=== PATIENT | female | born 1940 | race Caucasian/White ===

== ENCOUNTER 2016-11-16 11:17 | Day surgery (SDC) | payer MEDICARE ==
--- NOTE | 2016-11-16 08:34 | HP ---
PROCEDURE DATE: 11/16/16 HISTORY OF PRESENT ILLNESS: The patient is a 76 y/o with multiple medical problems. She had a percutaneous endoscopic gastrostomy tube placement in the past for esophageal cancer and treatments. Now, she is not using it. She is tolerating PO and tubes in for more than a year and she desires removal at this point and is no longer using. PAST MEDICAL HISTORY: Esophageal cancer, diabetes, hypothyroidism, hypercholesterolemia, and arthritis in the past. CURRENT MEDICATIONS: As listed per the list provided per the patient. ALLERGIES: NKDA. PAST SURGICAL HISTORY: Had a cholecystectomy. She had an upper endoscopy in the past. FAMILY HISTORY: Heart disease and cancer. SOCIAL HISTORY: No smoking or alcohol abuse. REVIEW OF SYSTEMS: 12 systems reviewed per admission assessment. No chest pain or palpitations. Other systems negative and noncontributory other than above and per preadmission questionnaire. She has had G tubes placed and removed in the past. She has had upper endoscopy and dilatation in the past. Had a port placed in the past. PHYSICAL EXAMINATION: GENERAL: No acute distress. HEENT: Sclerae nonicteric. NECK: No JVD. CHEST: Equal excursion. Nonlabored breathing. CVS: Regular rate and rhythm. ABDOMEN: Soft. No peritoneal signs. G tube site is okay. EXTREMITIES: No significant edema. NEURO: Alert, moving extremities grossly symmetrically. No gross motor deficits noted. IMPRESSION: 1. NO LONGER USING A FEEDING TUBE. TOLERATING PO WELL. DESIRES REMOVAL. IT IS OKAY WITH DR. GUAN. FEEL SHE IS A CANDIDATE. She has been discussed the option of removing in the office with local or not vs removal under sedation and local in the OR. She prefers proceeding in the OR. Therefore, will remove in the OR under IV sedation and local anesthetic. Risks and benefits explained in detail, but not limited to, bleeding; infection; risk of aches and pains; risk of persistent gastrocutaneous fistula tract that might require other surgical interventions down the road. She understands and agrees to the planned procedure as well as the remote possibility that the percutaneous endoscopic gastrostomy bumper could break off and might require other procedures. She understands all of the above and agrees to the planned procedure. Will proceed with removal of her gastrostomy tube as an outpatient.
[~2016-11-16 11:17] MED LIST: SUBLIMAZE 100 MCG/2 ML IV ONE; Sodium Chloride 0.9% 1000 ML 1,000 ML IV SCH; Sodium Chloride 0.9% 1000 ML 1,000 ML ONE; VERSED 5 MG/5 ML IV ONE
[2016-11-16] MEDS ORDERED: XYLOCAINE 1% HCL 20 ML MDV ONE (11:19)
[2016-11-16] MEDS ORDERED: BACIGUENT 30 GM ONE (13:21)
[2016-11-16 13:52] VITALS: O2SAT 94
[2016-11-16 14:16] VITALS: BP 119/64; PULSE 69
--- NOTE | 2016-11-17 08:35 | OP ---
SURGERY DATE/TIME: 11/16/2016 1303 PREOPERATIVE DIAGNOSIS: History of esophageal cancer, no longer requiring gastrostomy tube with desire for removal. POSTOPERATIVE DIAGNOSIS: History of esophageal cancer, no longer requiring gastrostomy tube with desire for removal. PROCEDURE: Removal of gastrostomy tube with closure of tract. SURGEON: Dr. James Vargas. ANESTHESIA: IV Fentanyl and Versed, 1% lidocaine local. ESTIMATED BLOOD LOSS: Minimal. INDICATIONS: As noted above. Risks and benefits explained in detail and not limited to, including risk of infection, nonhealing of the tract, consent was obtained. DESCRIPTION OF PROCEDURE AND FINDINGS: The patient is taken the operating room. After official time out and no disagreement with the planned procedure, she was incrementally sedated with IV Versed and Fentanyl initially 25 and 1 to start with. She was more alert and moving about. She was given additional IV Versed. It should be noted that she had some chronic low saturations prior to beginning the procedure but was improved on supplemental oxygen and this remained stable throughout the procedure. The area had been prepped and draped in usual sterile fashion. No disagreement with planned procedure, 1% lidocaine local was infiltrated in field pattern around the area. Once this was accomplished the traction on the G-tube carefully pulling the bumper through the tract intact and passed off. As the family reported she had problems with leaking from the tube in the past on past removals decided to go ahead and put some Prolene suture through it. Prolene sutures placed in interrupted fashion. Sterile dressing applied per the nursing staff. Findings discussed with the family out in the waiting area. She tolerated the procedure well. There were no immediate complications.
== END 2016-11-16 14:39 | disposition home or self-care (01) ==
LOC: SDC 11:17
PROVIDERS: ATTEND Surgery
PROC: 2W53XYZ Removal of Other Device on Abdominal Wall (ICD-10-PCS; principal; 2016-11-16)
DX: Z85.01 Personal history of malignant neoplasm of esophagus (principal); E11.9 Type 2 diabetes mellitus without complications; E03.9 Hypothyroidism, unspecified; E78.00 Pure hypercholesterolemia, unspecified; M19.90 Unspecified osteoarthritis, unspecified site; Z80.9 Family history of malignant neoplasm, unspecified
CPT/HCPCS: J1642; J2250; J3010; A9270-GY

== ENCOUNTER 2016-12-15 13:44 | Emergency (ER) | payer MEDICARE ==
[2016-12-15] MEDS ORDERED: BABY ASPIRIN 81 MG CHEW PO ONE (14:01)
[2016-12-15] MEDS ORDERED: Nitrostat 0.4 MG (ED) SL ONE ×2 (14:01→14:32)
--- NOTE | 2016-12-15 14:13 | ERPHSYRPT ---
- History of Present Illness Time Seen by Provider: 12/15/16 14:00 Historian: patient Exam Limitations: clinical condition Patient Subjective Stated Complaint: PT STATES THAT SHE IS HAVING PAIN BEGINNING IN HER CHEST GOING TO HER BACK ET ALL THE WAY DOWN HER ABD-DENIES DIAPHORSIS-DENIES SOB-DENIES N/V/D Triage Nursing Assessment: PT FLUSHED WARM ET [id number] ALL QUESTIONS CORRECTLY-MOVING ALL EXTREMTIIES WITH EASE-ABD SOFT ET NONTENDER Physician History: PATIENT WITH A HISTORY OF HYPO-THYROIDISM, TYPE 2 DIABETES MELLITUS, HYPERTENSION, AND CORONARY ARTERY DISEASE COMPLAINS OF SUBSTERNAL CHEST PAIN WHICH HAS BEEN CONSTANT SINCE 8AM THIS MORNING. THE PATIENT DESCRIBES HER PAIN SHARP PAIN DISCOMFORT, WITH A PAIN SCALE 5/10. DENIES DIAPHORESIS, PALPITATIONS, OR DYSPNEA Timing/Duration: today, hour(s), worse Quality: sharpness Location: substernal Chest Pain Radiation: back Severity of Pain-Max: moderate Severity of Pain-Current: moderate Associated Symptoms: shortness of breath, back pain Prior Chest Pain/Cardiac Workup: angina Nitro Today/Relief: 0.4 mg x 2, provided by ED Aspirin Treatment Today: 325 mg x 1 Allergies/Adverse Reactions: No Known Drug Allergies Allergy (Verified 12/15/16 14:00) Home Medications: Aspirin 81 mg PO DAILY 12/15/16 [History] Famotidine [Pepcid] 40 mg PO DAILY 12/15/16 [History] Glipizide 10 mg [Glucotrol 10 MG] 10 mg PO BID 12/15/16 [History] Levothyroxine Sodium 50 Mcg [Synthroid 50 Mcg] 50 mcg PO DAILY 12/15/16 [ History] Metformin HCl 500 mg [Glucophage 500 MG] 500 mg PO BID 12/15/16 [History] Metoclopramide HCl 10 mg [Reglan 10 MG] 10 mg PO BID 12/15/16 [History] Nebivolol HCl [Bystolic] 10 mg PO BID 12/15/16 [History] Omeprazole 40 mg PO HS 12/15/16 [History] Sucralfate 1 gm [Carafate 1 GM] 1 gm PO DAILY 12/15/16 [History] Hx Tetanus, Diphtheria Vaccination/Date Given: No Hx Influenza Vaccination/Date Given: Yes Hx Pneumococcal Vaccination/Date Given: (unsure) Immunizations Up to Date: Yes - Review of Systems Constitutional: No Fever, No Chills Eyes: No Symptoms Ears, Nose, & Throat: No Symptoms Respiratory: No Symptoms, No Cough, No Dyspnea Cardiac: Chest Pain, No Edema, No Syncope Abdominal/Gastrointestinal: No Symptoms, No Abdominal Pain, No Nausea, No Vomiting, No Diarrhea Genitourinary Symptoms: No Symptoms, No Dysuria Musculoskeletal: No Symptoms, No Back Pain, No Neck Pain Skin: No Symptoms, No Rash Neurological: No Dizziness, No Focal Weakness, No Sensory Changes Psychological: No Symptoms Endocrine: No Symptoms All Other Systems: Reviewed and Negative - Past Medical History Pertinent Past Medical History: Yes Neurological History: No Pertinent History ENT History: Other Cardiac History: Angina, High Cholesterol, Hypertension, Myocardial Infarction ( [place]) Respiratory History: No Pertinent History Endocrine Medical History: Diabetes Type II, Hypothyroidism Musculoskeletal History: Arthritis, Other GI Medical History: GERD, Other History: No Pertinent History Psycho-Social History: Anxiety Female Reproductive Disorders: No Pertinent History Other Medical History: hx fx L wrist, L ankle, Esophageal cancer, wears glasses to read - Past Surgical History Past Surgical History: Yes Neuro Surgical History: No Pertinent History Cardiac: Cardiac Catheterization Respiratory: No Pertinent History Gastrointestinal: Cholecystectomy Genitourinary: No Pertinent History Musculoskeletal: No Pertinent History Female Surgical History: No Pertinent History Other Surgical History: skin cancer surgical removal L F/A, PEG placed, CVL port placed, endoscopic US - x3 times. radiation and chemotherapy, D/C - Social History Smoking Status: Never smoker Exposure to second hand smoke: No Drug Use: none Patient Lives Alone: No - Nursing Vital Signs Temperature: 98.1 F Temperature Source: Oral Pulse Rate: 81 Respiratory Rate: 20 Pain Intensity: 4 - Physical Exam General Appearance: no apparent distress, alert Eye Exam: PERRL/EOMI, eyes nml inspection Ears, Nose, Throat Exam: normal ENT inspection, moist mucous membranes Neck Exam: normal inspection, non-tender, supple, full range of motion Respiratory Exam: normal breath sounds, lungs clear, No respiratory distress Cardiovascular Exam: regular rate/rhythm, normal heart sounds Gastrointestinal/Abdomen Exam: soft, normal bowel sounds, No tenderness, No mass Back Exam: normal inspection, No CVA tenderness, No vertebral tenderness Extremity Exam: normal inspection, normal range of motion, pedal edema (+1 PITTING EDEMA) Neurologic Exam: alert, oriented x 3, cooperative, normal mood/affect, sensation nml, No motor deficits Skin Exam: normal color, warm, dry SpO2 Interpretation: normal SpO2: 97 Oxygen Delivery: Room Air - Course EKG Interpreted by Me: RATE, Sinus Rhythm, NORMAL AXIS - Radiology Exams Chest X-ray Interpretation: Discussed w/ radiologist, Negative, No Pneumonia, No Pneumothorax Ordered Tests: Active Orders 24 hr Category Date Time Status Senior Finance Manager STAT Care 12/15/16 14:01 Active Cath for Residual-In & Out STAT Care 12/15/16 14:01 Inactive Clean Catch Urine Specimen STAT Care 12/15/16 14:07 Active IV Insertion STAT Care 12/15/16 14:01 Active Oxygen-ED Only NASAL CANNULA 2 lpm Care 12/15/16 14:01 Active CHEST 1 VIEW (PORTABLE) Stat Exams 12/15/16 14:03 Completed CBC W DIFF Stat Lab 12/15/16 14:10 Completed CMP Stat Lab 12/15/16 14:10 Completed D-DIMER QUANTITATION Stat Lab 12/15/16 14:10 Completed MAGNESIUM Stat Lab 12/15/16 14:10 Completed NT PRO BNP Stat Lab 12/15/16 14:10 Completed PROTIME WITH INR Stat Lab 12/15/16 14:10 Completed TROPONIN Q3H Lab 12/15/16 14:10 Completed TROPONIN Q3H Lab 12/15/16 17:15 Ordered TROPONIN Q3H Lab 12/15/16 20:15 Ordered TROPONIN Q3H Lab 12/15/16 23:15 Ordered TROPONIN Q3H Lab 12/16/16 02:15 Ordered UA W/ MICROSCOPIC Stat Lab 12/15/16 14:54 Completed Medication Summary Generic Name Dose Route Start Last Admin Trade Name Freq PRN Reason Stop Dose Admin Sodium Chloride 1,000 mls @ 50 mls/hr 12/15/16 14:15 12/15/16 14:38 Sodium Chloride 0.9% 1000 Ml IV 01/14/17 14:14 50 mls/hr .Q20H KHARI Administration Discontinued Medications Generic Name Dose Route Start Last Admin Trade Name Freq PRN Reason Stop Dose Admin Aspirin 324 mg 12/15/16 14:01 12/15/16 14:38 Baby Aspirin 81 Mg Chew PO 12/15/16 14:02 324 mg STAT ONE Administration Aspirin Confirm 12/15/16 14:32 Baby Aspirin 81 Mg Chew Administered 12/15/16 14:33 Dose 324 mg .ROUTE .STK-MED ONE Enoxaparin Sodium 60 mg 12/15/16 15:43 12/15/16 15:58 Enoxaparin Sodium SQ 12/15/16 15:44 60 mg STAT ONE Administration Enoxaparin Sodium Confirm 12/15/16 15:54 Enoxaparin Sodium Administered 12/15/16 15:55 Dose 80 mg SQ .STK-MED ONE Nitroglycerin 0.4 mg 12/15/16 14:01 12/15/16 14:38 Nitrostat 0.4 Mg (Ed) SL 12/15/16 14:02 0.4 mg STAT ONE Administration Nitroglycerin Confirm 12/15/16 14:32 Nitrostat 0.4 Mg (Ed) Administered 12/15/16 14:33 Dose 0.4 mg SL .STK-MED ONE Nitroglycerin 1 gm 12/15/16 15:09 12/15/16 15:58 Nitro-Bid 2% Ud Packets TOP 12/15/16 15:10 1 gm STAT ONE Administration Nitroglycerin Confirm 12/15/16 15:54 Nitro-Bid 2% Ud Packets Administered 12/15/16 15:55 Dose 1 gm .ROUTE .STK-MED ONE Lab/Rad Data: Laboratory Result Diagrams 12/15/16 14:10 12/15/16 14:10 Laboratory Results 12/15/16 12/15/16 12/15/16 Range/Units 14:54 14:10 14:10 WBC (4.0-10.5) K/mm3 RBC (4.1-5.4) M/mm3 Hgb (12.0-16.0) gm/dl Hct (35-47) % MCV (78-100) fl MCH (26-32) pg MCHC (32-36) g/dl RDW (11.5-14.0) % Plt Count (150-450) K/mm3 MPV (6-9.5) fl Gran % (36.0-66.0) % Lymphocytes % (24.0-44.0) % Monocytes % (0.0-12.0) % Eosinophils % (0.00-5.0) % Basophils % (0.0-0.4) % Basophils # (0-0.4) INR 0.94 (0.8-3.0) D-Dimer 1.713 H* (0.00-0.49) mg/L Sodium (136-145) mEq/L Potassium (3.5-5.1) mEq/L Chloride (98-107) mEq/L Carbon Dioxide (21-32) mEq/L Anion Gap (5-15) MEQ/L BUN (9-20) mg/dL Creatinine (0.55-1.30) mg/dl Estimated GFR ML/MIN Glucose (70-110) MG/DL Calcium (8.5-10.1) mg/dL Magnesium (1.8-2.4) mg/dL Total Bilirubin (0.2-1.0) mg/dL AST (15-37) U/L ALT (12-78) U/L Alkaline Phosphatase (46-116) U/L Troponin I < 0.017 (0.000-0.056) ng/ml NT-Pro-B Natriuret Pep (0-450) pg/ml Serum Total Protein (6.4-8.2) gm/dL Albumin (3.4-5.0) g/dL Ur Collection Type VOID Urine Color YELLOW (YELLOW) Urine Appearance CLEAR (CLEAR) Urine pH 7.0 (5-6) Ur Specific [place] 1.020 (1.005-1.025) Urine Protein NEGATIVE (Negative) Urine Glucose (UA) NEGATIVE (NEGATIVE) mg/dL Urine Ketones NEGATIVE (NEGATIVE) Urine Nitrite NEGATIVE (NEGATIVE) Urine Bilirubin NEGATIVE (NEGATIVE) Urine Urobilinogen 1 (0-1) mg/dL Urine WBC (Auto) MODERATE (NEGATIVE) Urine RBC (Auto) NEGATIVE (0-5) [place]/ul Urine Microscopic WBC 5-10 (0-5) /HPF Ur Epithelial Cells RARE (FEW) /HPF Urine Bacteria FEW (NEGATIVE) /HPF Specimen Received 12/15/16 1510 12/15/16 12/15/16 Range/Units 14:10 14:10 WBC 10.4 (4.0-10.5) K/mm3 RBC 4.19 (4.1-5.4) M/mm3 Hgb 13.0 (12.0-16.0) gm/dl Hct 40.3 (35-47) % MCV 96.2 (78-100) fl MCH 31.0 (26-32) pg MCHC 32.3 (32-36) g/dl RDW 13.0 (11.5-14.0) % Plt Count 181 (150-450) K/mm3 MPV 11.0 H (6-9.5) fl Gran % 76.1 H (36.0-66.0) % Lymphocytes % 12.2 L (24.0-44.0) % Monocytes % 10.9 (0.0-12.0) % Eosinophils % 0.6 (0.00-5.0) % Basophils % 0.2 (0.0-0.4) % Basophils # 0.02 (0-0.4) INR (0.8-3.0) D-Dimer (0.00-0.49) mg/L Sodium 138 (136-145) mEq/L Potassium 4.4 (3.5-5.1) mEq/L Chloride 101 (98-107) mEq/L Carbon Dioxide 28.1 (21-32) mEq/L Anion Gap 13.1 (5-15) MEQ/L BUN 34 H (9-20) mg/dL Creatinine 1.19 (0.55-1.30) mg/dl Estimated GFR 47 ML/MIN Glucose 162 H (70-110) MG/DL Calcium 9.3 (8.5-10.1) mg/dL Magnesium 1.7 L (1.8-2.4) mg/dL Total Bilirubin 0.3 (0.2-1.0) mg/dL AST 12 L (15-37) U/L ALT 15 (12-78) U/L Alkaline Phosphatase 65 (46-116) U/L Troponin I (0.000-0.056) ng/ml NT-Pro-B Natriuret Pep 344 (0-450) pg/ml Serum Total Protein 6.6 (6.4-8.2) gm/dL Albumin 3.5 (3.4-5.0) g/dL Ur Collection Type Urine Color (YELLOW) Urine Appearance (CLEAR) Urine pH (5-6) Ur Specific [place] (1.005-1.025) Urine Protein (Negative) Urine Glucose (UA) (NEGATIVE) mg/dL Urine Ketones (NEGATIVE) Urine Nitrite (NEGATIVE) Urine Bilirubin (NEGATIVE) Urine Urobilinogen (0-1) mg/dL Urine WBC (Auto) (NEGATIVE) Urine RBC (Auto) (0-5) [place]/ul Urine Microscopic WBC (0-5) /HPF Ur Epithelial Cells (FEW) /HPF Urine Bacteria (NEGATIVE) /HPF Specimen Received - Progress Progress: improved Progress Note: 12/15/16 15:11 PATIENT GIVEN IV NORMAL SALINE 50ML/HR, NTG 0.4MG SL, PAIN IMPROVED TO 2/10, NITROPASTE 1" ANTERIOR CHEST WALL APPLIED. DDIMER OF 1.7 Discussed with : Other (DR BURNS AT 1600 ACCEPTS TRANSFER TO [facility]IA [facility]) - Departure Time of Disposition: 16:45 Departure Disposition: Transfer Clinical Impression: ACUTE CHEST PAIN Condition: Stable Critical Care Time: No Referrals: CHANI SPANN [Primary Care Provider] -
[2016-12-15] MEDS ORDERED: Sodium Chloride 0.9% 1000 ML 1,000 ML IV SCH (14:15)
[2016-12-15 14:18] LABS: BASOPHIL % 0.2 % (0.0-0.4); Eosinophil % 0.6 % (0.00-5.0); Granulocytes % 76.1 % (36.0-66.0); Lymphocytes % 12.2 % (24.0-44.0); Mean Cell Volume 96.2 fl (78-100); Monocytes % 10.9 % (0.0-12.0); Platelet Count 181 K/mm3 (150-450); Red Blood Count 4.19 M/mm3 (4.1-5.4); White Blood Count 10.4 K/mm3 (4.0-10.5)
--- NOTE | 2016-12-15 14:25 | XRAY ---
Exam: AP portable chest film from 1413 hrs. on 12/15/2016. Comparison: C-arm image of the upper left chest from 11/18/2015 and AP portable chest film from 03/19/2011. Indication: Chest pain since this morning. Findings: There has been an adequate inspiratory effort. A left-sided portacatheter is seen with the tip extending into the SVC pointing inferiorly. The transverse heart size is normal. There is mild tortuosity of the descending thoracic aorta. The remainder the som and mediastinal structures appears unremarkable. A couple tiny calcified granulomas are seen at the right lung base and overlying the right hilum. No air space infiltrates, vascular congestion, pneumothorax, or pleural fluid is seen. There is also a tiny calcified granuloma within the left lung apex. The visualized bones appear intact. Impression: 1. No acute cardiopulmonary process is seen. This is unchanged from 03/19/2011.
[2016-12-15] MEDS ORDERED: Sodium Chloride 0.9% 1000 ML 1,000 ML ONE (14:32)
[2016-12-15] MEDS ORDERED: BABY ASPIRIN 81 MG CHEW ONE (14:32)
[2016-12-15 14:55] LABS: ALBUMIN 3.5 g/dL (3.4-5.0); ANION GAP 13.1 MEQ/L (5-15); BILIRUBIN,TOTAL 0.3 mg/dL (0.2-1.0); Carbon Dioxide 28.1 mEq/L (21-32); MAGNESIUM 1.7 mg/dL (1.8-2.4); Potassium 4.4 mEq/L (3.5-5.1); Total Protein 6.6 gm/dL (6.4-8.2)
[2016-12-15 14:57] LABS: INR 0.94 (0.8-3.0); PROTIME 10.6 SECONDS (9.95-12.35)
[2016-12-15] MEDS ORDERED: NITRO-BID 2% UD PACKETS TOP ONE (15:09)
[2016-12-15 15:32] LABS: Bacteria FEW /HPF (NEGATIVE); COMPLETE URINE MICROSCOPIC? YES; Collection Type VOID; Epithelial Cells RARE /HPF (FEW)
[2016-12-15] MEDS ORDERED: ENOXAPARIN SODIUM SQ ONE ×2 (15:43→15:54)
[2016-12-15] MEDS ORDERED: NITRO-BID 2% UD PACKETS ONE (15:54)
[2016-12-15 16:50] VITALS: PULSE 81; O2SAT 97
[2016-12-15 16:51] VITALS: BP 129/69
== END 2016-12-15 17:45 | disposition short-term general hospital (02) ==
LOC: ED 13:44
DX: R07.89 Other chest pain (principal); I10 Essential (primary) hypertension; E03.9 Hypothyroidism, unspecified; E11.9 Type 2 diabetes mellitus without complications; I25.10 Atherosclerotic heart disease of native coronary artery without angina pectoris; R06.02 Shortness of breath; Z79.899 Other long term (current) drug therapy; Z79.84 Long term (current) use of oral hypoglycemic drugs
CPT/HCPCS: 36000; 36415; 71010; 80053; 81000; 83735; 83880; 84484; 85025; 85379; 85610; 93041; 96360; 96361; 96372; 99285; J1650; A9270-GY

== ENCOUNTER 2018-06-18 18:43 | Emergency (ER) | payer MEDICARE ==
--- NOTE | 2018-06-18 19:11 | ERPHSYRPT ---
- History of Present Illness Time Seen by Provider: 06/18/18 19:35 Source: patient, family Exam Limitations: no limitations Patient Subjective Stated Complaint: shortenss of breath AND pain in her back FOR ABOUT A DAY IN A HALF CONCERNED DUE TO PATIENTS EXTENSIVE CANCER HISTORY Triage Nursing Assessment: PT IS ALERT AND ORIENTEDX3, AMBUALTES BY SELF, GAIT IS STEADY, SOME WEKANESS, GETS WINDED , LUNG SOUNDS CLEAR DIMINISHED, PULSES EQUAL BIALTERAL RADIUS, EDEMA NOTED IN LOWER EXTREMITIES, PEDAL PULSES PRESENT. SKIN WAMR DRY ANDINTACT, SKIN AREA ON LEFT FOREARM THAT IS BEIGN REMOVED BY DR IN NEXT COUPLE WEEKS. Physician History: pt is 77 year old 2 year survivor in remission from esophageal cancer SP rad and chemo in 2015/2016, but with new back pain - prior T spine MET now also short of breath - no CABG or stents but has had CHF - no chest pain at this time; no abd evie PO OK- prior Gpeg tube now out; no fever , no trauma, no blood thinners; Timing/Duration: day(s) Back Pain Location: T-spine Severity of Pain-Max: moderate Severity of Pain-Current: moderate Modifying Factors: Improves With: movement Associated Symptoms: other (short of breath) Previous symptoms: no prior history Allergies/Adverse Reactions: No Known Drug Allergies Allergy (Verified 12/15/16 14:00) Home Medications: Aspirin 81 mg PO DAILY 12/15/16 [History] Famotidine [Pepcid] 40 mg PO DAILY 12/15/16 [History] Glipizide 10 mg [Glucotrol 10 MG] 10 mg PO BID 12/15/16 [History] Levothyroxine Sodium 50 Mcg [Synthroid 50 Mcg] 50 mcg PO DAILY 12/15/16 [ History] Metformin HCl 500 mg [Glucophage 500 MG] 500 mg PO BID 12/15/16 [History] Metoclopramide HCl 10 mg [Reglan 10 MG] 10 mg PO BID 12/15/16 [History] Nebivolol HCl [Bystolic] 10 mg PO BID 12/15/16 [History] Omeprazole 40 mg PO HS 12/15/16 [History] Sucralfate 1 gm [Carafate 1 GM] 1 gm PO DAILY 12/15/16 [History] Hx Tetanus, Diphtheria Vaccination/Date Given: No Hx Influenza Vaccination/Date Given: Yes Hx Pneumococcal Vaccination/Date Given: (unsure) - Review of Systems Constitutional: No Fever, No Chills Eyes: No Symptoms Ears, Nose, & Throat: No Symptoms Respiratory: Dyspnea, No Cough Cardiac: No Chest Pain, No Edema, No Syncope Abdominal/Gastrointestinal: No Abdominal Pain, No Nausea, No Vomiting, No Diarrhea Genitourinary Symptoms: No Dysuria Musculoskeletal: Back Pain, No Neck Pain Skin: No Rash Neurological: No Dizziness, No Focal Weakness, No Sensory Changes Psychological: No Symptoms Endocrine: No Symptoms All Other Systems: Reviewed and Negative - Past Medical History Pertinent Past Medical History: Yes Neurological History: No Pertinent History ENT History: Other Cardiac History: Angina, High Cholesterol, Hypertension, Myocardial Infarction ( [place]) Respiratory History: No Pertinent History Endocrine Medical History: Diabetes Type II, Hypothyroidism Musculoskeletal History: Arthritis, Other GI Medical History: GERD, Other History: No Pertinent History Psycho-Social History: Anxiety Female Reproductive Disorders: No Pertinent History Other Medical History: hx fx L wrist, L ankle, Esophageal cancer, wears glasses to read - Past Surgical History Past Surgical History: Yes Neuro Surgical History: No Pertinent History Cardiac: Cardiac Catheterization Respiratory: No Pertinent History Gastrointestinal: Cholecystectomy Genitourinary: No Pertinent History Musculoskeletal: No Pertinent History Female Surgical History: No Pertinent History Other Surgical History: skin cancer surgical removal L F/A, PEG placed, CVL port placed, endoscopic US - x3 times. radiation and chemotherapy, D/C - Social History Smoking Status: Never smoker Exposure to second hand smoke: No Drug Use: none Patient Lives Alone: No - Female History Hx Now: No - Nursing Vital Signs Nursing Vital Signs: Initial Vital Signs Temperature 97.8 F 06/18/18 18:44 Pulse Rate 87 06/18/18 18:44 Respiratory Rate 18 06/18/18 18:44 Blood Pressure 206/87 06/18/18 18:44 O2 Sat by Pulse Oximetry 98 06/18/18 18:44 Pain Scale Pain Intensity [Upper Back] 0 Pain Intensity 5 - Physical Exam General Appearance: no apparent distress, alert Eye Exam: PERRL/EOMI, eyes nml inspection Ears, Nose, Throat Exam: normal ENT inspection Neck Exam: normal inspection, non-tender, supple, full range of motion, No meningismus, No midline tenderness Respiratory Exam: normal breath sounds, lungs clear, No respiratory distress Cardiovascular Exam: regular rate/rhythm, normal heart sounds Gastrointestinal Exam: soft, No tenderness, No distention, No mass, No guarding , No pulsatile mass, No rebound Pelvic Exam: deferred Rectal Exam: deferred Back Exam: vertebral tenderness, point tenderness Extremity Exam: normal inspection, normal range of motion, No calf tenderness, No pedal edema Peripheral Pulses: carotid (R): 2+, carotid (L): 2+, femoral (R): 2+, femoral (L ): 2+, dorsalis-pedis (R): 2+, dorsalis-pedis (L): 2+ Neurologic Exam: alert, oriented x 3, cooperative, box annealer II-XII nml as tested, normal mood/affect, nml station & gait, sensation nml, No motor deficits Skin Exam: normal color, warm, dry, No rash SpO2 Interpretation: normal SpO2: 98 Oxygen Delivery: Room Air - Course Nursing assessment & vital signs reviewed: Yes EKG Interpreted by Me: Sinus Rhythm, NORMAL AXIS, NORMAL INTERVALS, Non- specific ST Changes, Other (old TN unchanged from November EKG) - Radiology Exams Chest X-ray Interpretation: Reviewed by me, Other (nodules bilateral some previous- pt to see PCP for w/u) Ordered Tests: Active Orders 24 hr Category Date Time Status Postage Machine Operator STAT Care 06/18/18 19:14 Active Clean Catch Urine Specimen STAT Care 06/18/18 19:12 Active EKG-ER Only STAT Care 06/18/18 19:12 Active IV Insertion STAT Care 06/18/18 19:12 Active IV Insertion STAT Care 06/18/18 19:12 Active Pulse Oximetry (ED) STAT Care 06/18/18 19:12 Active CHEST 2 VIEWS (PA AND LAT) Stat Exams 06/18/18 19:13 Taken AMYLASE Stat Lab 06/18/18 19:51 Completed CBC W DIFF Stat Lab 06/18/18 19:51 Completed CMP Stat Lab 06/18/18 19:51 Completed CULTURE,URINE Stat Lab 06/18/18 19:51 Received D-DIMER QUANTITATION Stat Lab 06/18/18 19:51 Completed LIPASE Stat Lab 06/18/18 19:51 Completed Lactic Acid Stat Lab 06/18/18 19:48 Results NT PRO BNP Stat Lab 06/18/18 19:51 Completed TROPONIN Q3H Lab 06/18/18 19:51 Completed TROPONIN Q3H Lab 06/18/18 22:30 Ordered TROPONIN Q3H Lab 06/19/18 01:30 Ordered TROPONIN Q3H Lab 06/19/18 04:30 Ordered TROPONIN Q3H Lab 06/19/18 07:30 Ordered UA W/RFX UR CULTURE Stat Lab 06/18/18 19:51 Completed Medication Summary Generic Name Dose Route Start Last Admin Trade Name Freq PRN Reason Stop Dose Admin Sodium Chloride 1,000 mls @ 50 mls/hr 06/18/18 19:15 06/18/18 19:25 Sodium Chloride 0.9% 1000 Ml IV 07/18/18 19:14 50 mls/hr .Q20H KHARI Administration Discontinued Medications Generic Name Dose Route Start Last Admin Trade Name Freq PRN Reason Stop Dose Admin Lidocaine/Prilocaine 2.5 gm 06/18/18 19:28 06/18/18 19:59 Emla Cream 5 Gm TP 06/18/18 19:29 Not Given STAT ONE Lab/Rad Data: Laboratory Result Diagrams 06/18/18 19:51 06/18/18 19:51 Laboratory Results 06/18/18 06/18/18 06/18/18 Range/Units 19:51 19:51 19:51 WBC (4.0-10.5) K/mm3 RBC (4.1-5.4) M/mm3 Hgb (12.0-16.0) gm/dl Hct (35-47) % MCV (78-100) fl MCH (26-32) pg MCHC (32-36) g/dl RDW (11.5-14.0) % Plt Count (150-450) K/mm3 MPV (6-9.5) fl Gran % (36.0-66.0) % Eos # (Auto) (0-0.5) Absolute Lymphs (auto) (1.0-4.6) Absolute Monos (auto) (0.0-1.3) Lymphocytes % (24.0-44.0) % Monocytes % (0.0-12.0) % Eosinophils % (0.00-5.0) % Basophils % (0.0-0.4) % Absolute Granulocytes (1.4-6.9) Basophils # (0-0.4) D-Dimer 596 H* (215-500) ng/mL Sodium (137-145) mmol/L Potassium (3.5-5.1) mmol/L Chloride (98-107) mmol/L Carbon Dioxide (22-30) mmol/L Anion Gap (5-15) MEQ/L BUN (7-17) mg/dL Creatinine (0.52-1.04) mg/dL Estimated GFR ML/MIN Glucose (74-106) mg/dL Lactic Acid (0.4-2.0) Calcium (8.4-10.2) mg/dL Total Bilirubin (0.2-1.3) mg/dL AST (14-36) U/L ALT (0-35) U/L Alkaline Phosphatase (38-126) U/L Troponin I < 0.012 (0.000-0.034) ng/mL NT-Pro-B Natriuret Pep (0-1800) pg/mL Serum Total Protein (6.3-8.2) g/dL Albumin (3.5-5.0) g/dL Amylase (30-110) U/L Lipase (23-300) U/L Urine Color YELLOW (YELLOW) Urine Appearance SLIGHTLY CLOUDY (CLEAR) Urine pH 6.0 (5-6) Ur Specific [place] 1.011 (1.005-1.025) Urine Protein NEGATIVE (Negative) Urine Ketones NEGATIVE (NEGATIVE) Urine Blood NEGATIVE (0-5) Ded[place]/ul Urine Nitrite NEGATIVE (NEGATIVE) Urine Bilirubin NEGATIVE (NEGATIVE) Urine Urobilinogen NORMAL (0-1) mg/dL Ur Leukocyte Esterase LARGE (NEGATIVE) Urine WBC (Auto) 6-10 (0-5) /HPF Urine RBC (Auto) 0-2 (0-2) /HPF U Epithel Cells (Auto) RARE (FEW) /HPF Urine Bacteria (Auto) RARE (NEGATIVE) /HPF U Non-Squamous Epi Cells RARE (FEW) /HPF Urine Mucus (Auto) SLIGHT (NEGATIVE) /HPF Urine Culture Reflexed YES (NO) Urine Glucose 50 (NEGATIVE) mg/dL 06/18/18 06/18/18 06/18/18 Range/Units 19:51 19:51 19:48 WBC 8.4 (4.0-10.5) K/mm3 RBC 4.69 (4.1-5.4) M/mm3 Hgb 11.5 L (12.0-16.0) gm/dl Hct 36.3 (35-47) % MCV 77.4 L (78-100) fl MCH 24.5 L (26-32) pg MCHC 31.7 L (32-36) g/dl RDW 14.6 H (11.5-14.0) % Plt Count 226 (150-450) K/mm3 MPV 9.8 H (6-9.5) fl Gran % 63.4 (36.0-66.0) % Eos # (Auto) 0.17 (0-0.5) Absolute Lymphs (auto) 1.94 (1.0-4.6) Absolute Monos (auto) 0.90 (0.0-1.3) Lymphocytes % 23.2 L (24.0-44.0) % Monocytes % 10.8 (0.0-12.0) % Eosinophils % 2.0 (0.00-5.0) % Basophils % 0.6 (0.0-0.4) % Absolute Granulocytes 5.31 (1.4-6.9) Basophils # 0.05 (0-0.4) D-Dimer (215-500) ng/mL Sodium 131 L (137-145) mmol/L Potassium 4.6 (3.5-5.1) mmol/L Chloride 90 L (98-107) mmol/L Carbon Dioxide 29 (22-30) mmol/L Anion Gap 16.7 H (5-15) MEQ/L BUN 16 (7-17) mg/dL Creatinine 1.04 (0.52-1.04) mg/dL Estimated GFR 54.5 ML/MIN Glucose 237 H (74-106) mg/dL Lactic Acid 2.4 H (0.4-2.0) Calcium 9.6 (8.4-10.2) mg/dL Total Bilirubin 0.20 (0.2-1.3) mg/dL AST 16 (14-36) U/L ALT 14 (0-35) U/L Alkaline Phosphatase 56 (38-126) U/L Troponin I (0.000-0.034) ng/mL NT-Pro-B Natriuret Pep 528 (0-1800) pg/mL Serum Total Protein 7.1 (6.3-8.2) g/dL Albumin 4.6 (3.5-5.0) g/dL Amylase 48 (30-110) U/L Lipase 24 (23-300) U/L Urine Color (YELLOW) Urine Appearance (CLEAR) Urine pH (5-6) Ur Specific [place] (1.005-1.025) Urine Protein (Negative) Urine Ketones (NEGATIVE) Urine Blood (0-5) Dedrick/ul Urine Nitrite (NEGATIVE) Urine Bilirubin (NEGATIVE) Urine Urobilinogen (0-1) mg/dL Ur Leukocyte Esterase (NEGATIVE) Urine WBC (Auto) (0-5) /HPF Urine RBC (Auto) (0-2) /HPF U Epithel Cells (Auto) (FEW) /HPF Urine Bacteria (Auto) (NEGATIVE) /HPF U Non-Squamous Epi Cells (FEW) /HPF Urine Mucus (Auto) (NEGATIVE) /HPF Urine Culture Reflexed (NO) Urine Glucose (NEGATIVE) mg/dL - Progress Progress: improved, re-examined Progress Note: 06/18/18 20:37 discussed slight elevated D-Dimer with pt and family and risk for PE and - she is not sobreath now and has had good pulso ox so lower risk of major pe , but explained there could be one undetected or forming DVTs - they wish to decline further w/u such as PE angio or alternatives such as venous US as well after discussion of risk/benefits , and wish to f/u PCP and return if furhter symptoms- I also advised of lung nodules which may be increased , but need comparison to prior lung findings in same area , and also of some mild increased compression of vertebrae since 2017 , but with interventions in some and they will see their DrGe to check for progression and for further recur of cancer; 06/18/18 20:41 06/18/18 20:57 the pt and family also wish to wait further eval with their prior to any anticoag proph , after discussion of risks and benefits. Counseled pt/family regarding: lab results, diagnosis, need for follow-up, rad results - Departure Time of Disposition: 20:42 Departure Disposition: Home Clinical Impression: prog of comp fractures T sp with int rep, Lung nodules Condition: Good Critical Care Time: No Referrals: SPANN,CHANI D [Primary Care Provider] - Instructions: Vertebral Compression Fracture, Multiple Pulmonary Nodules Additional Instructions: you have treated compression fractures which appear stable , but also some additional compression since december 2016, which need to be compared to an interval film when available with your Drs. in order to rule out a progression since your last treatments. You have some lung scars and/or nodules several of which seem to have been present in 2017 and 2015 , but again need to be compared to your more recent films to exclude a process there - by your Drs. You do have a slightly elevated test which sometimes indicates a blood clot , but can be elevated from several other things, so additional workup has been advised to evaluate this. Since you are at a risk for blood clots , and cardiac disease progression, keep this in mind to return if any further breathing or heart symptoms.
[2018-06-18] MEDS ORDERED: Sodium Chloride 0.9% 1000 ML 1,000 ML IV SCH (19:15)
[2018-06-18] MEDS ORDERED: Sodium Chloride 0.9% 1000 ML 1,000 ML ONE (19:23)
[2018-06-18] MEDS ORDERED: EMLA Cream 5 GM TP ONE (19:28)
[2018-06-18 19:55] LABS: BASOPHIL % 0.6 % (0.0-0.4); Basophil (Absolute #) 0.05 (0-0.4); Eosinophil (Absolute #) 0.17 (0-0.5); Granulocyte Absolute (ANC) 5.31 (1.4-6.9); Granulocytes % 63.4 % (36.0-66.0); Hematocrit 36.3 % (35-47); Hemoglobin 11.5 gm/dl (12.0-16.0); Lymphocyte (Absolute #) 1.94 (1.0-4.6); Lymphocytes % 23.2 % (24.0-44.0); Mean Cell Volume 77.4 fl (78-100); Mean Corpuscular Hemoglobin 24.5 pg (26-32); Mean Corpuscular Hgb Concent. 31.7 g/dl (32-36); Mean Platelet Volume 9.8 fl (6-9.5); Monocytes % 10.8 % (0.0-12.0); Platelet Count 226 K/mm3 (150-450); Red Blood Count 4.69 M/mm3 (4.1-5.4); Red Cell Distribution Width 14.6 % (11.5-14.0); White Blood Count 8.4 K/mm3 (4.0-10.5)
[2018-06-18 19:55] LABS: Lactic Acid 2.4 (0.4-2.0)
[2018-06-18 20:01] LABS: Glucose 50 mg/dL (NEGATIVE); Protein,Urine Dip NEGATIVE (Negative)
[2018-06-18 20:04] LABS: Appearance SLIGHTLY CLOUDY (CLEAR); Ketones NEGATIVE (NEGATIVE); Leukocyte Esterase LARGE (NEGATIVE); Nitrite NEGATIVE (NEGATIVE); Specific Gravity 1.011 (1.005-1.025)
[2018-06-18 20:05] LABS: Bilirubin NEGATIVE (NEGATIVE); Blood NEGATIVE Ery/ul (0-5); Urobilinogen NORMAL mg/dL (0-1)
[2018-06-18 20:28] LABS: ALBUMIN 4.6 g/dL (3.5-5.0); ANION GAP 16.7 MEQ/L (5-15); BILIRUBIN,TOTAL 0.2 mg/dL (0.2-1.3); Calcium 9.6 mg/dL (8.4-10.2); Creatinine 1 1.04 mg/dL (0.52-1.04); Potassium 4.6 mmol/L (3.5-5.1); Total Protein 7.1 g/dL (6.3-8.2)
[2018-06-18 20:42] VITALS: O2SAT 98
[2018-06-18 21:18] VITALS: BP 160/92; PULSE 75
--- NOTE | 2018-06-18 22:30 | XRAY ---
Indication: Short of breath and back pain. No known injury. Comparison: December 15, 2016. PA/lateral chest remains hyperinflated and clear again with a few incidental tiny calcified granulomas. Heart is not enlarged with stable left Port-A-Cath. Bony thorax intact again with mild osteopenia and degenerative changes. Interval T7-T10 kyphoplasty. Impression: Nonacute hyperinflated chest with chronic features.
== END 2018-06-18 21:16 | disposition home or self-care (01) ==
LOC: ED 18:43
DX: M48.54XS Collapsed vertebra, not elsewhere classified, thoracic region, sequela of fracture (principal); R91.1 Solitary pulmonary nodule; R79.1 Abnormal coagulation profile; F41.9 Anxiety disorder, unspecified; Z85.828 Personal history of other malignant neoplasm of skin; E78.00 Pure hypercholesterolemia, unspecified; I10 Essential (primary) hypertension; I25.2 Old myocardial infarction; E11.9 Type 2 diabetes mellitus without complications; Z79.4 Long term (current) use of insulin; E03.9 Hypothyroidism, unspecified; M19.90 Unspecified osteoarthritis, unspecified site; K21.9 Gastro-esophageal reflux disease without esophagitis; Z79.899 Other long term (current) drug therapy
CPT/HCPCS: 36000; 36415; 71046; 80053; 81001; 82150; 83605; 83690; 83880; 84484; 85025; 85379; 87086; 93005; 93041; 96360; 96361; 96365; 99284; A9270-GY

== ENCOUNTER 2018-09-08 13:16 | Emergency (ER) | payer MEDICARE ==
--- NOTE | 2018-09-08 13:59 | ERPHSYRPT ---
- History of Present Illness Time Seen by Provider: 09/08/18 13:47 Source: patient Exam Limitations: no limitations Physician History: The patient is a 77-year-old female with a friend complaining that she has a gradual onset of shortness of breath the last 2 weeks. Today when she stood up and walked across the floor to answer the door, she became dizzy and felt like she would pass out. An hour or 2 later when her friend came over, she became lightheaded once again when she stood up and walked a few steps. The patient is concerned because she had a cardiac stent placed about 4 weeks ago. The friend took her to [facility] quickly brought her here to the ER. She denies chest pain. She denies nausea or vomiting. As she is lying in bed , she denies any shortness of breath. She has no local doctor. Her past medical history is significant for cardiac stent placement, CAD, hypertension, GERD, CHF, hypothyroidism, malignant skin cancer. Her rn postpartum is Dr Brad Akers. Timing/Duration: gradual onset, worse Activities at Onset: none Severity of Dyspnea-Max: mild Severity of Dyspnea-Current: mild Possible Cause: no prior episodes Modifying Factors: Improves With: activity, exertion Associated Symptoms: lightheadedness, No cough, No chest pain/discomfort, No edema, No wheezing Allergies/Adverse Reactions: No Known Drug Allergies Allergy (Verified 12/15/16 14:00) Home Medications: Aspirin 81 mg PO DAILY 12/15/16 [History] Levothyroxine Sodium 50 Mcg [Synthroid 50 Mcg] 50 mcg PO DAILY 12/15/16 [ History] Metformin HCl 500 mg [Glucophage 500 MG] 500 mg PO BID 12/15/16 [History] Metoclopramide HCl 10 mg [Reglan 10 MG] 5 mg PO BID 12/15/16 [History] Nebivolol HCl [Bystolic] 5 mg PO DAILY 12/15/16 [History] Sucralfate 1 gm [Carafate 1 GM] 1 gm PO DAILY 12/15/16 [History] Calcium Carbonate/Vitamin D3 [Caltrate 600 + D Tablet] 1 each PO BID 09/08/18 [ History] Clopidogrel Bisulfate [Clopidogrel] 75 mg PO DAILY 09/08/18 [History] Cyanocobalamin (Vitamin B-12) [Vitamin B-12] 1,500 mcg PO DAILY 09/08/18 [ History] Furosemide 20 mg [Lasix 20 mg] 20 mg PO DAILY 09/08/18 [History] Hydrocodone/Acetaminophen [Hydrocodone-Acetamin 5-325 mg] 1 tab PO Q4-6HPRN PRN 09/08/18 [History] Iron 27 mg PO DAILY 09/08/18 [History] Magnesium Chloride [Slow-Mag] 143 mg PO DAILY 09/08/18 [History] Multivitamin [Multi-Vitamin Daily] 1 each PO DAILY 09/08/18 [History] PANTOPRAZOLE 40 mg Tablet [Protonix 40MG Tablet] 40 mg PO QAM 09/08/18 [ History] Prochlorperazine Maleate 10 mg [Compazine 10 mg] 10 mg PO UD PRN 09/08/18 [ History] Ranitidine HCl [Zantac] 300 mg PO DAILY 09/08/18 [History] Simvastatin 20 mg PO DAILY 09/08/18 [History] Spironolactone 25 mg PO DAILY 09/08/18 [History] Hx Tetanus, Diphtheria Vaccination/Date Given: No Hx Influenza Vaccination/Date Given: Yes Hx Pneumococcal Vaccination/Date Given: (unsure) - Review of Systems Constitutional: No Fever, No Chills Eyes: No Symptoms Ears, Nose, & Throat: No Symptoms Respiratory: Dyspnea on Exertion (VEGA) Cardiac: No Chest Pain, No Edema, No Syncope Abdominal/Gastrointestinal: No Abdominal Pain, No Nausea, No Vomiting, No Diarrhea Genitourinary Symptoms: No Dysuria Musculoskeletal: No Back Pain, No Neck Pain Skin: No Rash Neurological: No Dizziness, No Focal Weakness, No Sensory Changes Psychological: No Symptoms Endocrine: No Symptoms Hematologic/Lymphatic: No Symptoms Immunological/Allergic: No Symptoms All Other Systems: Reviewed and Negative - Past Medical History Pertinent Past Medical History: Yes Neurological History: No Pertinent History ENT History: Other Cardiac History: Angina, High Cholesterol, Hypertension, Myocardial Infarction ( [place]) Respiratory History: No Pertinent History Endocrine Medical History: Diabetes Type II, Hypothyroidism Musculoskeletal History: Arthritis, Other GI Medical History: GERD, Other History: No Pertinent History Psycho-Social History: Anxiety Female Reproductive Disorders: No Pertinent History Other Medical History: hx fx L wrist, L ankle, Esophageal cancer, wears glasses to read - Past Surgical History Past Surgical History: Yes Neuro Surgical History: No Pertinent History Cardiac: Cardiac Catheterization Respiratory: No Pertinent History Gastrointestinal: Cholecystectomy Genitourinary: No Pertinent History Musculoskeletal: No Pertinent History Female Surgical History: No Pertinent History Other Surgical History: skin cancer surgical removal L F/A, PEG placed, CVL port placed, endoscopic US - x3 times. radiation and chemotherapy, D/C - Social History Smoking Status: Never smoker Exposure to second hand smoke: No Drug Use: none Patient Lives Alone: No - Nursing Vital Signs Nursing Vital Signs: Initial Vital Signs Temperature 98.2 F 09/08/18 13:19 Pulse Rate 98 H 09/08/18 13:19 Respiratory Rate 16 09/08/18 13:19 Blood Pressure 119/66 09/08/18 13:19 O2 Sat by Pulse Oximetry 97 09/08/18 13:19 Pain Scale Pain Intensity 0 - Physical Exam General Appearance: no apparent distress, alert Eye Exam: PERRL/EOMI Neck Exam: normal inspection, supple Respiratory Exam: normal breath sounds, lungs clear, No crackles/rales, No rhonchi, No wheezing Cardiovascular/Chest Exam: normal heart sounds, regular rate/rhythm Abdominal/Gastrointestinal Exam: soft, No tenderness, No distention, No mass Rectal Exam: not done Extremity Exam: non-tender, normal range of motion, normal inspection, no calf tenderness, no pedal edema Neurologic Exam: alert, oriented x 3, cooperative, rf engineer II-XII nml as tested, sensation nml, No motor deficits Skin Exam: normal color, other (left wrist is bandaged from skin excision) Lymphatic Exam: No adenopathy SpO2 Interpretation: normal - Course EKG Interpreted by Me: RATE, Sinus Rhythm, NORMAL AXIS, NORMAL INTERVALS, NORMAL QRS, Q-wave (old inferior SC), Other (no change comp to EKG from .) - Radiology Exams Chest X-ray Interpretation: Reviewed by me, Teleradiologist Report (per Dr Leary), Negative (stable nonacute chest.) Ordered Tests: Active Orders 24 hr Category Date Time Status Parts And Service Manager STAT Care 09/08/18 14:08 Active Clean Catch Urine Specimen STAT Care 09/08/18 14:07 Active EKG-ER Only STAT Care 09/08/18 14:07 Active IV Insertion STAT Care 09/08/18 14:07 Active Orthostatic Vital Signs STAT Care 09/08/18 14:09 Active Pulse Oximetry (ED) STAT Care 09/08/18 14:07 Active CHEST 2 VIEWS (PA AND LAT) Stat Exams 09/08/18 14:08 Completed CBC W DIFF Stat Lab 09/08/18 14:07 Completed CMP Stat Lab 09/08/18 14:15 Completed CULTURE,URINE Stat Lab 09/08/18 14:31 Received D-DIMER QUANTITATION Stat Lab 09/08/18 14:15 Completed NT PRO BNP Stat Lab 09/08/18 14:15 Completed PROTIME WITH INR Stat Lab 09/08/18 14:15 Completed TROPONIN Q3H Lab 09/08/18 14:15 Completed TROPONIN Q3H Lab 09/08/18 17:15 Ordered TROPONIN Q3H Lab 09/08/18 20:15 Ordered TROPONIN Q3H Lab 09/08/18 23:15 Ordered TROPONIN Q3H Lab 09/09/18 02:15 Ordered UA W/RFX UR CULTURE Stat Lab 09/08/18 14:31 Completed Medication Summary Generic Name Dose Route Start Last Admin Trade Name Freq PRN Reason Stop Dose Admin Sodium Chloride 1,000 mls @ 100 mls/hr 09/08/18 14:15 09/08/18 15:07 Sodium Chloride 0.9% 1000 Ml IV 10/08/18 14:14 100 mls/hr .Q10H KHARI Administration Lab/Rad Data: Laboratory Result Diagrams 09/08/18 14:07 09/08/18 14:15 Laboratory Results 09/08/18 09/08/18 09/08/18 Range/Units 14:31 14:16 14:15 WBC (4.0-10.5) K/mm3 RBC (4.1-5.4) M/mm3 Hgb (12.0-16.0) gm/dl Hct (35-47) % MCV (78-100) fl MCH (26-32) pg MCHC (32-36) g/dl RDW (11.5-14.0) % Plt Count (150-450) K/mm3 MPV (6-9.5) fl Gran % (36.0-66.0) % Eos # (Auto) (0-0.5) Absolute Lymphs (auto) (1.0-4.6) Absolute Monos (auto) (0.0-1.3) Lymphocytes % (24.0-44.0) % Monocytes % (0.0-12.0) % Eosinophils % (0.00-5.0) % Basophils % (0.0-0.4) % Absolute Granulocytes (1.4-6.9) Basophils # (0-0.4) PT (9.95-12.35) SECONDS INR (0.8-3.0) D-Dimer (215-500) ng/mL Sodium (137-145) mmol/L Potassium (3.5-5.1) mmol/L Chloride (98-107) mmol/L Carbon Dioxide (22-30) mmol/L Anion Gap (5-15) MEQ/L BUN (7-17) mg/dL Creatinine (0.52-1.04) mg/dL Estimated GFR ML/MIN Glucose (74-106) mg/dL Calcium (8.4-10.2) mg/dL Total Bilirubin (0.2-1.3) mg/dL AST (14-36) U/L ALT (0-35) U/L Alkaline Phosphatase (38-126) U/L Troponin I < 0.012 (0.000-0.034) ng/mL NT-Pro-B Natriuret Pep (0-1800) pg/mL Serum Total Protein (6.3-8.2) g/dL Albumin (3.5-5.0) g/dL Urine Color YELLOW (YELLOW) Urine Appearance SLIGHTLY CLOUDY (CLEAR) Urine pH 6.0 (5-6) Ur Specific [place] 1.012 (1.005-1.025) Urine Protein NEGATIVE (Negative) Urine Ketones NEGATIVE (NEGATIVE) Urine Blood NEGATIVE (0-5) [place]/ul Urine Nitrite NEGATIVE (NEGATIVE) Urine Bilirubin NEGATIVE (NEGATIVE) Urine Urobilinogen NEGATIVE (0-1) mg/dL Ur Leukocyte Esterase LARGE (NEGATIVE) Urine WBC (Auto) 11-15 (0-5) /HPF Urine RBC (Auto) 3-5 (0-2) /HPF U Epithel Cells (Auto) RARE (FEW) /HPF Urine Bacteria (Auto) RARE (NEGATIVE) /HPF Urine Mucus (Auto) SLIGHT (NEGATIVE) /HPF Urine Culture Reflexed YES (NO) Urine Glucose NEGATIVE (NEGATIVE) mg/dL Influenza Type A Ag NEGATIVE (NEGATIVE) Influenza Type B Ag NEGATIVE (NEGATIVE) RSV (PCR) NEGATIVE (Negative) 09/08/18 09/08/18 09/08/18 Range/Units 14:15 14:15 14:07 WBC 13.5 H (4.0-10.5) K/mm3 RBC 5.43 H (4.1-5.4) M/mm3 Hgb 12.9 (12.0-16.0) gm/dl Hct 40.6 (35-47) % MCV 74.8 L (78-100) fl MCH 23.7 L (26-32) pg MCHC 31.8 L (32-36) g/dl RDW 15.9 H (11.5-14.0) % Plt Count 297 (150-450) K/mm3 MPV 10.2 H (6-9.5) fl Gran % 74.6 H (36.0-66.0) % Eos # (Auto) 0.26 (0-0.5) Absolute Lymphs (auto) 1.99 (1.0-4.6) Absolute Monos (auto) 1.13 (0.0-1.3) Lymphocytes % 14.8 L (24.0-44.0) % Monocytes % 8.4 (0.0-12.0) % Eosinophils % 1.9 (0.00-5.0) % Basophils % 0.3 (0.0-0.4) % Absolute Granulocytes 10.03 H (1.4-6.9) Basophils # 0.04 (0-0.4) PT 11.3 (9.95-12.35) SECONDS INR 0.97 (0.8-3.0) D-Dimer 465 (215-500) ng/mL Sodium 129 L (137-145) mmol/L Potassium 5.0 (3.5-5.1) mmol/L Chloride 88 L (98-107) mmol/L Carbon Dioxide 26 (22-30) mmol/L Anion Gap 20.5 H (5-15) MEQ/L BUN 29 H (7-17) mg/dL Creatinine 1.36 H (0.52-1.04) mg/dL Estimated GFR 40.0 ML/MIN Glucose 221 H (74-106) mg/dL Calcium 10.2 (8.4-10.2) mg/dL Total Bilirubin 0.50 (0.2-1.3) mg/dL AST 27 (14-36) U/L ALT 18 (0-35) U/L Alkaline Phosphatase 74 (38-126) U/L Troponin I (0.000-0.034) ng/mL NT-Pro-B Natriuret Pep 254 (0-1800) pg/mL Serum Total Protein 8.1 (6.3-8.2) g/dL Albumin 5.1 H (3.5-5.0) g/dL Urine Color (YELLOW) Urine Appearance (CLEAR) Urine pH (5-6) Ur Specific [place] (1.005-1.025) Urine Protein (Negative) Urine Ketones (NEGATIVE) Urine Blood (0-5) [place]/ul Urine Nitrite (NEGATIVE) Urine Bilirubin (NEGATIVE) Urine Urobilinogen (0-1) mg/dL Ur Leukocyte Esterase (NEGATIVE) Urine WBC (Auto) (0-5) /HPF Urine RBC (Auto) (0-2) /HPF U Epithel Cells (Auto) (FEW) /HPF Urine Bacteria (Auto) (NEGATIVE) /HPF Urine Mucus (Auto) (NEGATIVE) /HPF Urine Culture Reflexed (NO) Urine Glucose (NEGATIVE) mg/dL Influenza Type A Ag (NEGATIVE) Influenza Type B Ag (NEGATIVE) RSV (PCR) (Negative) - Progress Progress: improved Air Movement: good Progress Note: 09/08/18 16:12 Respiratory therapy walked the patient in the hallway with a portable O2 saturation monitor. The patient never once complaining of feeling short of breath or feeling like she would pass out. Her O2 saturation did drop down to 90%. The patient wants to go home. Blood Culture(s) Obtained: No Antibiotics given: No Counseled pt/family regarding: lab results, need for follow-up, rad results - Departure Time of Disposition: 16:13 Departure Disposition: Home Clinical Impression: Near syncope, UTI (urinary tract infection) Condition: Stable Critical Care Time: No Referrals: CHANI AKERS [Primary Care Provider] - Additional Instructions: You had a couple of years fainting spells at home today. Your heart checked out just fine in the ER including the laboratory results and the EKG. You felt fine when you were walk up and down the [place] with a oxygen saturation probe on your finger. You have a mild UTI. Take Macrobid 100 mg 2 times a day for 7 days. Follow-up with your primary medical doctor on Wednesday. Prescriptions: Nitrofurantoin Macro 100 mg [Macrobid 100MG Capsule] 100 mg PO BID #14 capsule
[2018-09-08 14:15] LABS: BASOPHIL % 0.3 % (0.0-0.4); Basophil (Absolute #) 0.04 (0-0.4); Eosinophil % 1.9 % (0.00-5.0); Eosinophil (Absolute #) 0.26 (0-0.5); Granulocytes % 74.6 % (36.0-66.0); Hematocrit 40.6 % (35-47); Hemoglobin 12.9 gm/dl (12.0-16.0); Lymphocyte (Absolute #) 1.99 (1.0-4.6); Lymphocytes % 14.8 % (24.0-44.0); Mean Cell Volume 74.8 fl (78-100); Mean Corpuscular Hemoglobin 23.7 pg (26-32); Mean Corpuscular Hgb Concent. 31.8 g/dl (32-36); Mean Platelet Volume 10.2 fl (6-9.5); Monocyte (Absolute #) 1.13 (0.0-1.3); Monocytes % 8.4 % (0.0-12.0); Platelet Count 297 K/mm3 (150-450); Red Blood Count 5.43 M/mm3 (4.1-5.4); Red Cell Distribution Width 15.9 % (11.5-14.0); White Blood Count 13.5 K/mm3 (4.0-10.5)
[2018-09-08] MEDS ORDERED: Sodium Chloride 0.9% 1000 ML 1,000 ML IV SCH (14:15)
[2018-09-08 14:16] LABS: INR 0.97 (0.8-3.0); PROTIME 11.3 SECONDS (9.95-12.35)
[2018-09-08 14:29] LABS: ALBUMIN 5.1 g/dL (3.5-5.0); ANION GAP 20.5 MEQ/L (5-15); BILIRUBIN,TOTAL 0.5 mg/dL (0.2-1.3); Calcium 10.2 mg/dL (8.4-10.2); Creatinine 1 1.36 mg/dL (0.52-1.04); Total Protein 8.1 g/dL (6.3-8.2)
[2018-09-08 14:42] VITALS: O2SAT 98
--- NOTE | 2018-09-08 14:42 | XRAY ---
Indication: Short of breath. Comparison: June 18, 2018. PA/lateral chest remains hyperinflated and clear again with incidental tiny calcified granulomas. Heart and mediastinal structures within normal limits again with left Port-A-Cath. Bony thorax intact again with mild osteopenia, degenerative changes, and T7-T10 kyphoplasty. Impression: Stable nonacute hyperinflated chest with chronic features.
[2018-09-08 15:02] LABS: INFLUENZA A NEGATIVE (NEGATIVE); INFLUENZA B NEGATIVE (NEGATIVE); RESPIRATORY SYNCTIAL VIRUS NEGATIVE (Negative)
[2018-09-08] MEDS ORDERED: Sodium Chloride 0.9% 1000 ML 1,000 ML ONE (15:04)
[2018-09-08 15:15] VITALS: BP 121/72
[2018-09-08 15:15] LABS: Appearance SLIGHTLY CLOUDY (CLEAR); Bacteria RARE /HPF (NEGATIVE); Bilirubin NEGATIVE (NEGATIVE); Blood NEGATIVE Ery/ul (0-5); Epithelial Cells RARE /HPF (FEW); Glucose NEGATIVE (NEGATIVE); Ketones NEGATIVE (NEGATIVE); Leukocyte Esterase LARGE (NEGATIVE); Mucus SLIGHT /HPF (NEGATIVE); Nitrite NEGATIVE (NEGATIVE); Protein,Urine Dip NEGATIVE (Negative); Specific Gravity 1.012 (1.005-1.025); Urobilinogen NEGATIVE mg/dL (0-1)
[2018-09-08 16:15] VITALS: PULSE 91
== END 2018-09-08 16:28 | disposition home or self-care (01) ==
LOC: ED 13:16
DX: R55 Syncope and collapse (principal); N39.0 Urinary tract infection, site not specified; R42 Dizziness and giddiness; R06.02 Shortness of breath; I10 Essential (primary) hypertension; E11.9 Type 2 diabetes mellitus without complications; Z98.890 Other specified postprocedural states; Z79.899 Other long term (current) drug therapy; Z79.84 Long term (current) use of oral hypoglycemic drugs
CPT/HCPCS: 36000; 36415; 71046; 80053; 81001; 83880; 84484; 85025; 85379; 85610; 87077; 87086; 87186; 87631; 93005; 93041; 96360; 99284

== ENCOUNTER 2018-09-15 13:16 | Emergency (ER) | payer MEDICARE ==
--- NOTE | 2018-09-15 13:45 | ERPHSYRPT ---
- History of Present Illness Time Seen by Provider: 09/15/18 13:40 Patient Subjective Stated Complaint: pt here for possible infection to left arm after having cancer removed. Triage Nursing Assessment: pt alert, walked in, resp easy, skin w/dp. pt has fist size open area to lower left arm with has redness and swelling around site . was seen yesterday and placedc on antibotic Physician History: 77 y/o white female presents with superficial redness and tenderness of left arm. present and worsening over 2 months post excision of melanoma at this site. per pt and her friend. pt is a poor historian. pt had been using effudex for 4 weeks then told stop. since that time pt has been using aquaphor topically. pt was seen at urgent care yeserday and given an rx for augmentin. pts supervisor industrial garment sent pt to ED for evaluation/tx Timing/Duration: week(s) (over 8 weeks) Quality: burning Severity: moderate Location: extremities (left forearm) Possible Causes: no cause identified Associated Symptoms: change in skin texture, No difficulty breathing Allergies/Adverse Reactions: No Known Drug Allergies Allergy (Verified 09/15/18 13:42) Home Medications: Aspirin 81 mg PO DAILY 12/15/16 [History] Levothyroxine Sodium 50 Mcg [Synthroid 50 Mcg] 50 mcg PO DAILY 12/15/16 [ History] Metformin HCl 500 mg [Glucophage 500 MG] 500 mg PO BID 12/15/16 [History] Metoclopramide HCl 10 mg [Reglan 10 MG] 5 mg PO BID 12/15/16 [History] Nebivolol HCl [Bystolic] 5 mg PO DAILY 12/15/16 [History] Sucralfate 1 gm [Carafate 1 GM] 1 gm PO DAILY 12/15/16 [History] Calcium Carbonate/Vitamin D3 [Caltrate 600 + D Tablet] 1 each PO BID 09/08/18 [ History] Clopidogrel Bisulfate [Clopidogrel] 75 mg PO DAILY 09/08/18 [History] Cyanocobalamin (Vitamin B-12) [Vitamin B-12] 1,500 mcg PO DAILY 09/08/18 [ History] Furosemide 20 mg [Lasix 20 mg] 20 mg PO DAILY 09/08/18 [History] Hydrocodone/Acetaminophen [Hydrocodone-Acetamin 5-325 mg] 1 tab PO Q4-6HPRN PRN 09/08/18 [History] Iron 27 mg PO DAILY 09/08/18 [History] Magnesium Chloride [Slow-Mag] 143 mg PO DAILY 09/08/18 [History] Multivitamin [Multi-Vitamin Daily] 1 each PO DAILY 09/08/18 [History] PANTOPRAZOLE 40 mg Tablet [Protonix 40MG Tablet] 40 mg PO QAM 09/08/18 [ History] Prochlorperazine Maleate 10 mg [Compazine 10 mg] 10 mg PO UD PRN 09/08/18 [ History] Ranitidine HCl [Zantac] 300 mg PO DAILY 09/08/18 [History] Simvastatin 20 mg PO DAILY 09/08/18 [History] Spironolactone 25 mg PO DAILY 09/08/18 [History] Hx Tetanus, Diphtheria Vaccination/Date Given: Yes Hx Influenza Vaccination/Date Given: No Hx Pneumococcal Vaccination/Date Given: No Immunizations Up to Date: Yes - Review of Systems Constitutional: No Symptoms Eyes: No Symptoms Ears, Nose, & Throat: No Symptoms Respiratory: No Symptoms Cardiac: No Symptoms Abdominal/Gastrointestinal: No Symptoms Genitourinary Symptoms: No Symptoms Musculoskeletal: No Symptoms Skin: Other (left forearm with oval shaped localized redness.) - Past Medical History Pertinent Past Medical History: Yes Neurological History: No Pertinent History ENT History: Other Cardiac History: Angina, High Cholesterol, Hypertension, Myocardial Infarction ( [place]) Respiratory History: No Pertinent History Endocrine Medical History: Diabetes Type II, Hypothyroidism Musculoskeletal History: Arthritis, Other GI Medical History: GERD, Other History: No Pertinent History Psycho-Social History: Anxiety Female Reproductive Disorders: No Pertinent History Other Medical History: hx fx L wrist, L ankle, Esophageal cancer, wears glasses to read, melanoma of left arm - Past Surgical History Past Surgical History: Yes Neuro Surgical History: No Pertinent History Cardiac: Cardiac Catheterization, Cardiac Stent Respiratory: No Pertinent History Gastrointestinal: Cholecystectomy Genitourinary: No Pertinent History Musculoskeletal: No Pertinent History Female Surgical History: No Pertinent History Other Surgical History: skin cancer surgical removal L F/A, PEG placed, CVL port placed, endoscopic US - x3 times. radiation and chemotherapy, D/C - Social History Smoking Status: Never smoker Exposure to second hand smoke: No Drug Use: none Patient Lives Alone: Yes - Female History Hx Last Menstrual Period: post Hx Now: No - Nursing Vital Signs Nursing Vital Signs: Initial Vital Signs Temperature 97.7 F 09/15/18 13:24 Pulse Rate 110 H 09/15/18 13:24 Respiratory Rate 20 09/15/18 13:24 Blood Pressure 155/89 09/15/18 13:24 O2 Sat by Pulse Oximetry 94 L 09/15/18 13:24 Pain Scale Pain Intensity 0 - Physical Exam General Appearance: no apparent distress, alert, anxiety Eye Exam: PERRL/EOMI Ears, Nose, Throat Exam: normal ENT inspection, moist mucous membranes Neck Exam: normal inspection, non-tender, supple, full range of motion Respiratory Exam: normal breath sounds, lungs clear, airway intact, No chest tenderness, No respiratory distress Cardiovascular Exam: regular rate/rhythm, normal heart sounds, normal peripheral pulses Gastrointestinal/Abdomen Exam: soft, normal bowel sounds, No tenderness, No guarding, No rebound Pelvic Exam: not done Rectal Exam: not done Back Exam: normal inspection, normal range of motion, No CVA tenderness, No vertebral tenderness Extremity Exam: normal inspection, normal range of motion, pelvis stable Neurologic Exam: alert, oriented x 3, cooperative, mill tender second operator II-XII nml as tested Skin Exam: other ([id number] superficial,localized,vertical oriented area of scalding,green layer, no odor) Lymphatic Exam: No adenopathy SpO2 Interpretation: borderline oxygenation SpO2: 94 Oxygen Delivery: Room Air - Course Nursing assessment & vital signs reviewed: Yes Ordered Tests: Active Orders 24 hr Category Date Time Status CULTURE,WOUND Stat Lab 09/15/18 14:02 Ordered Medication Summary Discontinued Medications Generic Name Dose Route Start Last Admin Trade Name Freq PRN Reason Stop Dose Admin Ceftazidime 1 g 09/15/18 14:03 Fortaz/Tazicef 1 Gm IM 09/15/18 14:04 STAT ONE - Progress Progress: unchanged Counseled pt/family regarding: diagnosis, need for follow-up - Departure Time of Disposition: 14:24 Departure Disposition: Home Clinical Impression: Localized bacterial infection of skin Condition: Stable Critical Care Time: No Referrals: DOCTOR,NO FAMILY [Primary Care Provider] - Additional Instructions: stop your augmentin. stop all topical agents. scrub area 2 times daily with soap and water. then cover with nonstick gauze and wrap with kerlex. Keep your appointment with your oncologist scheduled on WednesdaySep 19. Prescriptions: Ciprofloxacin [Cipro 500 MG] 500 mg PO BID #14 tablet
[2018-09-15] MEDS ORDERED: CEFTAZIDIME 1 GM IM ONE (14:03)
[2018-09-15 15:01] VITALS: BP 104/68; PULSE 78; O2SAT 97
== END 2018-09-15 15:01 | disposition home or self-care (01) ==
LOC: ED 13:16
DX: A49.9 Bacterial infection, unspecified (principal); L08.9 Local infection of the skin and subcutaneous tissue, unspecified; F41.9 Anxiety disorder, unspecified; E78.00 Pure hypercholesterolemia, unspecified; I10 Essential (primary) hypertension; E11.9 Type 2 diabetes mellitus without complications; Z79.4 Long term (current) use of insulin; E03.9 Hypothyroidism, unspecified; M19.90 Unspecified osteoarthritis, unspecified site; K21.9 Gastro-esophageal reflux disease without esophagitis; Z85.01 Personal history of malignant neoplasm of esophagus; Z79.899 Other long term (current) drug therapy; I25.2 Old myocardial infarction
CPT/HCPCS: 87070; 96372; 99284; J0713

== ENCOUNTER 2018-09-26 11:27 | Emergency (ER) | payer MEDICARE ==
[2018-09-26 12:13] VITALS: O2SAT 98
[2018-09-26] MEDS ORDERED: solu-MEDROL 125 MG IV ONE (12:37)
[2018-09-26] MEDS ORDERED: BENADRYL 50 MG/ML IV ONE (12:37)
--- NOTE | 2018-09-26 12:42 | ERPHSYRPT ---
- History of Present Illness Time Seen by Provider: 09/26/18 12:31 Source: patient Exam Limitations: no limitations Patient Subjective Stated Complaint: Pt states "I have skin cancer and I started this new topical medication on wednesday. I started to have hives that night and they are just getting worse. I called my Dr. Rosa, oncologist , and they said there is nothing in there to cause the hives." Triage Nursing Assessment: pt alert and oriented X 3, skin pwd. pt ambulates with an upright steady gait, able to speak in clear full sentences Pt lung soudns are clear equal bilat, hives noted to upper chest, back, abdomen, arms. Physician History: 77-year-old white female with history of melanoma her left forearm was receiving steroid cream to her left forearm arrives with complaint of hives on her back upper chest and arms and abdomen symptoms for several days worse over the past 12 hours she denies any shortness of breath no nausea no vomiting. Past medical history includes diabetes, hypothyroidism, angina, hyperlipidemia, high blood pressure, myocardial infarction, GERD, arthritis, anxiety, fracture left wrist ankle, melanoma left arm, Past surgical history includes skin cancer removed left forearm, PEG tube placed central venous port placed endoscopic surgery 2 Timing/Duration: day(s) (symptoms for several days) Severity: moderate Modifying Factors: Improves With: other (patient with triamcinolone cream on left forearm recently) Associated Symptoms: rash (hives on back upper chest abdomen forearms), No nausea, No vomiting, No abdominal pain, No shortness of breath, No heartburn, No diaphoresis, No cough, No chills, No chest pain, No fever, No headaches, No loss of appetite, No malaise, No syncope, No seizure, No weakness Allergies/Adverse Reactions: No Known Drug Allergies Allergy (Verified 09/15/18 13:42) Home Medications: Aspirin 81 mg PO DAILY 12/15/16 [History] Levothyroxine Sodium 50 Mcg [Synthroid 50 Mcg] 50 mcg PO DAILY 12/15/16 [ History] Metformin HCl 500 mg [Glucophage 500 MG] 500 mg PO BID 12/15/16 [History] Metoclopramide HCl 10 mg [Reglan 10 MG] 5 mg PO BID 12/15/16 [History] Nebivolol HCl [Bystolic] 5 mg PO DAILY 12/15/16 [History] Sucralfate 1 gm [Carafate 1 GM] 1 gm PO DAILY 12/15/16 [History] Calcium Carbonate/Vitamin D3 [Caltrate 600 + D Tablet] 1 each PO BID 09/08/18 [ History] Clopidogrel Bisulfate [Clopidogrel] 75 mg PO DAILY 09/08/18 [History] Cyanocobalamin (Vitamin B-12) [Vitamin B-12] 1,500 mcg PO DAILY 09/08/18 [ History] Furosemide 20 mg [Lasix 20 mg] 20 mg PO DAILY 09/08/18 [History] Hydrocodone/Acetaminophen [Hydrocodone-Acetamin 5-325 mg] 1 tab PO Q4-6HPRN PRN 09/08/18 [History] Iron 27 mg PO DAILY 09/08/18 [History] Magnesium Chloride [Slow-Mag] 143 mg PO DAILY 09/08/18 [History] Multivitamin [Multi-Vitamin Daily] 1 each PO DAILY 09/08/18 [History] PANTOPRAZOLE 40 mg Tablet [Protonix 40MG Tablet] 40 mg PO QAM 09/08/18 [ History] Prochlorperazine Maleate 10 mg [Compazine 10 mg] 10 mg PO UD PRN 09/08/18 [ History] Ranitidine HCl [Zantac] 300 mg PO DAILY 09/08/18 [History] Simvastatin 20 mg PO DAILY 09/08/18 [History] Spironolactone 25 mg PO DAILY 09/08/18 [History] Hx Tetanus, Diphtheria Vaccination/Date Given: No Hx Influenza Vaccination/Date Given: No Hx Pneumococcal Vaccination/Date Given: No Immunizations Up to Date: Yes - Review of Systems Constitutional: No Fever, No Chills Eyes: No Symptoms Respiratory: No Cough, No Dyspnea Cardiac: No Chest Pain, No Edema, No Syncope Abdominal/Gastrointestinal: No Abdominal Pain, No Nausea, No Vomiting, No Diarrhea Genitourinary Symptoms: No Dysuria Musculoskeletal: No Back Pain, No Neck Pain Skin: Rash (hives on back upper chest forearm abdomen) Neurological: No Dizziness, No Focal Weakness, No Sensory Changes Psychological: No Symptoms Endocrine: No Symptoms All Other Systems: Reviewed and Negative - Past Medical History Pertinent Past Medical History: Yes Neurological History: No Pertinent History ENT History: Other Cardiac History: Angina, High Cholesterol, Hypertension, Myocardial Infarction ( [place]) Respiratory History: No Pertinent History Endocrine Medical History: Diabetes Type II, Hypothyroidism Musculoskeletal History: Arthritis, Other GI Medical History: GERD, Other History: No Pertinent History Psycho-Social History: Anxiety Female Reproductive Disorders: No Pertinent History Other Medical History: hx fx L wrist, L ankle, Esophageal cancer, wears glasses to read, melanoma of left arm - Past Surgical History Past Surgical History: Yes Neuro Surgical History: No Pertinent History Cardiac: Cardiac Catheterization, Cardiac Stent Respiratory: No Pertinent History Gastrointestinal: Cholecystectomy Genitourinary: No Pertinent History Musculoskeletal: No Pertinent History Female Surgical History: No Pertinent History Other Surgical History: skin cancer surgical removal L F/A, PEG placed, CVL port placed, endoscopic US - x3 times. radiation and chemotherapy, D/C - Social History Smoking Status: Never smoker Exposure to second hand smoke: Yes Drug Use: none Patient Lives Alone: Yes - Female History Hx Now: No - Nursing Vital Signs Nursing Vital Signs: Initial Vital Signs Temperature 98.7 F 09/26/18 12:05 Pulse Rate 88 09/26/18 12:05 Respiratory Rate 18 09/26/18 12:05 Blood Pressure 168/86 09/26/18 12:05 O2 Sat by Pulse Oximetry 98 09/26/18 12:05 Pain Scale Pain Intensity 0 - Physical Exam General Appearance: no apparent distress, alert Eye Exam: PERRL/EOMI, eyes nml inspection Ears, Nose, Throat Exam: normal ENT inspection, TMs normal, pharynx normal, moist mucous membranes Neck Exam: normal inspection, non-tender, supple, full range of motion Respiratory Exam: normal breath sounds, lungs clear, No respiratory distress Cardiovascular Exam: regular rate/rhythm, normal heart sounds, normal peripheral pulses, capillary refill <2 sec Gastrointestinal/Abdomen Exam: soft, normal bowel sounds, No tenderness, No mass Back Exam: normal inspection, normal range of motion, No CVA tenderness, No vertebral tenderness Extremity Exam: normal inspection, normal range of motion, pelvis stable Neurologic Exam: alert, oriented x 3, cooperative, hand cutter II-XII nml as tested, normal mood/affect, nml cerebellar function, nml station & gait, sensation nml, No motor deficits Skin Exam: other (Erythematous raised areas some approximately 2 cm in diameter on pat several small less than 1 cm areas less than 1 cm areas on patient's arms and abdomen) Lymphatic Exam: No adenopathy SpO2 Interpretation: normal (98%) SpO2: 98 - Course Nursing assessment & vital signs reviewed: Yes Ordered Tests: Active Orders 24 hr Category Date Time Status IV Insertion STAT Care 09/26/18 12:37 Active CBC W DIFF Stat Lab 09/26/18 12:45 Completed CMP Stat Lab 09/26/18 12:45 Completed Medication Summary Generic Name Dose Route Start Last Admin Trade Name Freq PRN Reason Stop Dose Admin Sodium Chloride 1,000 mls @ 100 mls/hr 09/26/18 12:45 09/26/18 13:09 Sodium Chloride 0.9% 1000 Ml IV 10/26/18 12:44 100 mls/hr .Q10H KHARI Administration Discontinued Medications Generic Name Dose Route Start Last Admin Trade Name Freq PRN Reason Stop Dose Admin Diphenhydramine HCl 25 mg 09/26/18 12:37 09/26/18 13:08 Benadryl 50 Mg/Ml IV 09/26/18 12:38 25 mg STAT ONE Administration Diphenhydramine HCl Confirm 09/26/18 13:01 Benadryl 50 Mg/Ml Administered 09/26/18 13:02 Dose 50 mg .ROUTE .STK-MED ONE Methylprednisolone Sodium Succinate 125 mg 09/26/18 12:37 09/26/18 13:08 Solu-Medrol 125 Mg IV 09/26/18 12:38 125 mg STAT ONE Administration Methylprednisolone Sodium Succinate Confirm 09/26/18 13:01 Solu-Medrol 125 Mg Administered 09/26/18 13:02 Dose 125 mg .ROUTE .STK-MED ONE Lab/Rad Data: Laboratory Result Diagrams 09/26/18 12:45 09/26/18 12:45 Laboratory Results 09/26/18 09/26/18 Range/Units 12:45 12:45 WBC 9.1 (4.0-10.5) K/mm3 RBC 5.00 (4.1-5.4) M/mm3 Hgb 11.9 L (12.0-16.0) gm/dl Hct 37.6 (35-47) % MCV 75.2 L (78-100) fl MCH 23.8 L (26-32) pg MCHC 31.6 L (32-36) g/dl RDW 16.6 H (11.5-14.0) % Plt Count 265 (150-450) K/mm3 MPV 9.3 (6-9.5) fl Gran % 73.3 H (36.0-66.0) % Eos # (Auto) 0.57 H (0-0.5) Absolute Lymphs (auto) 1.09 (1.0-4.6) Absolute Monos (auto) 0.75 (0.0-1.3) Lymphocytes % 11.9 L (24.0-44.0) % Monocytes % 8.2 (0.0-12.0) % Eosinophils % 6.2 H (0.00-5.0) % Basophils % 0.4 (0.0-0.4) % Absolute Granulocytes 6.69 (1.4-6.9) Basophils # 0.04 (0-0.4) Sodium 128 L (137-145) mmol/L Potassium 4.8 (3.5-5.1) mmol/L Chloride 86 L (98-107) mmol/L Carbon Dioxide 30 (22-30) mmol/L Anion Gap 16.5 H (5-15) MEQ/L BUN 26 H (7-17) mg/dL Creatinine 1.33 H (0.52-1.04) mg/dL Estimated GFR 41.0 ML/MIN Glucose 291 H (74-106) mg/dL Calcium 10.1 (8.4-10.2) mg/dL Total Bilirubin 0.40 (0.2-1.3) mg/dL AST 19 (14-36) U/L ALT 15 (0-35) U/L Alkaline Phosphatase 58 (38-126) U/L Serum Total Protein 6.7 (6.3-8.2) g/dL Albumin 4.2 (3.5-5.0) g/dL - Progress Progress: improved Progress Note: 09/26/18 13:38 77-year-old white female arrives with complaint of a raised erythematous rash for 3 days. Patient is given Solu-Medrol 125 mg and Benadryl 25 mg IV also given normal saline at 100 mL per hour. Patient is feeling better is noted that blood patient's glucose is 291. Will defer all home dose parenteral corticosteroids but Will go ahead and have patient take Benadryl 25-50 mg orally every 6 hours. Patient's family will watch patient's blood sugars. She is to follow-up with her family doctor. - Departure Time of Disposition: 13:39 Departure Disposition: Home Clinical Impression: Rash Allergic reaction Qualifiers: Encounter type: sequela Qualified Code(s): T78.40XS - Allergy, unspecified, sequela Condition: Fair Critical Care Time: No Referrals: DOCTOR,NO FAMILY [Primary Care Provider] - Additional Instructions: Return home. Plenty of fluids. Benadryl 25-50 mg orally every 6 hours for 2-3 days hold for somnolence. Follow-up with your family doctor. Return for acute distress or for severe symptoms. Monitor your blood sugars they will go up with the Solu-Medrol injection but should come down please follow up with your family doctor or return if problems.
[2018-09-26] MEDS ORDERED: Sodium Chloride 0.9% 1000 ML 1,000 ML IV SCH (12:45)
[2018-09-26 12:56] LABS: BASOPHIL % 0.4 % (0.0-0.4); Basophil (Absolute #) 0.04 (0-0.4); Eosinophil % 6.2 % (0.00-5.0); Eosinophil (Absolute #) 0.57 (0-0.5); Granulocyte Absolute (ANC) 6.69 (1.4-6.9); Granulocytes % 73.3 % (36.0-66.0); Hematocrit 37.6 % (35-47); Hemoglobin 11.9 gm/dl (12.0-16.0); Lymphocyte (Absolute #) 1.09 (1.0-4.6); Lymphocytes % 11.9 % (24.0-44.0); Mean Cell Volume 75.2 fl (78-100); Mean Corpuscular Hemoglobin 23.8 pg (26-32); Mean Corpuscular Hgb Concent. 31.6 g/dl (32-36); Mean Platelet Volume 9.3 fl (6-9.5); Monocyte (Absolute #) 0.75 (0.0-1.3); Monocytes % 8.2 % (0.0-12.0); Platelet Count 265 K/mm3 (150-450); Red Cell Distribution Width 16.6 % (11.5-14.0); White Blood Count 9.1 K/mm3 (4.0-10.5)
[2018-09-26] MEDS ORDERED: BENADRYL 50 MG/ML ONE (13:01)
[2018-09-26] MEDS ORDERED: solu-MEDROL 125 MG ONE (13:01)
[2018-09-26] MEDS ORDERED: Sodium Chloride 0.9% 1000 ML 1,000 ML ONE (13:01)
[2018-09-26 13:32] LABS: ALBUMIN 4.2 g/dL (3.5-5.0); ANION GAP 16.5 MEQ/L (5-15); BILIRUBIN,TOTAL 0.4 mg/dL (0.2-1.3); Calcium 10.1 mg/dL (8.4-10.2); Creatinine 1 1.33 mg/dL (0.52-1.04); Potassium 4.8 mmol/L (3.5-5.1); Total Protein 6.7 g/dL (6.3-8.2)
[2018-09-26 14:19] VITALS: BP 156/84; PULSE 84
== END 2018-09-26 14:29 | disposition home or self-care (01) ==
LOC: ED 11:27
DX: R21 Rash and other nonspecific skin eruption (principal); I10 Essential (primary) hypertension; E78.00 Pure hypercholesterolemia, unspecified; I25.2 Old myocardial infarction; E11.9 Type 2 diabetes mellitus without complications; E03.9 Hypothyroidism, unspecified; M19.90 Unspecified osteoarthritis, unspecified site; K21.9 Gastro-esophageal reflux disease without esophagitis; F43.9 Reaction to severe stress, unspecified; Z85.01 Personal history of malignant neoplasm of esophagus; Z85.820 Personal history of malignant melanoma of skin; Z79.4 Long term (current) use of insulin; E78.5 Hyperlipidemia, unspecified
CPT/HCPCS: 36000; 36415; 80053; 85025; 96360; 96374; 96375; 99284; J1200; J2930

== ENCOUNTER 2019-06-16 15:17 | Emergency (ER) | payer MEDICARE | END 2019-06-16 15:52 | disposition home or self-care (01) | LOC: ED 15:17 | DX: Z45.2 Encounter for adjustment and management of vascular access device (principal) | CPT/HCPCS: 99281; J1642 ==

== ENCOUNTER 2020-04-03 11:14 | Observation (INO) | payer MEDICARE ==
[2020-04-03] MEDS ORDERED: Zofran 4 MG/2 ML VIAL IV ONE (11:50)
[2020-04-03] MEDS ORDERED: BABY ASPIRIN 81 MG CHEW PO ONE (11:50)
[2020-04-03] MEDS ORDERED: GI COCKTAIL 45 ML (Maalox/Lidocaine) PO ONE (11:51)
[2020-04-03] MEDS ORDERED: NITRO-BID 2% UD PACKETS TOP ONE (11:52)
[2020-04-03] MEDS ORDERED: NITRO-BID 2% UD PACKETS ONE (12:02)
[2020-04-03] MEDS ORDERED: Zofran 4 MG/2 ML VIAL ONE (12:02)
[2020-04-03] MEDS ORDERED: BABY ASPIRIN 81 MG CHEW ONE (12:02)
[2020-04-03] MEDS ORDERED: XYLOCAINE HCl Viscous ONE (12:03)
[2020-04-03] MEDS ORDERED: MAALOX ES 30 ML UNIT DOSE ONE (12:03)
--- NOTE | 2020-04-03 12:25 | ERPHSYRPT ---
- History of Present Illness Time Seen by Provider: 04/03/20 11:30 Historian: patient Exam Limitations: no limitations Patient Subjective Stated Complaint: Chest pain Triage Nursing Assessment: Patient brought back to ED via w/c and transferred to bed with assist of 1. Patient A+O X3. Patient's skin pink, warm and dry. Patient complains of increased chest pain and SOB for the past two weeks. Patient currently has sharp intermittent pain in chest 5/10. Lungs clear a/p blane. Heart tones audible. No edema noted. Patient states she is becoming more sob when walking the past two weeks. Physician History: 79 years old female with history of coronary artery disease status post stenting, esophageal carcinoma status post resection with resultant stricture with stent placement 6 weeks ago presented in the ER with chief complaint of substernal chest pain off and on for the last 2 weeks, dull to sharp burning in nature without any significant aggravating or relieving factors, moderate intensity, nonradiating and not associated with any nausea or vomiting. Patient has taken nitro at home with partial relief. Does have cough and shortness of breath which is chronically they are and at baseline. Denies any palpitations. No fever or chills reported. Timing/Duration: week(s) (2), intermittent, worse Activities at Onset: rest Quality: burning, sharpness Location: substernal Chest Pain Radiation: no radiation Severity of Pain-Max: severe Severity of Pain-Current: moderate Modifying Factors: Improves With: nothing Associated Symptoms: heartburn, shortness of breath, cough, No vomiting, No palpitations, No abdominal pain, No hurts to breathe Prior Chest Pain/Cardiac Workup: cardiac cath, heart attack Nitro Today/Relief: 0.4 mg x 1 Aspirin Treatment Today: no aspirin today Allergies/Adverse Reactions: No Known Drug Allergies Allergy (Verified 04/03/20 11:17) Home Medications: Aspirin 81 mg PO 1700 12/15/16 [History] Levothyroxine Sodium 50 Mcg [Synthroid 50 Mcg] 50 mcg PO DAILY 12/15/16 [History] Nebivolol HCl [Bystolic] 5 mg PO BID 12/15/16 [History] Sucralfate 1 gm [Carafate 1 GM] 1 gm PO BID 12/15/16 [History] Calcium Carbonate/Vitamin D3 [Caltrate 600 + D Tablet] 1 each PO BID 09/08/18 [History] Clopidogrel Bisulfate [Clopidogrel] 75 mg PO LUNCH 09/08/18 [History] Cyanocobalamin (Vitamin B-12) [Vitamin B-12] 500 mcg PO LUNCH 09/08/18 [History] Hydrocodone/Acetaminophen [Hydrocodone-Acetamin 5-325 mg] 1 tab PO Q4-6HPRN PRN 09/08/18 [History] Magnesium Chloride [Slow-Mag] 143 mg PO HS 09/08/18 [History] PANTOPRAZOLE 40 mg Tablet [Protonix 40MG Tablet] 40 mg PO QAM 09/08/18 [History] Prochlorperazine Maleate 10 mg [Compazine 10 mg] 10 mg PO UD PRN 09/08/18 [History] Simvastatin 20 mg PO HS 09/08/18 [History] Diphenoxylate HCl/Atropine [Lomotil] 1 tab PO DAILY 04/03/20 [History] Empagliflozin [Jardiance] 10 mg PO DAILY 04/03/20 [History] Glipizide [Glucotrol] 10 mg PO BID 04/03/20 [History] Ranolazine 500 MG [Ranexa 500 MG] 1 tab PO BID 04/03/20 [History] Hx Tetanus, Diphtheria Vaccination/Date Given: No Hx Influenza Vaccination/Date Given: No Hx Pneumococcal Vaccination/Date Given: No Immunizations Up to Date: Yes Travel Risk - International Travel Have you traveled outside of the country in past 3 weeks: No - Coronavirus Screening Are you exhibiting any of the following symptoms?: No Close contact with a COVID-19 positive Pt in past 14-21 Days: No - Review of Systems Constitutional: No Symptoms Eyes: No Symptoms Ears, Nose, & Throat: No Symptoms Respiratory: Cough, Dyspnea Cardiac: Chest Pain Abdominal/Gastrointestinal: No Symptoms Genitourinary Symptoms: No Symptoms Musculoskeletal: No Symptoms Skin: No Symptoms Neurological: No Symptoms Psychological: No Symptoms Endocrine: No Symptoms Hematologic/Lymphatic: No Symptoms Immunological/Allergic: No Symptoms - Past Medical History Pertinent Past Medical History: Yes Neurological History: No Pertinent History ENT History: Other Cardiac History: Angina, High Cholesterol, Hypertension, Myocardial Infarction ([place]) Respiratory History: No Pertinent History Endocrine Medical History: Diabetes Type II, Hypothyroidism Musculoskeletal History: Arthritis, Other GI Medical History: GERD, Other History: No Pertinent History Psycho-Social History: Anxiety Female Reproductive Disorders: No Pertinent History Other Medical History: hx fx L wrist, L ankle, Esophageal cancer, wears glasses to read, melanoma of left arm - Past Surgical History Past Surgical History: Yes Neuro Surgical History: No Pertinent History Cardiac: Cardiac Catheterization, Cardiac Stent Respiratory: No Pertinent History Gastrointestinal: Cholecystectomy Genitourinary: No Pertinent History Musculoskeletal: No Pertinent History Female Surgical History: No Pertinent History Other Surgical History: skin cancer surgical removal L F/A, CVL port placed, endoscopic US - x3 times. radiation and chemotherapy, D/C, Throat stents 6 weeks for scarring due to esophageal cancer - Social History Smoking Status: Never smoker Exposure to second hand smoke: No Drug Use: none Patient Lives Alone: Yes - Female History Hx Now: No - Nursing Vital Signs Nursing Vital Signs: Initial Vital Signs Pulse Rate 84 04/03/20 11:17 Respiratory Rate 23 04/03/20 11:17 Blood Pressure 187/93 04/03/20 11:17 O2 Sat by Pulse Oximetry 96 04/03/20 11:17 Pain Scale Pain Intensity 2 - Physical Exam General Appearance: no apparent distress Eye Exam: PERRL/EOMI, eyes nml inspection Ears, Nose, Throat Exam: normal ENT inspection, pharynx normal Neck Exam: normal inspection, supple, full range of motion Respiratory Exam: normal breath sounds, lungs clear, No chest tenderness Cardiovascular Exam: regular rate/rhythm, normal heart sounds Gastrointestinal/Abdomen Exam: soft, normal bowel sounds Back Exam: normal inspection Extremity Exam: normal inspection, normal range of motion Neurologic Exam: alert, oriented x 3, cooperative Skin Exam: normal color SpO2 Interpretation: normal SpO2: 96 O2 Delivery: Room Air - Course EKG Interpreted by Me: RATE, Sinus Rhythm, NORMAL AXIS, NORMAL INTERVALS, Q-wave Ordered Tests: Active Orders 24 hr Category Date Time Status Slack Line Yarder STAT Care 04/03/20 11:51 Completed Code Status Order ROUTINE Care 04/03/20 15:55 Active EKG-ER Only STAT Care 04/03/20 11:50 Completed IV Care Q6H Care 04/03/20 15:55 Active IV Insertion STAT Care 04/03/20 11:[address] in Observation ROUTINE Care 04/03/20 15:55 Active Enrico Hose, Apply ROUTINE Care 04/03/20 15:55 Active Weight,Daily 0600 Care 04/03/20 15:55 Active Consistent Carbohydrate Diet 1800 Calorie Diet 04/03/20 Dinner Active CHEST 1 VIEW (PORTABLE) Stat Exams 04/03/20 11:51 Completed CBC W DIFF AM.LAB Lab 04/04/20 04:00 Ordered CBC W DIFF Stat Lab 04/03/20 12:21 Completed CMP AM.LAB Lab 04/04/20 04:00 Ordered CMP Stat Lab 04/03/20 12:21 Completed NT PRO BNP Stat Lab 04/03/20 12:21 Completed TROPONIN Q3H Lab 04/03/20 12:21 Completed TROPONIN Q3H Lab 04/03/20 15:45 Completed TROPONIN Q3H Lab 04/03/20 18:00 Ordered TROPONIN Q3H Lab 04/03/20 21:00 Ordered TROPONIN Q3H Lab 04/04/20 00:00 Ordered Transfer Order Routine Transfer 04/03/20 Completed Medication Summary Generic Name Dose Route Start Last Admin Trade Name Freq PRN Reason Stop Dose Admin Acetaminophen 650 mg 04/03/20 15:55 Tylenol 325 Mg PO 05/03/20 15:54 Q4H PRN PRN PAIN AND/OR FEVER Hydrocodone Bitart/Acetaminophen 1 tab 04/03/20 17:02 [place] 5/325 Mg PO 04/08/20 17:01 Q4H PRN PRN PAIN Aspirin 81 mg 04/04/20 17:00 Ecotrin 81 Mg PO 05/04/20 16:59 1700 KHARI Calcium Carbonate 1 tab 04/03/20 22:00 Calcium 500mg W/Vit D Tablet PO 05/03/20 21:59 BID [facility] Clopidogrel Bisulfate 75 mg 04/04/20 12:00 Plavix 75 Mg Tablet PO 05/04/20 11:59 LUNCH [facility] Cyanocobalamin 500 mcg 04/04/20 12:00 Vitamin B-12 500 Mcg PO 05/04/20 11:59 LUNCH [facility] Diphenoxylate HCl/Atropine 1 tablet 04/04/20 10:00 Lomotil PO 05/04/20 09:59 DAILY [facility] Famotidine 20 mg 04/03/20 22:00 Pepcid 20 Mg Vial IV 05/03/20 21:59 Q12HT KHARI Glipizide 10 mg 04/03/20 17:30 Glucotrol 5 Mg PO 05/03/20 17:29 BIDWM [facility] Insulin Human Lispro 0 unit 04/03/20 15:55 Humalog SQ 05/03/20 15:54 UD PRN HYPERGLYCEMIA Levothyroxine Sodium 50 mcg 04/04/20 10:00 Synthroid 50 Mcg PO 05/04/20 09:59 DAILY [facility] Magnesium Oxide 200 mg 04/03/20 22:00 Mag-Ox 400 PO 05/03/20 21:59 HS [facility] Miscellaneous Information 1 each 04/03/20 17:15 Medication Intervention PO 05/03/20 17:14 .RN TO CHECK ON [facility] Nebivolol 5 mg 04/03/20 22:00 Bystolic 5 Mg PO 05/03/20 21:59 BID [facility] Pantoprazole Sodium 40 mg 04/04/20 10:00 Protonix 40mg Tablet PO 05/04/20 09:59 QAM [facility] Prochlorperazine 10 mg 04/03/20 17:13 Compazine 5 Mg PO 05/03/20 17:12 UD PRN NAUSEA Ranolazine 500 mg 04/03/20 22:00 Ranexa 500 Mg PO 05/03/20 21:59 BID [facility] Simvastatin 20 mg 04/03/20 22:00 Zocor 20mg PO 05/03/20 21:59 HS [facility] Sucralfate 1 g 04/03/20 17:30 Carafate 1 Gm PO 05/03/20 17:29 BIDAC [facility] Discontinued Medications Generic Name Dose Route Start Last Admin Trade Name Freq PRN Reason Stop Dose Admin Al Hydrox/Mg Hydrox/Simethicone Confirm 04/03/20 12:03 Maalox Es 30 Ml Unit Dose Administered 04/03/20 12:04 Dose 30 ml .ROUTE .STK-MED ONE Albuterol/Ipratropium 3 ml 04/03/20 15:55 Duoneb 0.5-3 Mg/3 Ml Neb IH 05/03/20 15:54 Q4HPRN PRN SHORTNESS OF BREATH/WHEEZING Aspirin 324 mg 04/03/20 11:50 04/03/20 12:05 Baby Aspirin 81 Mg Chew PO 04/03/20 11:51 324 mg STAT ONE Administration Aspirin Confirm 04/03/20 12:02 Baby Aspirin 81 Mg Chew Administered 04/03/20 12:03 Dose 324 mg .ROUTE .STK-MED ONE Lidocaine HCl Confirm 04/03/20 12:03 Xylocaine Hcl Viscous * Administered 04/03/20 12:04 Dose 15 ml .ROUTE .STK-MED ONE Magnesium Hydroxide 45 ml 04/03/20 11:51 04/03/20 12:05 Gi Cocktail 45 Ml (Maalox/Lidocaine) PO 04/03/20 11:52 45 ml STAT ONE Administration Nitroglycerin 1 gm 04/03/20 11:52 04/03/20 12:05 Nitro-Bid 2% Ud Packets TOP 04/03/20 11:53 1 gm STAT ONE Administration Nitroglycerin Confirm 04/03/20 12:02 Nitro-Bid 2% Ud Packets Administered 04/03/20 12:03 Dose 1 gm .ROUTE .STK-MED ONE Ondansetron HCl 4 mg 04/03/20 11:50 04/03/20 12:05 Zofran 4 Mg/2 Ml Vial IV 04/03/20 11:51 4 mg STAT ONE Administration Ondansetron HCl Confirm 04/03/20 12:02 Zofran 4 Mg/2 Ml Vial Administered 04/03/20 12:03 Dose 4 mg .ROUTE .STK-MED ONE Lab/Rad Data: Laboratory Result Diagrams 04/03/20 12:21 04/03/20 12:21 Laboratory Results 04/03/20 04/03/20 04/03/20 Range/Units 15:45 12:21 12:21 WBC (4.0-10.5) K/mm3 RBC (4.1-5.4) M/mm3 Hgb (12.0-16.0) gm/dl Hct (35-47) % MCV (78-100) fl MCH (26-32) pg MCHC (32-36) g/dl RDW (11.5-14.0) % Plt Count (150-450) K/mm3 MPV (7.5-11.0) fl Gran % (36.0-66.0) % Eos # (Auto) (0-0.5) Absolute Lymphs (auto) (1.0-4.6) Absolute Monos (auto) (0.0-1.3) Lymphocytes % (24.0-44.0) % Monocytes % (0.0-12.0) % Eosinophils % (0.00-5.0) % Basophils % (0.0-0.4) % Absolute Granulocytes (1.4-6.9) Basophils # (0-0.4) Sodium 135 L (137-145) mmol/L Potassium 4.0 (3.5-5.1) mmol/L Chloride 99 (98-107) mmol/L Carbon Dioxide 26 (22-30) mmol/L Anion Gap 14.3 (5-15) MEQ/L BUN 19 H (7-17) mg/dL Creatinine 0.77 (0.52-1.04) mg/dL Estimated GFR > 60.0 ML/MIN Glucose 121 H (74-106) mg/dL Calcium 9.5 (8.4-10.2) mg/dL Total Bilirubin 0.50 (0.2-1.3) mg/dL AST 19 (14-36) U/L ALT 10 (0-35) U/L Alkaline Phosphatase 56 (38-126) U/L Troponin I < 0.012 < 0.012 (0.000-0.034) ng/mL NT-Pro-B Natriuret Pep 379 (0-1800) pg/mL Serum Total Protein 6.2 L (6.3-8.2) g/dL Albumin 3.6 (3.5-5.0) g/dL 04/03/20 Range/Units 12:21 WBC 8.6 (4.0-10.5) K/mm3 RBC 5.18 (4.1-5.4) M/mm3 Hgb 14.1 (12.0-16.0) gm/dl Hct 43.7 (35-47) % MCV 84.4 (78-100) fl MCH 27.2 (26-32) pg MCHC 32.3 (32-36) g/dl RDW 17.7 H (11.5-14.0) % Plt Count 214 (150-450) K/mm3 MPV 10.7 (7.5-11.0) fl Gran % 70.1 H (36.0-66.0) % Eos # (Auto) 0.27 (0-0.5) Absolute Lymphs (auto) 1.49 (1.0-4.6) Absolute Monos (auto) 0.80 (0.0-1.3) Lymphocytes % 17.3 L (24.0-44.0) % Monocytes % 9.3 (0.0-12.0) % Eosinophils % 3.1 (0.00-5.0) % Basophils % 0.2 (0.0-0.4) % Absolute Granulocytes 6.04 (1.4-6.9) Basophils # 0.02 (0-0.4) Sodium (137-145) mmol/L Potassium (3.5-5.1) mmol/L Chloride (98-107) mmol/L Carbon Dioxide (22-30) mmol/L Anion Gap (5-15) MEQ/L BUN (7-17) mg/dL Creatinine (0.52-1.04) mg/dL Estimated GFR ML/MIN Glucose (74-106) mg/dL Calcium (8.4-10.2) mg/dL Total Bilirubin (0.2-1.3) mg/dL AST (14-36) U/L ALT (0-35) U/L Alkaline Phosphatase (38-126) U/L Troponin I (0.000-0.034) ng/mL NT-Pro-B Natriuret Pep (0-1800) pg/mL Serum Total Protein (6.3-8.2) g/dL Albumin (3.5-5.0) g/dL - Progress Progress: improved, re-examined Air Movement: good Progress Note: 04/03/20 is given aspirin and Nitropaste, on reevaluation her pain is better. EKG did not show any acute ischemic changes. Negative initial troponin. Chest x-ray no acute findings. Grossly unremarkable work-up otherwise. Patient does have multiple risk factor and needs to be ruled out AR. I have discussed with Dr. Lima, recommended discussion with primary arc trimmer Dr. Loi Akers. I have discussed with Dr. Akers, didieray with keeping patient in here and he can be called if there is any question. Patient is admitted for acute AR rule out. Blood Culture(s) Obtained: No Antibiotics given: No Discussed with Dr.: Pina Counseled pt/family regarding: lab results, diagnosis, rad results - Departure Departure Disposition: Observation Clinical Impression: Chest pain, rule out acute myocardial infarction Condition: Stable Critical Care Time: No
--- NOTE | 2020-04-03 12:37 | XRAY ---
Indication: Chest pain. Comparison: September 08, 2018. Portable chest demonstrates new mediastinal stent graft presumed esophageal. Lungs remain hyperinflated and clear with tiny calcified granulomas. Heart is not enlarged with stable left Port-A-Cath. Bony thorax intact again with osteopenia, degenerative changes, and T7-T10 kyphoplasty. Impression: Nonacute chest with chronic features.
[2020-04-03 12:44] LABS: ALBUMIN 3.6 g/dL (3.5-5.0); ALKALINE PHOSPHATASE 56 U/L (38-126); ANION GAP 14.3 MEQ/L (5-15); BLOOD UREA NITROGEN 19 mg/dL (7-17); CHLORIDE 99 mmol/L (98-107); Calcium 9.5 mg/dL (8.4-10.2); Carbon Dioxide 26 mmol/L (22-30); Creatinine 1 0.77 mg/dL (0.52-1.04); Glucose 121 mg/dL (74-106); NT PRO BNP 379 pg/mL (0-1800); SGOT/AST 19 U/L (14-36); SGPT/ALT 10 U/L (0-35); SODIUM 135 mmol/L (137-145); Total Protein 6.2 g/dL (6.3-8.2)
[2020-04-03 12:53] LABS: Absolute Neutrophil Ct (ANC) 6.04 (1.4-6.9); BASOPHIL % 0.2 % (0.0-0.4); Basophil (Absolute #) 0.02 (0-0.4); Eosinophil % 3.1 % (0.00-5.0); Eosinophil (Absolute #) 0.27 (0-0.5); Hematocrit 43.7 % (35-47); Hemoglobin 14.1 gm/dl (12.0-16.0); Lymphocyte (Absolute #) 1.49 (1.0-4.6); Lymphocytes % 17.3 % (24.0-44.0); Mean Cell Volume 84.4 fl (78-100); Mean Corpuscular Hemoglobin 27.2 pg (26-32); Mean Corpuscular Hgb Concent. 32.3 g/dl (32-36); Mean Platelet Volume 10.7 fl (7.5-11.0); Monocytes % 9.3 % (0.0-12.0); Neutrophil % 70.1 % (36.0-66.0); Platelet Count 214 K/mm3 (150-450); Red Blood Count 5.18 M/mm3 (4.1-5.4); Red Cell Distribution Width 17.7 % (11.5-14.0); White Blood Count 8.6 K/mm3 (4.0-10.5)
[2020-04-03] MEDS ORDERED: HUMALOG SQ PRN (15:55)
[2020-04-03] MEDS ORDERED: TYLENOL 325 MG PO PRN (15:55)
[2020-04-03] MEDS ORDERED: DUONEB 0.5-3 MG/3 ml Neb IH PRN (15:55)
[2020-04-03] MEDS ORDERED: NON-FORMULARY ITEM (Prochlorperazine Maleate 10 Mg [Compazine 10 Mg] 10 MG) PO PRN (17:02)
[2020-04-03] MEDS ORDERED: NORCO 5/325 MG PO PRN (17:02)
[2020-04-03] MEDS ORDERED: Compazine 5 MG PO PRN (17:13)
[2020-04-03] MEDS ORDERED: MEDICATION INTERVENTION PO SCH (17:15)
[2020-04-03] MEDS: Carafate 1 GM PO SCH (18:29)
[2020-04-03] MEDS: Glucotrol 5 MG PO SCH (18:29)
[2020-04-03] MEDS: Bystolic 5 MG PO SCH (21:30)
[2020-04-03] MEDS: Calcium 500MG W/Vit D Tablet PO SCH (21:31)
[2020-04-03] MEDS: Pepcid 20 MG VIAL IV SCH (21:32)
[2020-04-03] MEDS: Ranexa 500 MG PO SCH (21:32)
[2020-04-03] MEDS ORDERED: NON-FORMULARY ITEM (Nebivolol Hcl [Bystolic] 5 MG) PO SCH (22:00)
[2020-04-03] MEDS ORDERED: CALCIUM CARBONATE PO SCH (22:00)
[2020-04-03] MEDS ORDERED: VITAMIN D3 PO SCH (22:00)
[2020-04-03] MEDS ORDERED: MAG-OX 400 PO SCH (22:00)
[2020-04-03] MEDS ORDERED: GLIPIZIDE 10 MG PO SCH (22:00)
[2020-04-03] MEDS ORDERED: MAGNESIUM CHLORIDE 143 MG PO SCH (22:00)
[2020-04-03] MEDS ORDERED: ZOCOR 20MG PO SCH (22:00)
[2020-04-04 04:59] LABS: Absolute Neutrophil Ct (ANC) 4.81 (1.4-6.9); BASOPHIL % 0.3 % (0.0-0.4); Basophil (Absolute #) 0.02 (0-0.4); Hematocrit 43.6 % (35-47); Hemoglobin 13.8 gm/dl (12.0-16.0); Lymphocyte (Absolute #) 1.49 (1.0-4.6); Lymphocytes % 20.1 % (24.0-44.0); Mean Cell Volume 83.8 fl (78-100); Mean Corpuscular Hemoglobin 26.5 pg (26-32); Mean Corpuscular Hgb Concent. 31.7 g/dl (32-36); Mean Platelet Volume 10.9 fl (7.5-11.0); Monocyte (Absolute #) 0.81 (0.0-1.3); Monocytes % 10.9 % (0.0-12.0); Neutrophil % 64.7 % (36.0-66.0); Platelet Count 214 K/mm3 (150-450); Red Cell Distribution Width 17.8 % (11.5-14.0); White Blood Count 7.4 K/mm3 (4.0-10.5)
[2020-04-04 05:26] LABS: ALBUMIN 3.5 g/dL (3.5-5.0); ALKALINE PHOSPHATASE 57 U/L (38-126); ANION GAP 10.9 MEQ/L (5-15); BLOOD UREA NITROGEN 13 mg/dL (7-17); CHLORIDE 96 mmol/L (98-107); Calcium 9.1 mg/dL (8.4-10.2); Carbon Dioxide 31 mmol/L (22-30); Creatinine 1 0.78 mg/dL (0.52-1.04); Glucose 139 mg/dL (74-106); Potassium 4.1 mmol/L (3.5-5.1); SGOT/AST 22 U/L (14-36); SGPT/ALT 10 U/L (0-35); SODIUM 134 mmol/L (137-145); Total Protein 6.3 g/dL (6.3-8.2)
[2020-04-04] MEDS: Carafate 1 GM PO SCH (08:13)
[2020-04-04] MEDS: Glucotrol 5 MG PO SCH (08:13)
[2020-04-04 08:19] VITALS: BP 142/67; PULSE 88; O2SAT 90
--- NOTE | 2020-04-04 08:47 | PCM.SSS ---
History of Present Illness - Chief Complaint Chief Complaint: chest pain r/o SD History of Present Illness: is a 79 year old female patient of Dr Solis who came to the ER yesterday mid-day complaining of sharp substernal chest pain, she reports she has had chest pain off and on for years. She is very poor at describing her symptoms but pain is sharp and substernal, "sometimes" she has some shortness of breath and nausea, she sees Dr Kath Spann for cardiology and has a history of CAD and stenting. She states she had a friend over yesterday when she had pain that implored her to come get checked out. She has nitro at home but didn't taken any, she is not certain why she doesn't take it but states she has some at home. She has a history of esophageal stenting for stricture following surgical removal of esophageal cancer. She is swallowing ok but has trouble eating becau se she does not wear her dentures because they don't fit right. - Review of Systems Constitutional: No Fever, No Chills Respiratory: No Cough, No Short Of Breath Cardiac: Chest Pain (none currently) Abdominal/Gastrointestinal: No Abdominal Pain, No Nausea, No Vomiting, No Diarrhea Genitourinary Symptoms: No Dysuria Skin: No Rash All Other Systems: Reviewed and Negative Medications & Allergies Home Medications: Home Medication List Aspirin 81 mg PO 1700 12/15/16 [History Confirmed 04/03/20] Levothyroxine Sodium 50 Mcg [Synthroid 50 Mcg] 50 mcg PO DAILY 12/15/16 [History Confirmed 04/03/20] Nebivolol HCl [Bystolic] 5 mg PO BID 12/15/16 [History Confirmed 04/03/20] Sucralfate 1 gm [Carafate 1 GM] 1 gm PO BID 12/15/16 [History Confirmed 04/03/20] Calcium Carbonate/Vitamin D3 [Caltrate 600 Plus D3 Tablet] 1 each PO BID 09/08/18 [History Confirmed 04/03/20] Clopidogrel Bisulfate [Clopidogrel] 75 mg PO LUNCH 09/08/18 [History Confirmed 04/03/20] Cyanocobalamin (Vitamin B-12) [Vitamin B-12] 500 mcg PO LUNCH 09/08/18 [History Confirmed 04/03/20] Hydrocodone/Acetaminophen [Hydrocodone-Acetamin 5-325 mg] 1 tab PO Q4-6HPRN PRN 09/08/18 [History Confirmed 04/03/20] Magnesium Chloride [Slow-Mag] 143 mg PO HS 09/08/18 [History Confirmed 04/03/20] PANTOPRAZOLE 40 mg Tablet [Protonix 40MG Tablet] 40 mg PO QAM 09/08/18 [History Confirmed 04/03/20] Prochlorperazine Maleate 10 mg [Compazine 10 mg] 10 mg PO UD PRN 09/08/18 [History Confirmed 04/03/20] Simvastatin 20 mg PO HS 09/08/18 [History Confirmed 04/03/20] Diphenoxylate HCl/Atropine [Lomotil] 1 tab PO DAILY 04/03/20 [History Confirmed 04/03/20] Empagliflozin [Jardiance] 10 mg PO DAILY 04/03/20 [History Confirmed 04/03/20] Glipizide [Glucotrol] 10 mg PO BID 04/03/20 [History Confirmed 04/03/20] Ranolazine 500 MG [Ranexa 500 MG] 1 tab PO BID 04/03/20 [History Confirmed 04/03/20] Allergies/Adverse Reactions: Allergies Allergy/AdvReac Type Severity Reaction Status Date / Time No Known Drug Allergies Allergy Verified 04/03/20 11:17 - Past Medical History Past Medical History: Yes Neurological History: No Pertinent History ENT History: Other Cardiac History: Angina, High Cholesterol, Hypertension, Myocardial Infarction (SD) Respiratory History: No Pertinent History Endocrine Medical History: Diabetes Type II, Hypothyroidism Musculoskelatal History: Arthritis, Other GI Medical History: GERD, Other History: No Pertinent History Pyscho-Social History: Anxiety Reproductive Disorders: No Pertinent History Comment: hx fx L wrist, L ankle, Esophageal cancer, wears glasses to read, melanoma of left arm - Female History Are you now?: No - Past Surgical History Past Surgical History: Yes Neuro Surgical History: No Pertinent History Cardiac History: Cardiac Catheterization, Cardiac Stent Respiratory Surgery: No Pertinent History GI Surgical History: Cholecystectomy Genitourinary Surgical Hx: No Pertinent History Musculskeletal Surgical Hx: No Pertinent History Female Surgical History: No Pertinent History Other Surgical History: skin cancer surgical removal L F/A, CVL port placed, endoscopic US - x3 times. radiation and chemotherapy, D/C, Throat stents 6 weeks for scarring due to esophageal cancer - Social History Smoking Status: Never smoker Exposure to second hand smoke: No Alcohol: None Drug Use: none - Physical Exam Vital Signs: Vital Signs - 24 hr Temp Pulse Resp BP Pulse Ox 04/04/20 08:00 98.0 F 88 17 142/67 90 L 04/04/20 06:36 93 L 04/04/20 04:00 98.0 F 77 18 142/87 93 L 04/03/20 23:41 98.8 F 78 16 135/68 95 04/03/20 21:50 94 L 04/03/20 20:00 98.1 F 84 16 139/68 94 L 04/03/20 17:24 96 04/03/20 16:15 94 L 04/03/20 16:13 98.5 F 82 18 133/63 94 L 04/03/20 16:12 98.5 F 82 16 133/63 94 L 04/03/20 15:30 98.0 F 81 20 144/70 98 04/03/20 14:36 98.0 F 85 20 179/96 98 04/03/20 13:11 98.0 F 75 20 162/79 98 04/03/20 12:21 98.5 F 87 20 150/83 98 04/03/20 11:17 84 23 187/93 96 General Appearance: no apparent distress Neurologic Exam: alert, oriented x 3 Ears, Nose, Throat Exam: other (edentulous) Neck Exam: normal inspection, non-tender, supple, full range of motion Respiratory Exam: normal breath sounds, lungs clear, No respiratory distress Cardiovascular Exam: regular rate/rhythm, normal heart sounds, normal peripheral pulses Gastrointestinal/Abdomen Exam: soft, normal bowel sounds, No tenderness, No mass Skin Exam: normal color, warm, dry, No rash Results - Labs Lab/Micro Results: Accuchecks Date 04/03/20 Time 21:30 Accucheck Value: 161 Lab Results-Last 24 Hours 04/03/20 04/03/20 04/03/20 Range/Units 12:21 12:21 12:21 WBC 8.6 (4.0-10.5) K/mm3 RBC 5.18 (4.1-5.4) M/mm3 Hgb 14.1 (12.0-16.0) gm/dl Hct 43.7 (35-47) % MCV 84.4 (78-100) fl MCH 27.2 (26-32) pg MCHC 32.3 (32-36) g/dl RDW 17.7 H (11.5-14.0) % Plt Count 214 (150-450) K/mm3 MPV 10.7 (7.5-11.0) fl Gran % 70.1 H (36.0-66.0) % Eos # (Auto) 0.27 (0-0.5) Absolute Lymphs (auto) 1.49 (1.0-4.6) Absolute Monos (auto) 0.80 (0.0-1.3) Lymphocytes % 17.3 L (24.0-44.0) % Monocytes % 9.3 (0.0-12.0) % Eosinophils % 3.1 (0.00-5.0) % Basophils % 0.2 (0.0-0.4) % Absolute Granulocytes 6.04 (1.4-6.9) Basophils # 0.02 (0-0.4) Sodium 135 L (137-145) mmol/L Potassium 4.0 (3.5-5.1) mmol/L Chloride 99 (98-107) mmol/L Carbon Dioxide 26 (22-30) mmol/L Anion Gap 14.3 (5-15) MEQ/L BUN 19 H (7-17) mg/dL Creatinine 0.77 (0.52-1.04) mg/dL Estimated GFR > 60.0 ML/MIN Glucose 121 H (74-106) mg/dL Hemoglobin A1c (4.5-6.0) % Calcium 9.5 (8.4-10.2) mg/dL Total Bilirubin 0.50 (0.2-1.3) mg/dL AST 19 (14-36) U/L ALT 10 (0-35) U/L Alkaline Phosphatase 56 (38-126) U/L Troponin I < 0.012 (0.000-0.034) ng/mL NT-Pro-B Natriuret Pep 379 (0-1800) pg/mL Serum Total Protein 6.2 L (6.3-8.2) g/dL Albumin 3.6 (3.5-5.0) g/dL 04/03/20 04/03/20 04/03/20 Range/Units 15:45 16:00 18:20 WBC (4.0-10.5) K/mm3 RBC (4.1-5.4) M/mm3 Hgb (12.0-16.0) gm/dl Hct (35-47) % MCV (78-100) fl MCH (26-32) pg MCHC (32-36) g/dl RDW (11.5-14.0) % Plt Count (150-450) K/mm3 MPV (7.5-11.0) fl Gran % (36.0-66.0) % Eos # (Auto) (0-0.5) Absolute Lymphs (auto) (1.0-4.6) Absolute Monos (auto) (0.0-1.3) Lymphocytes % (24.0-44.0) % Monocytes % (0.0-12.0) % Eosinophils % (0.00-5.0) % Basophils % (0.0-0.4) % Absolute Granulocytes (1.4-6.9) Basophils # (0-0.4) Sodium (137-145) mmol/L Potassium (3.5-5.1) mmol/L Chloride (98-107) mmol/L Carbon Dioxide (22-30) mmol/L Anion Gap (5-15) MEQ/L BUN (7-17) mg/dL Creatinine (0.52-1.04) mg/dL Estimated GFR ML/MIN Glucose (74-106) mg/dL Hemoglobin A1c 7.28 H (4.5-6.0) % Calcium (8.4-10.2) mg/dL Total Bilirubin (0.2-1.3) mg/dL AST (14-36) U/L ALT (0-35) U/L Alkaline Phosphatase (38-126) U/L Troponin I < 0.012 < 0.012 (0.000-0.034) ng/mL NT-Pro-B Natriuret Pep (0-1800) pg/mL Serum Total Protein (6.3-8.2) g/dL Albumin (3.5-5.0) g/dL 08/01/1604/04/20 04/04/20 Range/Units 21:45 00:23 04:33 WBC 7.4 (4.0-10.5) K/mm3 RBC 5.20 (4.1-5.4) M/mm3 Hgb 13.8 (12.0-16.0) gm/dl Hct 43.6 (35-47) % MCV 83.8 (78-100) fl MCH 26.5 (26-32) pg MCHC 31.7 L (32-36) g/dl RDW 17.8 H (11.5-14.0) % Plt Count 214 (150-450) K/mm3 MPV 10.9 (7.5-11.0) fl Gran % 64.7 (36.0-66.0) % Eos # (Auto) 0.30 (0-0.5) Absolute Lymphs (auto) 1.49 (1.0-4.6) Absolute Monos (auto) 0.81 (0.0-1.3) Lymphocytes % 20.1 L (24.0-44.0) % Monocytes % 10.9 (0.0-12.0) % Eosinophils % 4.0 (0.00-5.0) % Basophils % 0.3 (0.0-0.4) % Absolute Granulocytes 4.81 (1.4-6.9) Basophils # 0.02 (0-0.4) Sodium (137-145) mmol/L Potassium (3.5-5.1) mmol/L Chloride (98-107) mmol/L Carbon Dioxide (22-30) mmol/L Anion Gap (5-15) MEQ/L BUN (7-17) mg/dL Creatinine (0.52-1.04) mg/dL Estimated GFR ML/MIN Glucose (74-106) mg/dL Hemoglobin A1c (4.5-6.0) % Calcium (8.4-10.2) mg/dL Total Bilirubin (0.2-1.3) mg/dL AST (14-36) U/L ALT (0-35) U/L Alkaline Phosphatase (38-126) U/L Troponin I < 0.012 < 0.012 (0.000-0.034) ng/mL NT-Pro-B Natriuret Pep (0-1800) pg/mL Serum Total Protein (6.3-8.2) g/dL Albumin (3.5-5.0) g/dL 04/04/20 Range/Units 04:33 WBC (4.0-10.5) K/mm3 RBC (4.1-5.4) M/mm3 Hgb (12.0-16.0) gm/dl Hct (35-47) % MCV (78-100) fl MCH (26-32) pg MCHC (32-36) g/dl RDW (11.5-14.0) % Plt Count (150-450) K/mm3 MPV (7.5-11.0) fl Gran % (36.0-66.0) % Eos # (Auto) (0-0.5) Absolute Lymphs (auto) (1.0-4.6) Absolute Monos (auto) (0.0-1.3) Lymphocytes % (24.0-44.0) % Monocytes % (0.0-12.0) % Eosinophils % (0.00-5.0) % Basophils % (0.0-0.4) % Absolute Granulocytes (1.4-6.9) Basophils # (0-0.4) Sodium 134 L (137-145) mmol/L Potassium 4.1 (3.5-5.1) mmol/L Chloride 96 L (98-107) mmol/L Carbon Dioxide 31 H (22-30) mmol/L Anion Gap 10.9 (5-15) MEQ/L BUN 13 (7-17) mg/dL Creatinine 0.78 (0.52-1.04) mg/dL Estimated GFR > 60.0 ML/MIN Glucose 139 H (74-106) mg/dL Hemoglobin A1c (4.5-6.0) % Calcium 9.1 (8.4-10.2) mg/dL Total Bilirubin 0.70 (0.2-1.3) mg/dL AST 22 (14-36) U/L ALT 10 (0-35) U/L Alkaline Phosphatase 57 (38-126) U/L Troponin I (0.000-0.034) ng/mL NT-Pro-B Natriuret Pep (0-1800) pg/mL Serum Total Protein 6.3 (6.3-8.2) g/dL Albumin 3.5 (3.5-5.0) g/dL Accuchecks Date 04/03/20 Time 21:30 Accucheck Value: 161 - Radiology Impressions Radiology Exams & Impressions: Radiology Procedures Category Date Time Status CHEST 1 VIEW (PORTABLE) Stat Exams 04/03/20 11:51 Completed Assessment/Plan (1) Chest pain Current Visit: Yes Status: Acute Assessment & Plan: SD ruled out, continue bystolic, simvastatin, aspirin, plavix and ranexa per home regimen and she is on jardiance. appears to be maximally medically managed currently. encouraged to use nitro when having pain at home and to f/u with Dr Spann in the next week Code(s): R07.9 - CHEST PAIN, UNSPECIFIED Hospital Summary - Vitals & Intake/Output Vital Signs: Vital Signs Temperature 98.0 F 04/04/20 08:00 Pulse Rate 88 04/04/20 08:00 Respiratory Rate 17 04/04/20 08:00 Blood Pressure 142/67 04/04/20 08:00 O2 Sat by Pulse Oximetry 90 L 04/04/20 08:00 Intake & Output: Intake & Output 04/01/20 04/02/20 04/03/20 04/04/20 11:59 11:59 11:59 11:59 Intake Total 640 Output Total 1000 Balance -360 Weight 63.684 kg 60.6 kg - Lab Result Diagrams: 04/04/20 04:33 04/04/20 04:33 Lab Results-Last 24 Hrs: Accuchecks Date 04/03/20 Time 21:30 Accucheck Value: 161 Lab Results-Last 24 Hours 04/03/20 04/03/20 04/03/20 Range/Units 12:21 12:21 12:21 WBC 8.6 (4.0-10.5) K/mm3 RBC 5.18 (4.1-5.4) M/mm3 Hgb 14.1 (12.0-16.0) gm/dl Hct 43.7 (35-47) % MCV 84.4 (78-100) fl MCH 27.2 (26-32) pg MCHC 32.3 (32-36) g/dl RDW 17.7 H (11.5-14.0) % Plt Count 214 (150-450) K/mm3 MPV 10.7 (7.5-11.0) fl Gran % 70.1 H (36.0-66.0) % Eos # (Auto) 0.27 (0-0.5) Absolute Lymphs (auto) 1.49 (1.0-4.6) Absolute Monos (auto) 0.80 (0.0-1.3) Lymphocytes % 17.3 L (24.0-44.0) % Monocytes % 9.3 (0.0-12.0) % Eosinophils % 3.1 (0.00-5.0) % Basophils % 0.2 (0.0-0.4) % Absolute Granulocytes 6.04 (1.4-6.9) Basophils # 0.02 (0-0.4) Sodium 135 L (137-145) mmol/L Potassium 4.0 (3.5-5.1) mmol/L Chloride 99 (98-107) mmol/L Carbon Dioxide 26 (22-30) mmol/L Anion Gap 14.3 (5-15) MEQ/L BUN 19 H (7-17) mg/dL Creatinine 0.77 (0.52-1.04) mg/dL Estimated GFR > 60.0 ML/MIN Glucose 121 H (74-106) mg/dL Hemoglobin A1c (4.5-6.0) % Calcium 9.5 (8.4-10.2) mg/dL Total Bilirubin 0.50 (0.2-1.3) mg/dL AST 19 (14-36) U/L ALT 10 (0-35) U/L Alkaline Phosphatase 56 (38-126) U/L Troponin I < 0.012 (0.000-0.034) ng/mL NT-Pro-B Natriuret Pep 379 (0-1800) pg/mL Serum Total Protein 6.2 L (6.3-8.2) g/dL Albumin 3.6 (3.5-5.0) g/dL 04/03/20 04/03/20 04/03/20 Range/Units 15:45 16:00 18:20 WBC (4.0-10.5) K/mm3 RBC (4.1-5.4) M/mm3 Hgb (12.0-16.0) gm/dl Hct (35-47) % MCV (78-100) fl MCH (26-32) pg MCHC (32-36) g/dl RDW (11.5-14.0) % Plt Count (150-450) K/mm3 MPV (7.5-11.0) fl Gran % (36.0-66.0) % Eos # (Auto) (0-0.5) Absolute Lymphs (auto) (1.0-4.6) Absolute Monos (auto) (0.0-1.3) Lymphocytes % (24.0-44.0) % Monocytes % (0.0-12.0) % Eosinophils % (0.00-5.0) % Basophils % (0.0-0.4) % Absolute Granulocytes (1.4-6.9) Basophils # (0-0.4) Sodium (137-145) mmol/L Potassium (3.5-5.1) mmol/L Chloride (98-107) mmol/L Carbon Dioxide (22-30) mmol/L Anion Gap (5-15) MEQ/L BUN (7-17) mg/dL Creatinine (0.52-1.04) mg/dL Estimated GFR ML/MIN Glucose (74-106) mg/dL Hemoglobin A1c 7.28 H (4.5-6.0) % Calcium (8.4-10.2) mg/dL Total Bilirubin (0.2-1.3) mg/dL AST (14-36) U/L ALT (0-35) U/L Alkaline Phosphatase (38-126) U/L Troponin I < 0.012 < 0.012 (0.000-0.034) ng/mL NT-Pro-B Natriuret Pep (0-1800) pg/mL Serum Total Protein (6.3-8.2) g/dL Albumin (3.5-5.0) g/dL 04/03/20 04/04/20 04/04/20 Range/Units 21:45 00:23 04:33 WBC 7.4 (4.0-10.5) K/mm3 RBC 5.20 (4.1-5.4) M/mm3 Hgb 13.8 (12.0-16.0) gm/dl Hct 43.6 (35-47) % MCV 83.8 (78-100) fl MCH 26.5 (26-32) pg MCHC 31.7 L (32-36) g/dl RDW 17.8 H (11.5-14.0) % Plt Count 214 (150-450) K/mm3 MPV 10.9 (7.5-11.0) fl Gran % 64.7 (36.0-66.0) % Eos # (Auto) 0.30 (0-0.5) Absolute Lymphs (auto) 1.49 (1.0-4.6) Absolute Monos (auto) 0.81 (0.0-1.3) Lymphocytes % 20.1 L (24.0-44.0) % Monocytes % 10.9 (0.0-12.0) % Eosinophils % 4.0 (0.00-5.0) % Basophils % 0.3 (0.0-0.4) % Absolute Granulocytes 4.81 (1.4-6.9) Basophils # 0.02 (0-0.4) Sodium (137-145) mmol/L Potassium (3.5-5.1) mmol/L Chloride (98-107) mmol/L Carbon Dioxide (22-30) mmol/L Anion Gap (5-15) MEQ/L BUN (7-17) mg/dL Creatinine (0.52-1.04) mg/dL Estimated GFR ML/MIN Glucose (74-106) mg/dL Hemoglobin A1c (4.5-6.0) % Calcium (8.4-10.2) mg/dL Total Bilirubin (0.2-1.3) mg/dL AST (14-36) U/L ALT (0-35) U/L Alkaline Phosphatase (38-126) U/L Troponin I < 0.012 < 0.012 (0.000-0.034) ng/mL NT-Pro-B Natriuret Pep (0-1800) pg/mL Serum Total Protein (6.3-8.2) g/dL Albumin (3.5-5.0) g/dL 04/04/20 Range/Units 04:33 WBC (4.0-10.5) K/mm3 RBC (4.1-5.4) M/mm3 Hgb (12.0-16.0) gm/dl Hct (35-47) % MCV (78-100) fl MCH (26-32) pg MCHC (32-36) g/dl RDW (11.5-14.0) % Plt Count (150-450) K/mm3 MPV (7.5-11.0) fl Gran % (36.0-66.0) % Eos # (Auto) (0-0.5) Absolute Lymphs (auto) (1.0-4.6) Absolute Monos (auto) (0.0-1.3) Lymphocytes % (24.0-44.0) % Monocytes % (0.0-12.0) % Eosinophils % (0.00-5.0) % Basophils % (0.0-0.4) % Absolute Granulocytes (1.4-6.9) Basophils # (0-0.4) Sodium 134 L (137-145) mmol/L Potassium 4.1 (3.5-5.1) mmol/L Chloride 96 L (98-107) mmol/L Carbon Dioxide 31 H (22-30) mmol/L Anion Gap 10.9 (5-15) MEQ/L BUN 13 (7-17) mg/dL Creatinine 0.78 (0.52-1.04) mg/dL Estimated GFR > 60.0 ML/MIN Glucose 139 H (74-106) mg/dL Hemoglobin A1c (4.5-6.0) % Calcium 9.1 (8.4-10.2) mg/dL Total Bilirubin 0.70 (0.2-1.3) mg/dL AST 22 (14-36) U/L ALT 10 (0-35) U/L Alkaline Phosphatase 57 (38-126) U/L Troponin I (0.000-0.034) ng/mL NT-Pro-B Natriuret Pep (0-1800) pg/mL Serum Total Protein 6.3 (6.3-8.2) g/dL Albumin 3.5 (3.5-5.0) g/dL Micro Results-Entire Visit: Accuchecks Date 04/03/20 Time 21:30 Accucheck Value: 161 - Radiology Exams Ordered Rad Exams-Entire Visit: Radiology Procedures Category Date Time Status CHEST 1 VIEW (PORTABLE) Stat Exams 04/03/20 11:51 Completed - Discharge Disposition: Home, Self-Care Condition: Stable Prescriptions: Continue Sucralfate 1 gm [Carafate 1 GM] 1 gm PO BID Nebivolol HCl [Bystolic] 5 mg PO BID Aspirin 81 mg PO 1700 Levothyroxine Sodium 50 Mcg [Synthroid 50 Mcg] 50 mcg PO DAILY Prochlorperazine Maleate 10 mg [Compazine 10 mg] 10 mg PO UD PRN PRN Reason: Nausea Hydrocodone/Acetaminophen [Hydrocodone-Acetamin 5-325 mg] 1 tab PO Q4-6HPRN PRN PRN Reason: Pain Cyanocobalamin (Vitamin B-12) [Vitamin B-12] 500 mcg PO LUNCH Magnesium Chloride [Slow-Mag] 143 mg PO HS Simvastatin 20 mg PO HS Clopidogrel Bisulfate [Clopidogrel] 75 mg PO LUNCH Calcium Carbonate/Vitamin D3 [Caltrate 600 Plus D3 Tablet] 1 each PO BID PANTOPRAZOLE 40 mg Tablet [Protonix 40MG Tablet] 40 mg PO QAM Ranolazine 500 MG [Ranexa 500 MG] 1 tab PO BID Glipizide [Glucotrol] 10 mg PO BID Diphenoxylate HCl/Atropine [Lomotil] 1 tab PO DAILY Empagliflozin [Jardiance] 10 mg PO DAILY Follow up with: CHANI SPANN [Primary Care Provider] - 1 Week
[2020-04-04] MEDS: Bystolic 5 MG PO SCH (09:45)
[2020-04-04] MEDS: Pepcid 20 MG VIAL IV SCH (09:45)
[2020-04-04] MEDS: Ranexa 500 MG PO SCH (09:45)
[2020-04-04] MEDS: Calcium 500MG W/Vit D Tablet PO SCH (09:45)
[2020-04-04] MEDS ORDERED: Lomotil PO SCH (10:00)
[2020-04-04] MEDS ORDERED: NON-FORMULARY ITEM (Empagliflozin [Jardiance] 10 MG) PO SCH (10:00)
[2020-04-04] MEDS ORDERED: SYNTHROID 50 MCG PO SCH (10:00)
[2020-04-04] MEDS ORDERED: Protonix 40MG Tablet PO SCH (10:00)
[2020-04-04] MEDS ORDERED: PLAVIX 75 MG Tablet PO SCH (12:00)
[2020-04-04] MEDS ORDERED: Vitamin B-12 500 MCG PO SCH (12:00)
[2020-04-04] MEDS ORDERED: CYANOCOBALAMIN 500 MCG PO SCH (12:00)
[2020-04-04] MEDS ORDERED: ECOTRIN 81 MG PO SCH (17:00)
== END 2020-04-04 12:03 | disposition home or self-care (01) ==
LOC: ED 11:14 → MED SURG 15:53
PROVIDERS: ADMIT Family Medicine; ATTEND Family Medicine
DX: R07.9 Chest pain, unspecified (principal); E11.9 Type 2 diabetes mellitus without complications; I10 Essential (primary) hypertension; E03.9 Hypothyroidism, unspecified; Z86.79 Personal history of other diseases of the circulatory system; Z79.899 Other long term (current) drug therapy; I25.2 Old myocardial infarction; Z79.01 Long term (current) use of anticoagulants
CPT/HCPCS: 36000; 36415; 71045; 80053; 82962; 83036; 83880; 84484; 85025; 93005; 93041; 93268; 94762; 96374; 99285; G0378; J1642; J2405; A9270-GY

== ENCOUNTER 2020-11-06 18:14 | Emergency (ER) | payer MEDICARE ==
[2020-11-06] MEDS ORDERED: BABY ASPIRIN 81 MG CHEW PO ONE (18:22)
[2020-11-06] MEDS ORDERED: Nitrostat 0.4 MG (ED) SL ONE (18:22)
[2020-11-06] MEDS ORDERED: Zofran 4 MG/2 ML VIAL IV ONE (18:22)
[2020-11-06] MEDS ORDERED: MORPHINE SULFATE 2 MG INJ IV ONE (18:32)
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
[2020-11-06] MEDS ORDERED: Zofran 4 MG/2 ML VIAL ONE (18:40)
[2020-11-06] MEDS ORDERED: MORPHINE SULFATE 2 MG INJ ONE (18:40)
[2020-11-06 18:42] LABS: Absolute Neutrophil Ct (ANC) 5.29 (1.4-6.9); BASOPHIL % 0.5 % (0.0-0.4); Basophil (Absolute #) 0.04 (0-0.4); Eosinophil % 2.3 % (0.00-5.0); Eosinophil (Absolute #) 0.19 (0-0.5); Hematocrit 45.6 % (35-47); Hemoglobin 14.6 gm/dl (12.0-16.0); Lymphocyte (Absolute #) 1.84 (1.0-4.6); Lymphocytes % 22.5 % (24.0-44.0); Mean Cell Volume 89.2 fl (78-100); Mean Corpuscular Hemoglobin 28.6 pg (26-32); Mean Platelet Volume 10.4 fl (7.5-11.0); Monocyte (Absolute #) 0.81 (0.0-1.3); Monocytes % 9.9 % (0.0-12.0); Neutrophil % 64.8 % (36.0-66.0); Platelet Count 190 K/mm3 (150-450); Red Blood Count 5.11 M/mm3 (4.1-5.4); White Blood Count 8.2 K/mm3 (4.0-10.5)
[2020-11-06 18:49] LABS: INR 1.03 (0.8-3.0); PROTIME 11.6 SECONDS (9.95-12.35)
[2020-11-06 19:05] LABS: ALBUMIN 4.3 g/dL (3.5-5.0); ANION GAP 11.7 MEQ/L (5-15); BILIRUBIN,TOTAL 0.5 mg/dL (0.2-1.3); Calcium 9.6 mg/dL (8.4-10.2); Creatinine 1 1.21 mg/dL (0.52-1.04); EST GLOMERULAR FILTRATION RATE 45.4 ML/MIN; Potassium 4.6 mmol/L (3.5-5.1); Total Protein 7.1 g/dL (6.3-8.2)
[2020-11-06] MEDS ORDERED: Sodium Chloride 0.9% 500 ML 500 ML IV ONE ×2 (19:12→19:14)
[2020-11-06 22:55] VITALS: BP 152/75; PULSE 74; O2SAT 95
[2020-11-06] MEDS ORDERED: TYLENOL EXTRA STRENGTH 500 MG PO STA (22:59)
[2020-11-06] MEDS ORDERED: TYLENOL EXTRA STRENGTH 500 MG ONE (23:00)
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
== END 2020-11-06 23:05 | disposition home or self-care (01) ==
LOC: ED 18:14
DX: S22.20XA Unspecified fracture of sternum, initial encounter for closed fracture (principal); I25.10 Atherosclerotic heart disease of native coronary artery without angina pectoris; I10 Essential (primary) hypertension; E11.9 Type 2 diabetes mellitus without complications; E03.9 Hypothyroidism, unspecified; Z79.899 Other long term (current) drug therapy; Z79.891 Long term (current) use of opiate analgesic; I25.2 Old myocardial infarction
CPT/HCPCS: 36000; 36415; 71260; 80053; 83880; 84484; 85025; 85379; 85610; 93005; 93041; 94760; 96360; 96374; 96375; 99285; J2270; J2405; A9270-GY

== ENCOUNTER → 2020-11-06 | Emergency (ER) | payer MEDICARE ==
[~2020-11-06] MED LIST changes: +NARCAN 2 MG/2 ML ONE; -SUBLIMAZE 100 MCG/2 ML IV ONE; -Sodium Chloride 0.9% 1000 ML 1,000 ML IV SCH; -Sodium Chloride 0.9% 1000 ML 1,000 ML ONE; -VERSED 5 MG/5 ML IV ONE
== END ==
LOC: ED 18:11
DX: Z53.9 Procedure and treatment not carried out, unspecified reason (principal)

== ENCOUNTER 2022-11-13 12:10 | Emergency (ER) | payer MEDICARE ==
--- NOTE | 2022-11-13 12:52 | ERPHSYRPT ---
- History of Present Illness Source: patient Exam Limitations: no limitations Method of Injury: fall Occurred: just prior to arrival, this morning Where Injury Occurred: street Loss of Consciousness: no loss of consciousness Pain Location: left, hand, knee Severity of Pain-Max: mild Severity of Pain-Current: mild Modifying Factors: Improves With: nothing Associated Symptoms: No abdominal pain, No back pain, No confusion, No chest pain, No dizziness, No extremity injury, No nausea, No ringing in ears, No slurred speech Hx Tetanus, Diphtheria Vaccination/Date Given: No Hx Influenza Vaccination/Date Given: No Hx Pneumococcal Vaccination/Date Given: No <DAVID STRAUSS - Last Filed: 11/13/22 13:29> <JASON PLUMMER - Last Filed: 11/13/22 14:52> - History of Present Illness Physician History: This is an 82-year-old patient s/p fall.Presenting to the ED for evaluation s/p fall.. Patient reports that she is on aspirin and Plavix. -States that she was getting out of her car today when she tripped and fell on the sidewalk. -Denies loss of conscious. -Denies head injury or neck pain -Dates that she did hurt her knees and her left wrist the pain at a 2/10. -She was able to walk after the injury. -Denies history of recurrent falls. (DAVID STRAUSS) Allergies/Adverse Reactions: No Known Drug Allergies Allergy (Verified 11/13/22 13:01) Home Medications: Aspirin 81 mg PO 1700 12/15/16 [History] Levothyroxine Sodium 50 Mcg [Synthroid 50 Mcg] 75 mcg PO DAILY 12/15/16 [H istory] Nebivolol HCl [Bystolic] 5 mg PO BID 12/15/16 [History] Sucralfate 1 gm [Carafate 1 GM] 1 gm PO BID 12/15/16 [History] Calcium Carbonate/Vitamin D3 [Caltrate 600 Plus D3 Tablet] 1 each PO BID 09/08/18 [History] Clopidogrel Bisulfate [Clopidogrel] 75 mg PO LUNCH 09/08/18 [History] Cyanocobalamin (Vitamin B-12) [Vitamin B-12] 500 mcg PO LUNCH 09/08/18 [History] Hydrocodone/Acetaminophen [Hydrocodone-Acetamin 5-325 mg ###] 1 tab PO Q4-6HPRN PRN 09/08/18 [History] Magnesium Chloride [Slow-Mag] 143 mg PO HS 09/08/18 [History] PANTOPRAZOLE 40 mg Tablet [Protonix 40MG Tablet] 40 mg PO QAM 09/08/18 [History] Prochlorperazine Maleate 10 mg [Compazine 10 mg] 10 mg PO UD PRN 09/08/18 [History] Simvastatin 20 mg PO HS 09/08/18 [History] Diphenoxylate HCl/Atropine [Lomotil] 1 tab PO DAILY 04/03/20 [History] Empagliflozin [Jardiance] 25 mg PO DAILY 04/03/20 [History] Ranolazine 500 MG [Ranexa 500 MG] 1 tab PO DAILY 04/03/20 [History] glipiZIDE [Glucotrol] 10 mg PO BID 04/03/20 [History] Sitagliptin Phosphate 50 MG [Januvia 50 MG] 50 mg PO BID 11/13/22 [History ] - Review of Systems Constitutional: No Fever, No Chills, No Fatigue Eyes: No Discharge, No Eye Pain, No Eye Redness Ears, Nose, & Throat: No Ear Pain, No Ear Discharge, No Hearing Changes, No Tinnitus, No Sinus Drainage, No Mouth Pain Respiratory: No Cough, No Dyspnea, No Dyspnea on Exertion (VEGA) Cardiac: No Chest Pain, No Palpitations, No Syncope Abdominal/Gastrointestinal: No Abdominal Pain, No Nausea, No Vomiting, No Diarrhea Genitourinary Symptoms: No Dysuria, No Frequency, No Hematuria, No Urinary Retention Musculoskeletal: No Symptoms, Joint Pain Skin: Other (skin tear) Neurological: No Symptoms Psychological: No Symptoms All Other Systems: Reviewed and Negative <DAVID STRAUSS - Last Filed: 11/13/22 13:29> - Past Medical History Pertinent Past Medical History: Yes Neurological History: No Pertinent History ENT History: Other Cardiac History: Angina, High Cholesterol, Hypertension, Myocardial Infarction ([place]) Respiratory History: No Pertinent History Endocrine Medical History: Diabetes Type II, Hypothyroidism Musculoskeletal History: Arthritis, Other GI Medical History: GERD, Other History: No Pertinent History Psycho-Social History: Anxiety Female Reproductive Disorders: No Pertinent History Other Medical History: hx fx L wrist, L ankle, Esophageal cancer, wears glasses to read, melanoma of left arm - Past Surgical History Past Surgical History: Yes Neuro Surgical History: No Pertinent History Cardiac: Cardiac Catheterization, Cardiac Stent Respiratory: No Pertinent History Gastrointestinal: Cholecystectomy Genitourinary: No Pertinent History Musculoskeletal: No Pertinent History Female Surgical History: No Pertinent History Other Surgical History: skin cancer surgical removal L F/A, CVL port placed, endoscopic US - x3 times. radiation and chemotherapy, D/C, Throat stents 6 weeks for scarring due to esophageal cancer - Social History Smoking Status: Never smoker Exposure to second hand smoke: No Drug Use: none Patient Lives Alone: Yes <DAVID STRAUSS - Last Filed: 11/13/22 13:29> Physical Exam - [place] Coma Score Best Eye Response ([place]): (4) open spontaneously Best Verbal Response ([place]): (5) oriented Best Motor Response ([place]): (6) obeys commands [place] Total: 15 - Physical Exam General Appearance: no apparent distress, thin, No obese Head Injury: no evidence of injury, No Garcia's Sign, No contusions, No ecchymosis Eye Exam: bilateral eye: normal inspection, PERRL, EOMI ENT Exam: airway nml, No evidence of ENT injury, No dental injury, No midface instability, No hemotympanum Neck Exam: supple, trachea midline, full range of motion, normal inspection, No tenderness Respiratory/Chest Exam: chest tenderness, normal breath sounds, No respiratory distress, No rib tenderness Cardiovascular Exam: normal heart sounds, regular rate/rhythm, normal peripheral pulses, No murmur Gastrointestinal Exam: soft, normal bowel sounds, No tenderness, No distention Back Exam: normal inspection, normal range of motion, No CVA tenderness Extremity Exam: normal inspection (there is bruising of b/l knees, left hand has a skin tear with bruising of MCP 5th digit) Neurologic Exam: alert, oriented x 3, cooperative, 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, normal mood/affect, sensation nml Skin Exam: normal color, warm SpO2 Interpretation: normal O2 Delivery: Room Air <DAVID STRAUSS - Last Filed: 11/13/22 13:29> - Nursing Vital Signs Nursing Vital Signs: Initial Vital Signs Temperature 98.0 F 11/13/22 12:30 Pulse Rate 63 11/13/22 12:30 Blood Pressure 153/71 11/13/22 12:30 O2 Sat by Pulse Oximetry 98 11/13/22 12:30 Pain Scale Pain Intensity 2 Procedures - Laceration/Wound Repair Left Anterior Medial Distal Volar Hand Time of Procedure: 14:45 Wound Location: Left, hand Wound Length (cm): 1.5 Wound's Depth, Shape: superficial, flap Wound Explored: no foreign body noted Irrigated: Yes Hibiclens Prep: Yes Wound Debrided: minimal (skin tear removed w/ iris scissors) <JASON PLUMMER - Last Filed: 11/13/22 14:52> - Laceration/Wound Repair Left Anterior Medial Distal Volar Hand Progress: 11/13/22 14:46 Tolerated procedure well, xeroform placed over wound. (JASON PLUMMER) Ordered Tests: Active Orders 24 hr Category Date Time Status CERVICAL SPINE WO CONTRAST [CT] Stat Exams 11/13/22 12:43 Completed CHEST 1 VIEW (PORTABLE) Stat Exams 11/13/22 12:43 Completed FACIAL BONES WO CONTRAST [CT] Stat Exams 11/13/22 12:52 Completed HAND (2 VIEW) Stat Exams 11/13/22 12:44 Completed HEAD WITHOUT CONTRAST [CT] Stat Exams 11/13/22 12:43 Completed KNEE (3 VIEWS) Stat Exams 11/13/22 12:44 Completed PELVIS (1 OR 2 VIEWS) Stat Exams 11/13/22 12:43 Completed CBC W DIFF Stat Lab 11/13/22 12:42 Completed CMP Stat Lab 11/13/22 12:42 Completed PROTIME WITH INR Stat Lab 11/13/22 12:42 Completed UA W/RFX UR CULTURE Stat Lab 11/13/22 13:45 Completed Lab/Rad Data: Laboratory Result Diagrams 11/13/22 12:42 11/13/22 12:42 Laboratory Results 11/13/22 11/13/22 11/13/22 Range/Units 13:45 12:42 12:42 WBC (4.0-10.5) x10^3/uL RBC (4.1-5.4) x10^6/uL Hgb (12.0-16.0) g/dL Hct (35-47) % MCV (78-100) fL MCH (26-32) pg MCHC (32-36) g/dL RDW (11.5-14.0) % Plt Count (150-450) x10^3/uL MPV (7.5-11.0) fL Gran % (36.0-66.0) % Immature Gran % (Auto) (0.00-0.4) % Nucleat RBC Rel Count (0.00-0.1) % Eos # (Auto) (0-0.5) x10^3/uL Immature Gran # (Auto) (0.00-0.03) x10^3u/L Absolute Lymphs (auto) (1.0-4.6) x10^3/uL Absolute Monos (auto) (0.0-1.3) x10^3/uL Absolute Nucleated RBC (0.00-0.01) x10^3u/L Lymphocytes % (24.0-44.0) % Monocytes % (0.0-12.0) % Eosinophils % (0.00-5.0) % Basophils % (0.0-0.4) % Absolute Granulocytes (1.4-6.9) x10^3/uL Basophils # (0-0.4) x10^3/uL PT 10.6 (9.4-12.5) SECONDS INR 0.97 (0.8-3.0) Sodium 139 (137-145) mmol/L Potassium 4.1 (3.5-5.1) mmol/L Chloride 97 L (98-107) mmol/L Carbon Dioxide 34 H (22-30) mmol/L Anion Gap 12.0 (5-15) MEQ/L BUN 27 H (7-17) mg/dL Creatinine 1.11 H (0.52-1.04) mg/dL Estimated GFR 49.9 ML/MIN Glucose 197 H (74-106) mg/dL Calcium 9.8 (8.4-10.2) mg/dL Total Bilirubin 0.70 (0.2-1.3) mg/dL AST 24 (14-36) U/L ALT 19 (0-35) U/L Alkaline Phosphatase 65 (38-126) U/L Serum Total Protein 7.6 (6.3-8.2) g/dL Albumin 4.5 (3.5-5.0) g/dL Urine Color Yellow (Yellow) Urine Appearance Clear (Clear) Urine pH 7.0 (4.6-8.0) Ur Specific [place] >=1.030 A (1.005-1.030) Urine Protein Negative (Negative) Urine Glucose (UA) >=1000 A (Negative) mg/dL Urine Ketones Negative (Negative) Urine Blood Negative (Negative) Urine Nitrite Negative (Negative) Urine Bilirubin Negative (Negative) Urine Urobilinogen 0.2 (0.2) mg/dL Ur Leukocyte Esterase Small A (Negative) U Hyaline Cast (Auto) NONE SEEN (0-2) /LPF Urine Microscopic RBC 0-2 (0-5) /HPF Urine Microscopic WBC 11-20 A (0-5) /HPF Ur Epithelial Cells Rare (None Seen) /HPF Urine Bacteria None Seen (None Seen) /HPF Urine Culture Reflexed NO (NO) 11/13/22 Range/Units 12:42 WBC 10.6 H (4.0-10.5) x10^3/uL RBC 5.39 (4.1-5.4) x10^6/uL Hgb 16.3 H (12.0-16.0) g/dL Hct 50.1 H (35-47) % MCV 92.9 (78-100) fL MCH 30.2 (26-32) pg MCHC 32.5 (32-36) g/dL RDW 12.7 (11.5-14.0) % Plt Count 158 (150-450) x10^3/uL MPV 10.3 (7.5-11.0) fL Gran % 74.2 H (36.0-66.0) % Immature Gran % (Auto) 0.5 H (0.00-0.4) % Nucleat RBC Rel Count 0.0 (0.00-0.1) % Eos # (Auto) 0.20 (0-0.5) x10^3/uL Immature Gran # (Auto) 0.05 H (0.00-0.03) x10^3u/L Absolute Lymphs (auto) 1.69 (1.0-4.6) x10^3/uL Absolute Monos (auto) 0.74 (0.0-1.3) x10^3/uL Absolute Nucleated RBC 0.00 (0.00-0.01) x10^3u/L Lymphocytes % 15.9 L (24.0-44.0) % Monocytes % 7.0 (0.0-12.0) % Eosinophils % 1.9 (0.00-5.0) % Basophils % 0.5 (0.0-0.4) % Absolute Granulocytes 7.91 H (1.4-6.9) x10^3/uL Basophils # 0.05 (0-0.4) x10^3/uL PT (9.4-12.5) SECONDS INR (0.8-3.0) Sodium (137-145) mmol/L Potassium (3.5-5.1) mmol/L Chloride (98-107) mmol/L Carbon Dioxide (22-30) mmol/L Anion Gap (5-15) MEQ/L BUN (7-17) mg/dL Creatinine (0.52-1.04) mg/dL Estimated GFR ML/MIN Glucose (74-106) mg/dL Calcium (8.4-10.2) mg/dL Total Bilirubin (0.2-1.3) mg/dL AST (14-36) U/L ALT (0-35) U/L Alkaline Phosphatase (38-126) U/L Serum Total Protein (6.3-8.2) g/dL Albumin (3.5-5.0) g/dL Urine Color (Yellow) Urine Appearance (Clear) Urine pH (4.6-8.0) Ur Specific [place] (1.005-1.030) Urine Protein (Negative) Urine Glucose (UA) (Negative) mg/dL Urine Ketones (Negative) Urine Blood (Negative) Urine Nitrite (Negative) Urine Bilirubin (Negative) Urine Urobilinogen (0.2) mg/dL Ur Leukocyte Esterase (Negative) U Hyaline Cast (Auto) (0-2) /LPF Urine Microscopic RBC (0-5) /HPF Urine Microscopic WBC (0-5) /HPF Ur Epithelial Cells (None Seen) /HPF Urine Bacteria (None Seen) /HPF Urine Culture Reflexed (NO) <DAVID STRAUSS - Last Filed: 11/13/22 13:29> - Progress Progress: improved Counseled pt/family regarding: lab results, diagnosis, rad results <JASON PLUMMER - Last Filed: 11/13/22 14:52> - Progress Progress Note: 11/13/22 12:57 care handed over to at shift change (DAVID STRAUSS) Wound debrided and dressing placed. Labs and imaging showed no signs of acute illness or injury. Patient has no neurologic sxs and exam wnl. Discussed return precautions w/ patient such as [place], focal weakness, speech difficulties or dysphagia. Advised patient to ice her forehead and knee 4-5 times QD for 10 min. Tylenol 1000mg BID. Hold ASA, Plavix for 3 days. 11/13/22 14:47 (JASON PLUMMER) Medical Desision Making - Diagnostic Testing Diagnostic test were ordered, analyzed, and reviewed by me: Yes Radiological Interpretation: Reviewed by me - Risk of complications The pt has a mod risk of morbidity or mortality based on: Need for minor surgical intervention in patient with know risk factors <JASON PLUMMER - Last Filed: 11/13/22 14:52> <DAVID STRAUSS - Last Filed: 11/13/22 13:29> - Departure Departure Disposition: Home Critical Care Time: No <JASON PLUMMER - Last Filed: 11/13/22 14:52> - Departure Clinical Impression: Fall, Scalp hematoma, Hand abrasion Condition: Good Referrals: CHANI SPANN [Primary Care Provider] - Follow up/PCP as directed Instructions: Preventing Falls in Older Adults
--- NOTE | 2022-11-13 13:21 | XRAY ---
Indication: Left supraorbital knot following fall. Multiple contiguous axial images obtained through the head without contrast. Comparison: September 17, 2010 Age-appropriate global atrophy and minimal periventricular degenerative micro-ischemia bilaterally. Left basal ganglia demonstrates new 1.1 cm remote infarct. No acute intracranial hemorrhage, abnormal extra-axial fluid collection, or mass effect. Fourth ventricle is midline without hydrocephalus. New small left forehead scalp hematoma. Bony calvarium intact. Visualized paranasal sinuses are clear. Impression: 1. New left forehead scalp hematoma. No underlying fracture or acute intracranial abnormalities. 2. Atrophy and degenerative micro-ischemia within normal limits for patient's age. Small old infarct left basal ganglia.
--- NOTE | 2022-11-13 13:22 | XRAY ---
Indication: Left supraorbital knot following fall. Multiple contiguous axial images obtained through the facial bones. Sagittal and coronal reformatted images obtained. Comparison: None Patient is edentulous. Osseous structures demineralized. Small left forehead scalp hematoma. No acute fracture, suspicious bony lesions, or radiopaque foreign body. Orbits including roof, garcia, and floors intact.. Paranasal sinuses and nasal passages are clear. Remaining visualized noncontrasted soft tissues are unremarkable. CT head and CT cervical spine reported separately. Impression: Osteopenia and left forehead scalp hematoma. Remaining CT facial bones negative.
--- NOTE | 2022-11-13 13:24 | XRAY ---
Indication: Left supraorbital knot following fall. Multiple contiguous axial images obtained through the cervical spine. Sagittal and coronal reformatted images obtained. Comparison: None Osseous structures demineralized. Axial images negative for acute fracture, suspicious bony lesions, or spinal canal stenosis. Moderate C5-C7 degenerative endplate spurring and mild left C3-C6 degenerative facet arthropathy. Sagittal and coronal reformatted images demonstrates normal alignment. C5-C7 disc space loss. No acute compression fracture, subluxation, or jumped facet. Normal appearing craniocervical junction. Visualized noncontrasted soft tissues unremarkable. Lung apices demonstrates minimal peripheral fibrosis/scarring and tiny left apical calcified granuloma. CT head and CT facial bones reported separately. Impression: 1. Osteopenia and multilevel degenerative changes. 2. Remaining CT cervical spine is negative.
--- NOTE | 2022-11-13 13:28 | XRAY ---
Indication: Status post fall. Comparison: April 06, 2020 Portable chest inflated again with a few bilateral calcified granulomas, increased in number. No focal infiltrate, consolidation, or large effusion. Heart not enlarged again with left Port-A-Cath. Esophageal stent graft has been removed. Bony thorax intact again with osteopenia, degenerative changes, and T7-T11 kyphoplasty. Impression: Continued nonacute chest with chronic features.
--- NOTE | 2022-11-13 13:31 | XRAY ---
Indication: Status post fall. Comparison: None AP pelvis demonstrates osteopenia, incompletely visualized lower lumbar degenerative changes, and right inguinal surgical clips. No other bony, articular, or soft tissue abnormalities..
--- NOTE | 2022-11-13 13:31 | XRAY ---
Indication: Status post fall. Comparison: None 2 view left hand demonstrates osteopenia, mild degenerative changes all IP/MCP joints, mild 1st metacarpal multangular degenerative changes, radiocarpal joint space loss, and old nonunited ulnar styloid fracture. No other bony, articular, or soft tissue abnormalities.
--- NOTE | 2022-11-13 13:33 | XRAY ---
Indication: Status post fall. Comparison: None 3 view left knee demonstrates osteopenia, faint lateral joint degenerative chondrocalcinosis, nonspecific tiny effusion, and mild scattered vascular calcifications. No other bony, articular, or soft tissue abnormalities.
[2022-11-13 13:43] LABS: Absolute Neutrophil Ct (ANC) 7.91 x10^3/uL (1.4-6.9); BASOPHIL % 0.5 % (0.0-0.4); Basophil (Absolute #) 0.05 x10^3/uL (0-0.4); Eosinophil % 1.9 % (0.00-5.0); Hematocrit 50.1 % (35-47); Hemoglobin 16.3 g/dL (12.0-16.0); IMMATURE GRAN # 0.05 x10^3u/L (0.00-0.03); IMMATURE GRAN % 0.5 % (0.00-0.4); Lymphocyte (Absolute #) 1.69 x10^3/uL (1.0-4.6); Lymphocytes % 15.9 % (24.0-44.0); Mean Cell Volume 92.9 fL (78-100); Mean Corpuscular Hemoglobin 30.2 pg (26-32); Mean Corpuscular Hgb Concent. 32.5 g/dL (32-36); Mean Platelet Volume 10.3 fL (7.5-11.0); Monocyte (Absolute #) 0.74 x10^3/uL (0.0-1.3); Neutrophil % 74.2 % (36.0-66.0); Platelet Count 158 x10^3/uL (150-450); Red Blood Count 5.39 x10^6/uL (4.1-5.4); Red Cell Distribution Width 12.7 % (11.5-14.0); White Blood Count 10.6 x10^3/uL (4.0-10.5)
[2022-11-13 13:56] LABS: Appearance Clear (Clear); Bacteria None Seen /HPF (None Seen); Bilirubin Negative (Negative); Blood Negative (Negative); Epithelial Cells Rare /HPF (None Seen); Glucose, Urine >=1000 mg/dL (Negative); Hyaline Casts NONE SEEN /LPF (0-2); Ketones Negative (Negative); Leukocyte Esterase Small (Negative); Nitrite Negative (Negative); Protein,Urine Dip Negative (Negative); RBC 0-2 /HPF (0-5); Specific Gravity >=1.030 (1.005-1.030); Urobilinogen 0.2 mg/dL (0.2)
[2022-11-13 13:58] LABS: ADD URINE CULTURE? NO (NO)
[2022-11-13 14:00] LABS: INR 0.97 (0.8-3.0); PROTIME 10.6 SECONDS (9.4-12.5)
[2022-11-13 14:01] LABS: ALBUMIN 4.5 g/dL (3.5-5.0); BILIRUBIN,TOTAL 0.7 mg/dL (0.2-1.3); Calcium 9.8 mg/dL (8.4-10.2); Creatinine 1 1.11 mg/dL (0.52-1.04); EST GLOMERULAR FILTRATION RATE 49.9 ML/MIN; Potassium 4.1 mmol/L (3.5-5.1); Total Protein 7.6 g/dL (6.3-8.2)
[2022-11-13 15:00] VITALS: BP 146/68; PULSE 62; O2SAT 96
== END 2022-11-13 15:07 | disposition home or self-care (01) ==
LOC: ED 12:10
DX: S00.03XA Contusion of scalp, initial encounter (principal); S60.512A Abrasion of left hand, initial encounter; W01.0XXA Fall on same level from slipping, tripping and stumbling without subsequent striking against object, initial encounter; Y92.480 Sidewalk as the place of occurrence of the external cause; R51.9 Headache, unspecified; M25.561 Pain in right knee; M25.562 Pain in left knee; E11.9 Type 2 diabetes mellitus without complications; E78.5 Hyperlipidemia, unspecified; I10 Essential (primary) hypertension; Z79.02 Long term (current) use of antithrombotics/antiplatelets; Z79.84 Long term (current) use of oral hypoglycemic drugs; Z79.899 Other long term (current) drug therapy
CPT/HCPCS: 36415; 70450; 70486; 71045; 72125; 72170; 73120; 73562; 80053; 81001; 85025; 85610; 99284

== ENCOUNTER 2023-12-29 18:53 | Observation (INO) | payer MEDICARE ==
--- NOTE | 2023-12-29 19:32 | ERPHSYRPT ---
- History of Present Illness Time Seen by Provider: 12/29/23 19:28 Exam Limitations: no limitations Patient Subjective Stated Complaint: pt here for cough and fever today, she recently went on a trip and was been coughing since. pt denies any co's at present time Triage Nursing Assessment: pt alert, arrived per wc, resp easy, congested sounding cough, fever, moves all ext well. Physician History: Patient is an 83-year-old female history of diabetes hypercholesterolemia coronary artery disease, [place] cardiac stents presents to our ED for evaluation of shortness of breath cough fever. Upon arrival to our ED patient was hypoxic. Patient's friend is at bedside and reports that patient went on a long road trip from [place] to [facility] and back to [place]. Patient's symptoms developed during her trip. Symptoms have been progressive. Symptoms are worse with exertion. Symptoms improved with rest. Patient denies chest pain. No nausea no vomiting no diaphoresis no rash. No diarrhea. Patient states she otherwise feels well. She voices no other complaints or concerns at this time. Portions of this note were created with voice recognition technology. There may be grammatical, spelling, punctuation or sound alike errors Timing/Duration: today Activities at Onset: activity Severity of Dyspnea-Max: moderate Severity of Dyspnea-Current: moderate Possible Cause: no prior episodes Modifying Factors: Improves With: activity Associated Symptoms: cough, No calf pain Allergies/Adverse Reactions: No Known Drug Allergies Allergy (Verified 11/13/22 13:01) Home Medications: Aspirin 81 mg PO DAILY 12/15/16 [History] Levothyroxine Sodium 50 Mcg [Synthroid 50 Mcg] 75 mcg PO DAILY 12/15/16 [H istory] Nebivolol HCl [Bystolic] 5 mg PO BID 12/15/16 [History] Sucralfate 1 gm [Carafate 1 GM] 1 gm PO BID 12/15/16 [History] Calcium Carbonate/Vitamin D3 [Caltrate 600 Plus D3 Tablet] 1 each PO BID 09/08/18 [History] Clopidogrel Bisulfate [Clopidogrel] 75 mg PO DAILY 09/08/18 [History] Cyanocobalamin (Vitamin B-12) [Vitamin B-12] 500 mcg SL DAILY 09/08/18 [History] Hydrocodone/Acetaminophen [Hydrocodone-Acetamin 5-325 mg ###] 1 tab PO Q4-6HPRN PRN 09/08/18 [History] Magnesium Chloride [Slow-Mag] 143 mg PO HS 09/08/18 [History] PANTOPRAZOLE 40 mg Tablet [Protonix 40MG Tablet] 40 mg PO BID 09/08/18 [History] Prochlorperazine Maleate 10 mg [Compazine 10 mg] 10 mg PO UD PRN 09/08/18 [History] Simvastatin 20 mg PO HS 09/08/18 [History] Diphenoxylate HCl/Atropine [Lomotil] 1 tab PO Q12H PRN PRN 04/03/20 [History] Empagliflozin [Jardiance] 25 mg PO DAILY 04/03/20 [History] Ranolazine 500 MG [Ranexa 500 MG] 1 tab PO DAILY 04/03/20 [History] glipiZIDE [Glucotrol] 10 mg PO BID 04/03/20 [History] Sitagliptin Phosphate 50 MG [Januvia 50 MG] 50 mg PO BID 11/13/22 [ History] Metformin HCl [Metformin HCl ER] 750 mg PO BID 12/29/23 [History] Hx Tetanus, Diphtheria Vaccination/Date Given: No Hx Influenza Vaccination/Date Given: No Hx Pneumococcal Vaccination/Date Given: No Travel Risk - International Travel Have you traveled outside of the country in past 3 weeks: No - Emerging Infectious Disease Are you exhibiting symptoms associated with any current EIDs: Yes Symptoms: Cough: New Onset - Review of Systems Constitutional: No Symptoms, No Fever, No Chills Eyes: No Symptoms Ears, Nose, & Throat: No Symptoms Respiratory: No Symptoms, No Cough, No Dyspnea Cardiac: No Symptoms, No Chest Pain, No Edema, No Syncope Abdominal/Gastrointestinal: No Symptoms, No Abdominal Pain, No Nausea, No Vom iting, No Diarrhea Genitourinary Symptoms: No Symptoms, No Dysuria Musculoskeletal: No Symptoms, No Back Pain, No Neck Pain Skin: No Symptoms, No Rash Neurological: No Symptoms, No Dizziness, No Focal Weakness, No Sensory Changes Psychological: No Symptoms Endocrine: No Symptoms Hematologic/Lymphatic: No Symptoms Immunological/Allergic: No Symptoms All Other Systems: Reviewed and Negative - Past Medical History Pertinent Past Medical History: Yes Neurological History: No Pertinent History ENT History: Other Cardiac History: Angina, High Cholesterol, Hypertension, Myocardial Infarction (RI) Respiratory History: No Pertinent History Endocrine Medical History: Diabetes Type II, Hypothyroidism Musculoskeletal History: Arthritis, Other GI Medical History: GERD, Other History: No Pertinent History Psycho-Social History: Anxiety Female Reproductive Disorders: No Pertinent History Other Medical History: hx fx L wrist, L ankle, Esophageal cancer, wears glasses to read, melanoma of left arm - Past Surgical History Past Surgical History: Yes Neuro Surgical History: No Pertinent History Cardiac: Cardiac Catheterization, Cardiac Stent Respiratory: No Pertinent History Gastrointestinal: Cholecystectomy Genitourinary: No Pertinent History Musculoskeletal: No Pertinent History Female Surgical History: No Pertinent History Other Surgical History: skin cancer surgical removal L F/A, CVL port placed, endoscopic US - x3 times. radiation and chemotherapy, D/C, Throat stents 6 weeks for scarring due to esophageal cancer - Social History Smoking Status: Never smoker Exposure to second hand smoke: No Drug Use: none Patient Lives Alone: Yes - Nursing Vital Signs Nursing Vital Signs: Initial Vital Signs Temperature 97.8 F 12/29/23 19:00 Pulse Rate 88 12/29/23 19:00 Respiratory Rate 18 12/29/23 19:00 Blood Pressure 152/75 12/29/23 19:00 O2 Sat by Pulse Oximetry 87 L 12/29/23 19:00 Pain Scale Pain Intensity 0 - Physical Exam General Appearance: no apparent distress, alert Eye Exam: PERRL/EOMI, eyes nml inspection Ears, Nose, Throat Exam: hearing grossly normal, normal ENT inspection, normal pharynx Neck Exam: normal inspection, supple, full range of motion Respiratory Exam: diminished breath sounds, rhonchi, wheezing Cardiovascular/Chest Exam: normal heart sounds, regular rate/rhythm Abdominal/Gastrointestinal Exam: soft, No tenderness, No distention, No mass Extremity Exam: non-tender, normal range of motion, normal inspection, no calf t enderness, no pedal edema Neurologic Exam: alert, oriented x 3, cooperative, hide puller II-XII nml as tested, sensation nml, No motor deficits Skin Exam: normal color, warm, No dry Lymphatic Exam: No adenopathy SpO2 Interpretation: normal SpO2: 95 O2 Delivery: Room Air - Course Nursing assessment & vital signs reviewed: Yes - CT Exams Chest CT Interpretation: Tele-radiologist Report (Negative PE. New mild patchy right middle lobe airspace disease) Ordered Tests: Active Orders 24 hr Category Date Time Status Auto Suspension And Steering Mechanic STAT Care 12/29/23 19:24 Active EKG-ER Only STAT Care 12/29/23 19:23 Active IV Insertion STAT Care 12/29/23 19:23 Active Oxygen-ED Only Nasal Cannula 2 lpm Care 12/29/23 21:08 Active Pulse Oximetry (ED) STAT Care 12/29/23 19:23 Active CHEST WITH CONTRAST [CT] Stat Exams 12/29/23 20:49 Taken BLOOD CULTURE Stat Lab 12/29/23 19:50 Received CBC W DIFF Stat Lab 12/29/23 19:40 Completed CMP Stat Lab 12/29/23 19:40 Completed CULTURE,URINE Stat Lab 12/29/23 19:45 Received D-DIMER QUANTITATIVE Stat Lab 12/29/23 19:40 Completed Lactic Acid Stat Lab 12/29/23 19:23 Completed NT PRO BNPII Stat Lab 12/29/23 19:40 Completed TROPONIN Q4H Lab 12/29/23 19:40 Completed TROPONIN Q4H Lab 12/29/23 21:42 Completed TROPONIN Q4H Lab 12/30/23 03:30 Ordered UA W/RFX UR CULTURE Stat Lab 12/29/23 19:45 Completed Respiratory Therapy Assessment DAILY RT 12/29/23 20:00 Active Transfer Order Routine Transfer 12/29/23 Ordered Medication Summary Discontinued Medications Generic Name Dose Route Start Last Admin Trade Name Freq PRN Reason Stop Dose Admin Albuterol/Ipratropium 3 ml 12/29/23 19:23 12/29/23 19:56 Ipratropium/Albuterol Sulfate 3 Ml Ampul.Neb IH 12/29/23 19:24 3 ml STAT ONE Administration Albuterol/Ipratropium Confirm 12/29/23 19:48 Ipratropium/Albuterol Sulfate 3 Ml Ampul.Neb Administered 12/29/23 19:49 Dose 3 ml IH .STK-MED ONE Methylprednisolone Sodium 0 mg 12/29/23 19:23 12/29/23 19:53 Succinate 125 mg/ Sterile IV 12/29/23 19:24 125 mg Water 2 ml STAT ONE Administration Ceftriaxone Sodium 2 gm in 100 mls @ 200 mls/hr 12/29/23 19:23 12/29/23 20:24 Rocephin 2 Gm/100 Ml Nacl IV 12/29/23 19:52 Infused STAT ONE Infusion Azithromycin 500 mg in 250 mls @ 250 mls/hr 12/29/23 19:23 12/29/23 21:36 Zithromax 500 Mg/ 250 Ml Nacl Premix IV 12/29/23 20:22 Infused STAT STA Infusion Ceftriaxone Sodium Confirm 12/29/23 19:46 Rocephin 2 Gm/100 Ml Nacl Administered 12/29/23 19:47 Dose 2 gm in 100 mls @ ud IV .STK-MED ONE Azithromycin Confirm 12/29/23 20:34 Zithromax 500 Mg/ 250 Ml Nacl Premix Administered 12/29/23 20:35 Dose 500 mg in 250 mls @ ud IV .STK-MED ONE Methylprednisolone Sodium Succinate Confirm 12/29/23 19:46 Methylprednis Sod Succ 125 Mg/2 Ml Vial Administered 12/29/23 19:47 Dose 125 mg .ROUTE .STK-MED ONE Sterile Water Confirm 12/29/23 19:46 Water For Injection,Sterile 10 Ml Vial Administered 12/29/23 19:47 Dose 10 ml IJ .STK-MED ONE Lab/Rad Data: Laboratory Result Diagrams 12/29/23 19:40 12/29/23 19:40 Laboratory Results 12/29/23 12/29/23 12/29/23 Range/Units 21:42 19:50 19:45 WBC (4.0-10.5) x10^3/uL RBC (4.1-5.4) x10^6/uL Hgb (12.0-16.0) g/dL Hct (35-47) % MCV (78-100) fL MCH (26-32) pg MCHC (32-36) g/dL RDW (11.5-14.0) % Plt Count (150-450) x10^3/uL MPV (7.5-11.0) fL Gran % (36.0-66.0) % Immature Gran % (Auto) (0.00-0.4) % Nucleat RBC Rel Count (0.00-0.1) % Eos # (Auto) (0-0.5) x10^3/uL Immature Gran # (Auto) (0.00-0.03) x10^3u/L Absolute Lymphs (auto) (1.0-4.6) x10^3/uL Absolute Monos (auto) (0.0-1.3) x10^3/uL Absolute Nucleated RBC (0.00-0.01) x10^3u/L Lymphocytes % (24.0-44.0) % Monocytes % (0.0-12.0) % Eosinophils % (0.00-5.0) % Basophils % (0.0-0.4) % Absolute Granulocytes (1.4-6.9) x10^3/uL Basophils # (0-0.4) x10^3/uL D-Dimer (0.0-0.50) mg/L Sodium (135-145) mmol/L Potassium (3.5-5.1) mmol/L Chloride (98-107) mmol/L Carbon Dioxide (22-30) mmol/L Anion Gap (5-15) MEQ/L BUN (7-17) mg/dL Creatinine (0.52-1.04) mg/dL Estimated GFR ML/MIN Glucose (74-106) mg/dL Lactic Acid (0.4-2.0) Calcium (8.4-10.2) mg/dL Total Bilirubin (0.2-1.3) mg/dL AST (14-36) U/L ALT (0-35) U/L Alkaline Phosphatase (38-126) U/L Troponin I 0.032 (0.000-0.033) ng/mL NT-Pro-B Natriuret Pep (<300) pg/mL Serum Total Protein (6.3-8.2) g/dL Albumin (3.5-5.0) g/dL Urine Color Yellow (Yellow) Urine Appearance Clear (Clear) Urine pH 6.0 (4.6-8.0) Ur Specific Bolton 1.025 (1.005-1.030) Urine Protein Trace A (Negative) Urine Glucose (UA) >=1000 A (Negative) mg/dL Urine Ketones 15 A (Negative) Urine Blood Negative (Negative) Urine Nitrite Negative (Negative) Urine Bilirubin Negative (Negative) Urine Urobilinogen 1.0 A (0.2) mg/dL Ur Leukocyte Esterase Small A (Negative) U Hyaline Cast (Auto) NONE SEEN (0-2) /LPF Urine Microscopic RBC 0-2 (0-5) /HPF Urine Microscopic WBC 6-10 A (0-5) /HPF Ur Epithelial Cells Rare (None Seen) /HPF Urine Bacteria None Seen (None Seen) /HPF Urine Culture Reflexed YES (NO) Influenza Type A Ag NEGATIVE (NEGATIVE) Influenza Type B Ag NEGATIVE (NEGATIVE) RSV (PCR) NEGATIVE (NEGATIVE) SARS-CoV-2 (PCR) NEGATIVE (NEGATIVE) 12/29/23 12/29/23 12/29/23 Range/Units 19:40 19:40 19:40 WBC (4.0-10.5) x10^3/uL RBC (4.1-5.4) x10^6/uL Hgb (12.0-16.0) g/dL Hct (35-47) % MCV (78-100) fL MCH (26-32) pg MCHC (32-36) g/dL RDW (11.5-14.0) % Plt Count (150-450) x10^3/uL MPV (7.5-11.0) fL Gran % (36.0-66.0) % Immature Gran % (Auto) (0.00-0.4) % Nucleat RBC Rel Count (0.00-0.1) % Eos # (Auto) (0-0.5) x10^3/uL Immature Gran # (Auto) (0.00-0.03) x10^3u/L Absolute Lymphs (auto) (1.0-4.6) x10^3/uL Absolute Monos (auto) (0.0-1.3) x10^3/uL Absolute Nucleated RBC (0.00-0.01) x10^3u/L Lymphocytes % (24.0-44.0) % Monocytes % (0.0-12.0) % Eosinophils % (0.00-5.0) % Basophils % (0.0-0.4) % Absolute Granulocytes (1.4-6.9) x10^3/uL Basophils # (0-0.4) x10^3/uL D-Dimer 0.91 H* (0.0-0.50) mg/L Sodium (135-145) mmol/L Potassium (3.5-5.1) mmol/L Chloride (98-107) mmol/L Carbon Dioxide (22-30) mmol/L Anion Gap (5-15) MEQ/L BUN (7-17) mg/dL Creatinine (0.52-1.04) mg/dL Estimated GFR ML/MIN Glucose (74-106) mg/dL Lactic Acid (0.4-2.0) Calcium (8.4-10.2) mg/dL Total Bilirubin (0.2-1.3) mg/dL AST (14-36) U/L ALT (0-35) U/L Alkaline Phosphatase (38-126) U/L Troponin I 0.035 H* (0.000-0.033) ng/mL NT-Pro-B Natriuret Pep 2050 (<300) pg/mL Serum Total Protein (6.3-8.2) g/dL Albumin (3.5-5.0) g/dL Urine Color (Yellow) Urine Appearance (Clear) Urine pH (4.6-8.0) Ur Specific Bolton (1.005-1.030) Urine Protein (Negative) Urine Glucose (UA) (Negative) mg/dL Urine Ketones (Negative) Urine Blood (Negative) Urine Nitrite (Negative) Urine Bilirubin (Negative) Urine Urobilinogen (0.2) mg/dL Ur Leukocyte Esterase (Negative) U Hyaline Cast (Auto) (0-2) /LPF Urine Microscopic RBC (0-5) /HPF Urine Microscopic WBC (0-5) /HPF Ur Epithelial Cells (None Seen) /HPF Urine Bacteria (None Seen) /HPF Urine Culture Reflexed (NO) Influenza Type A Ag (NEGATIVE) Influenza Type B Ag (NEGATIVE) RSV (PCR) (NEGATIVE) SARS-CoV-2 (PCR) (NEGATIVE) 12/29/23 12/29/23 12/29/23 Range/Units 19:40 19:40 19:23 WBC 8.9 (4.0-10.5) x10^3/uL RBC 4.70 (4.1-5.4) x10^6/uL Hgb 12.6 (12.0-16.0) g/dL Hct 40.0 (35-47) % MCV 85.1 (78-100) fL MCH 26.8 (26-32) pg MCHC 31.5 L (32-36) g/dL RDW 14.2 H (11.5-14.0) % Plt Count 192 (150-450) x10^3/uL MPV 9.9 (7.5-11.0) fL Gran % 66.4 H (36.0-66.0) % Immature Gran % (Auto) 0.4 (0.00-0.4) % Nucleat RBC Rel Count 0.0 (0.00-0.1) % Eos # (Auto) 0.04 (0-0.5) x10^3/uL Immature Gran # (Auto) 0.04 H (0.00-0.03) x10^3u/L Absolute Lymphs (auto) 1.57 (1.0-4.6) x10^3/uL Absolute Monos (auto) 1.33 H (0.0-1.3) x10^3/uL Absolute Nucleated RBC 0.00 (0.00-0.01) x10^3u/L Lymphocytes % 17.6 L (24.0-44.0) % Monocytes % 14.9 H (0.0-12.0) % Eosinophils % 0.4 (0.00-5.0) % Basophils % 0.3 (0.0-0.4) % Absolute Granulocytes 5.91 (1.4-6.9) x10^3/uL Basophils # 0.03 (0-0.4) x10^3/uL D-Dimer (0.0-0.50) mg/L Sodium 131 L (135-145) mmol/L Potassium 4.1 (3.5-5.1) mmol/L Chloride 92 L (98-107) mmol/L Carbon Dioxide 29 (22-30) mmol/L Anion Gap 13.8 (5-15) MEQ/L BUN 20 H (7-17) mg/dL Creatinine 1.16 H (0.52-1.04) mg/dL Estimated GFR 46.5 ML/MIN Glucose 108 H (74-106) mg/dL Lactic Acid 1.1 (0.4-2.0) Calcium 9.0 (8.4-10.2) mg/dL Total Bilirubin 0.50 (0.2-1.3) mg/dL AST 32 (14-36) U/L ALT 19 (0-35) U/L Alkaline Phosphatase 64 (38-126) U/L Troponin I (0.000-0.033) ng/mL NT-Pro-B Natriuret Pep (<300) pg/mL Serum Total Protein 7.0 (6.3-8.2) g/dL Albumin 3.8 (3.5-5.0) g/dL Urine Color (Yellow) Urine Appearance (Clear) Urine pH (4.6-8.0) Ur Specific Bolton (1.005-1.030) Urine Protein (Negative) Urine Glucose (UA) (Negative) mg/dL Urine Ketones (Negative) Urine Blood (Negative) Urine Nitrite (Negative) Urine Bilirubin (Negative) Urine Urobilinogen (0.2) mg/dL Ur Leukocyte Esterase (Negative) U Hyaline Cast (Auto) (0-2) /LPF Urine Microscopic RBC (0-5) /HPF Urine Microscopic WBC (0-5) /HPF Ur Epithelial Cells (None Seen) /HPF Urine Bacteria (None Seen) /HPF Urine Culture Reflexed (NO) Influenza Type A Ag (NEGATIVE) Influenza Type B Ag (NEGATIVE) RSV (PCR) (NEGATIVE) SARS-CoV-2 (PCR) (NEGATIVE) - Progress Progress: improved Air Movement: good Progress Note: Case discussed with Dr. Isabella Spann at 10:[address] Spann accepts admission to observation. Plan of care discussed with patient. She agrees to admission to [facility] for further evaluation and treatment. 83-year-old female presents to emergency department for evaluation of shortness of breath cough fever. Upon arrival to our ED patient was hypoxic. Physical exam reveals diminished breath sounds wheezing and some rhonchi throughout both lung aguilar. D-dimer positive. CTA chest negative for PE. CTA chest reveals right middle lobe pneumonia. Blood cultures obtained antibiotics administered. Patient received Solu-Medrol and a DuoNeb treatment. Initial troponin positive at 0.035. Repeat troponin negative at 0.032 patient reassessed. She feels better. Patient appears to be moving more air at this time. However patient is not ready to be discharged at this time. Patient will require admission. Hospitalist accepts admission at 10:20 PM. Complexity problem addressed is moderate acute complicated No critical care time Complex of data reviewed and analyzed is extensive. Test ordered test reviewed results analyzed and correlated clinically with history and physical exam. Management discussed with hospitalist who accepts admission. Risk complication and or risk morbidity/mortality of patient management is high. Patient requires hospitalization for further evaluation and treatment. Vital stable. Time spent admit patient is approximately 15 minutes. Plan of care established for shared decision making. No social determinants of health present impede follow-up. Portions of this note were created with voice recognition technology. There may be grammatical, spelling, punctuation or sound alike errors 12/29/23 22:22 Blood Culture(s) Obtained: Yes Antibiotics given: Yes Will see patient in: hospital (observation) Counseled pt/family regarding: lab results, diagnosis, rad results - Departure Departure Disposition: Observation Clinical Impression: Fever, Cough, Hypoxia, SOB (shortness of breath), Pneumonia, UTI (urinary tract infection) Condition: Stable Critical Care Time: No Referrals: CHANI SPANN [Primary Care Provider] - Follow up/PCP as directed
[2023-12-29] MEDS ORDERED: Sterile H2O 10 ml IJ ONE (19:46)
[2023-12-29] MEDS ORDERED: solu-MEDROL ONE (19:46)
[2023-12-29] MEDS ORDERED: ROCEPHIN 2 GM/100 ML NACL 2 GM/100 ML IVPB IV ONE (19:46)
[2023-12-29] MEDS ORDERED: DUONEB 0.5-3 MG/3 ml Neb IH ONE (19:48)
[2023-12-29] MEDS: solu-MEDROL 125 MG, Sterile H2O 10 ml 2 ML IV ONE (19:53)
[2023-12-29] MEDS: ROCEPHIN 2 GM/100 ML NACL 2 GM/100 ML IVPB IV ONE (19:54)
[2023-12-29] MEDS: DUONEB 0.5-3 MG/3 ml Neb IH ONE (19:56)
[2023-12-29 19:59] LABS: Absolute Neutrophil Ct (ANC) 5.91 x10^3/uL (1.4-6.9); BASOPHIL % 0.3 % (0.0-0.4); Basophil (Absolute #) 0.03 x10^3/uL (0-0.4); Eosinophil % 0.4 % (0.00-5.0); Eosinophil (Absolute #) 0.04 x10^3/uL (0-0.5); Hemoglobin 12.6 g/dL (12.0-16.0); IMMATURE GRAN # 0.04 x10^3u/L (0.00-0.03); IMMATURE GRAN % 0.4 % (0.00-0.4); Lymphocyte (Absolute #) 1.57 x10^3/uL (1.0-4.6); Lymphocytes % 17.6 % (24.0-44.0); Mean Cell Volume 85.1 fL (78-100); Mean Corpuscular Hemoglobin 26.8 pg (26-32); Mean Corpuscular Hgb Concent. 31.5 g/dL (32-36); Mean Platelet Volume 9.9 fL (7.5-11.0); Monocyte (Absolute #) 1.33 x10^3/uL (0.0-1.3); Monocytes % 14.9 % (0.0-12.0); Neutrophil % 66.4 % (36.0-66.0); Platelet Count 192 x10^3/uL (150-450); Red Cell Distribution Width 14.2 % (11.5-14.0); White Blood Count 8.9 x10^3/uL (4.0-10.5)
[2023-12-29 20:12] LABS: Appearance Clear (Clear); Bacteria None Seen /HPF (None Seen); Bilirubin Negative (Negative); Blood Negative (Negative); Epithelial Cells Rare /HPF (None Seen); Glucose, Urine >=1000 mg/dL (Negative); Hyaline Casts NONE SEEN /LPF (0-2); Ketones 15 (Negative); Leukocyte Esterase Small (Negative); Nitrite Negative (Negative); Protein,Urine Dip Trace (Negative); RBC 0-2 /HPF (0-5); Specific Gravity 1.025 (1.005-1.030)
[2023-12-29 20:17] LABS: ADD URINE CULTURE? YES (NO)
[2023-12-29 20:19] LABS: ALBUMIN 3.8 g/dL (3.5-5.0); ANION GAP 13.8 MEQ/L (5-15); BILIRUBIN,TOTAL 0.5 mg/dL (0.2-1.3); Creatinine 1 1.16 mg/dL (0.52-1.04); EST GLOMERULAR FILTRATION RATE 46.5 ML/MIN; Potassium 4.1 mmol/L (3.5-5.1)
[2023-12-29] MEDS ORDERED: Zithromax 500 MG/ 250 ML NaCl Premix 500 MG/250 ML IVPB IV ONE (20:34)
[2023-12-29 20:35] LABS: INFLUENZA A NEGATIVE (NEGATIVE); INFLUENZA B NEGATIVE (NEGATIVE); RESPIRATORY SYNCTIAL VIRUS NEGATIVE (NEGATIVE); SARS-CoV-2 Xpert Express NEGATIVE (NEGATIVE)
[2023-12-29] MEDS: Zithromax 500 MG/ 250 ML NaCl Premix 500 MG/250 ML IVPB IV STA (20:35)
[2023-12-29] MEDS ORDERED: NORCO 5/325 MG PO PRN (23:19)
[2023-12-29] MEDS ORDERED: PROCHLORPERAZINE MALEATE 10 MG PO PRN (23:19)
[2023-12-29] MEDS ORDERED: Lomotil PO PRN (23:19)
--- NOTE | 2023-12-29 23:24 | PCM.HP ---
History of Present Illness - Chief Complaint Chief Complaint: Pneumonia, fever, hypoxia History of Present Illness: is a 83 year old female with CAD, DM2 who presents with shortness of breath, cough, hypoxia c/w pneumonia. Reports progressive fatigue, subjective fevers. No diarrhea, vomiting or chest pain. - Review of Systems Constitutional: Fever, No Chills Eyes: No Symptoms Ears, Nose, & Throat: No Symptoms Respiratory: No Cough, No Short Of Breath Cardiac: No Chest Pain, No Edema, No Syncope Abdominal/Gastrointestinal: No Abdominal Pain, No Nausea, No Vomiting, No Diarrhea Genitourinary Symptoms: No Dysuria Musculoskeletal: No Back Pain, No Neck Pain Skin: No Rash Neurological: No Dizziness, No Focal Weakness, No Sensory Changes Psychological: No Symptoms Endocrine: No Symptoms Hematologic/Lymphatic: No Symptoms Immunological/Allergic: No Symptoms Medications & Allergies Home Medications: Home Medication List Aspirin 81 mg PO DAILY 12/15/16 [History Confirmed 12/29/23] Levothyroxine Sodium 50 Mcg [Synthroid 50 Mcg] 75 mcg PO DAILY 12/15/16 [History Confirmed 12/29/23] Nebivolol HCl [Bystolic] 5 mg PO BID 12/15/16 [History Confirmed 12/29/23] Sucralfate 1 gm [Carafate 1 GM] 1 gm PO BID 12/15/16 [History Confirmed 12/29/23] Calcium Carbonate/Vitamin D3 [Caltrate 600 Plus D3 Tablet] 1 each PO BID 09/08/18 [History Confirmed 12/29/23] Clopidogrel Bisulfate [Clopidogrel] 75 mg PO DAILY 09/08/18 [History Confirmed 12/29/23] Cyanocobalamin (Vitamin B-12) [Vitamin B-12] 500 mcg SL DAILY 09/08/18 [History Confirmed 12/29/23] Hydrocodone/Acetaminophen [Hydrocodone-Acetamin 5-325 mg ###] 1 tab PO Q4-6HPRN PRN 09/08/18 [History Confirmed 12/29/23] Magnesium Chloride [Slow-Mag] 143 mg PO HS 09/08/18 [History Confirmed 12/29/23] PANTOPRAZOLE 40 mg Tablet [Protonix 40MG Tablet] 40 mg PO BID 09/08/18 [History Confirmed 12/29/23] Simvastatin 20 mg PO HS 09/08/18 [History Confirmed 12/29/23] Diphenoxylate HCl/Atropine [Lomotil] 1 tab PO Q12H PRN PRN 04/03/20 [History Confirmed 12/29/23] Empagliflozin [Jardiance] 25 mg PO DAILY 04/03/20 [History Confirmed 12/29/23] Ranolazine 500 MG [Ranexa 500 MG] 1 tab PO DAILY 04/03/20 [History Confirmed 12/29/23] glipiZIDE [Glucotrol] 10 mg PO BID 04/03/20 [History Confirmed 12/29/23] Sitagliptin Phosphate 50 MG [Januvia 50 MG] 50 mg PO BID 11/13/22 [History Confirmed 12/29/23] Metformin HCl [Metformin HCl ER] 750 mg PO BID 12/29/23 [History Confirmed 12/29/23] Allergies/Adverse Reactions: Allergies Allergy/AdvReac Type Severity Reaction Status Date / Time No Known Drug Allergies Allergy Verified 11/13/22 13:01 - Past Medical History Past Medical History: Yes Neurological History: No Pertinent History ENT History: Other Cardiac History: Angina, High Cholesterol, Hypertension, Myocardial Infarction (MD) Respiratory History: No Pertinent History Endocrine Medical History: Diabetes Type II, Hypothyroidism Musculoskelatal History: Arthritis, Other GI Medical History: GERD, Other History: No Pertinent History Pyscho-Social History: Anxiety Reproductive Disorders: No Pertinent History Comment: hx fx L wrist, L ankle, Esophageal cancer, wears glasses to read, melanoma of left arm - Past Surgical History Past Surgical History: Yes Neuro Surgical History: No Pertinent History Cardiac History: Cardiac Catheterization, Cardiac Stent Respiratory Surgery: No Pertinent History GI Surgical History: Cholecystectomy Genitourinary Surgical Hx: No Pertinent History Musculskeletal Surgical Hx: No Pertinent History Female Surgical History: No Pertinent History Other Surgical History: skin cancer surgical removal L F/A, CVL port placed, endoscopic US - x3 times. radiation and chemotherapy, D/C, Throat stents 6 weeks for scarring due to esophageal cancer - Social History Smoking Status: Never smoker Exposure to second hand smoke: No Alcohol: None Drug Use: none - Social Determinants of Health Will the patient participate in the screening: Declined to provide - Physical Exam Vital Signs: Vital Signs - 24 hr Temp Pulse Resp BP BP Pulse Ox 12/29/23 22:30 82 20 97/53 97 12/29/23 22:24 95 12/29/23 22:00 79 20 99/63 96 12/29/23 21:33 80 20 137/60 99 12/29/23 21:00 85 21 112/50 88 L 12/29/23 20:30 84 22 129/59 89 L 12/29/23 20:00 82 18 136/62 97 12/29/23 19:56 85 22 95 12/29/23 19:45 96 12/29/23 19:38 85 25 H 151/64 99 12/29/23 19:15 81 16 118/73 95 12/29/23 19:08 22 94 L 12/29/23 19:01 86 18 152/75 96 12/29/23 19:00 97.8 F 88 18 152/75 87 L General Appearance: no apparent distress, alert Neurologic Exam: alert, oriented x 3, cooperative, normal mood/affect, nml cerebellar function, nml station & gait, sensation nml, No motor deficits Eye Exam: PERRL/EOMI, eyes nml inspection Ears, Nose, Throat Exam: normal ENT inspection, TMs normal, pharynx normal, moist mucous membranes Neck Exam: normal inspection, non-tender, supple, full range of motion Respiratory Exam: normal breath sounds, lungs clear, No respiratory distress Cardiovascular Exam: regular rate/rhythm, normal heart sounds, normal peripheral pulses Gastrointestinal/Abdomen Exam: soft, normal bowel sounds, No tenderness, No mass Back Exam: normal inspection, normal range of motion, No CVA tenderness, No vertebral tenderness Extremity Exam: normal inspection, normal range of motion, pelvis stable Skin Exam: normal color, warm, dry, No rash Lymphatic Exam: No adenopathy Results - Labs Lab/Micro Results: Lab Results-Last 24 Hours 12/29/23 12/29/23 12/29/23 Range/Units 19:23 19:40 19:40 WBC 8.9 (4.0-10.5) x10^3/uL RBC 4.70 (4.1-5.4) x10^6/uL Hgb 12.6 (12.0-16.0) g/dL Hct 40.0 (35-47) % MCV 85.1 (78-100) fL MCH 26.8 (26-32) pg MCHC 31.5 L (32-36) g/dL RDW 14.2 H (11.5-14.0) % Plt Count 192 (150-450) x10^3/uL MPV 9.9 (7.5-11.0) fL Gran % 66.4 H (36.0-66.0) % Immature Gran % (Auto) 0.4 (0.00-0.4) % Nucleat RBC Rel Count 0.0 (0.00-0.1) % Eos # (Auto) 0.04 (0-0.5) x10^3/uL Immature Gran # (Auto) 0.04 H (0.00-0.03) x10^3u/L Absolute Lymphs (auto) 1.57 (1.0-4.6) x10^3/uL Absolute Monos (auto) 1.33 H (0.0-1.3) x10^3/uL Absolute Nucleated RBC 0.00 (0.00-0.01) x10^3u/L Lymphocytes % 17.6 L (24.0-44.0) % Monocytes % 14.9 H (0.0-12.0) % Eosinophils % 0.4 (0.00-5.0) % Basophils % 0.3 (0.0-0.4) % Absolute Granulocytes 5.91 (1.4-6.9) x10^3/uL Basophils # 0.03 (0-0.4) x10^3/uL D-Dimer (0.0-0.50) mg/L Sodium 131 L (135-145) mmol/L Potassium 4.1 (3.5-5.1) mmol/L Chloride 92 L (98-107) mmol/L Carbon Dioxide 29 (22-30) mmol/L Anion Gap 13.8 (5-15) MEQ/L BUN 20 H (7-17) mg/dL Creatinine 1.16 H (0.52-1.04) mg/dL Estimated GFR 46.5 ML/MIN Glucose 108 H (74-106) mg/dL Lactic Acid 1.1 (0.4-2.0) Calcium 9.0 (8.4-10.2) mg/dL Total Bilirubin 0.50 (0.2-1.3) mg/dL AST 32 (14-36) U/L ALT 19 (0-35) U/L Alkaline Phosphatase 64 (38-126) U/L Troponin I (0.000-0.033) ng/mL NT-Pro-B Natriuret Pep (<300) pg/mL Serum Total Protein 7.0 (6.3-8.2) g/dL Albumin 3.8 (3.5-5.0) g/dL Urine Color (Yellow) Urine Appearance (Clear) Urine pH (4.6-8.0) Ur Specific [place] (1.005-1.030) Urine Protein (Negative) Urine Glucose (UA) (Negative) mg/dL Urine Ketones (Negative) Urine Blood (Negative) Urine Nitrite (Negative) Urine Bilirubin (Negative) Urine Urobilinogen (0.2) mg/dL Ur Leukocyte Esterase (Negative) U Hyaline Cast (Auto) (0-2) /LPF Urine Microscopic RBC (0-5) /HPF Urine Microscopic WBC (0-5) /HPF Ur Epithelial Cells (None Seen) /HPF Urine Bacteria (None Seen) /HPF Urine Culture Reflexed (NO) Influenza Type A Ag (NEGATIVE) Influenza Type B Ag (NEGATIVE) RSV (PCR) (NEGATIVE) SARS-CoV-2 (PCR) (NEGATIVE) 12/29/23 12/29/23 12/29/23 Range/Units 19:40 19:40 19:40 WBC (4.0-10.5) x10^3/uL RBC (4.1-5.4) x10^6/uL Hgb (12.0-16.0) g/dL Hct (35-47) % MCV (78-100) fL MCH (26-32) pg MCHC (32-36) g/dL RDW (11.5-14.0) % Plt Count (150-450) x10^3/uL MPV (7.5-11.0) fL Gran % (36.0-66.0) % Immature Gran % (Auto) (0.00-0.4) % Nucleat RBC Rel Count (0.00-0.1) % Eos # (Auto) (0-0.5) x10^3/uL Immature Gran # (Auto) (0.00-0.03) x10^3u/L Absolute Lymphs (auto) (1.0-4.6) x10^3/uL Absolute Monos (auto) (0.0-1.3) x10^3/uL Absolute Nucleated RBC (0.00-0.01) x10^3u/L Lymphocytes % (24.0-44.0) % Monocytes % (0.0-12.0) % Eosinophils % (0.00-5.0) % Basophils % (0.0-0.4) % Absolute Granulocytes (1.4-6.9) x10^3/uL Basophils # (0-0.4) x10^3/uL D-Dimer 0.91 H* (0.0-0.50) mg/L Sodium (135-145) mmol/L Potassium (3.5-5.1) mmol/L Chloride (98-107) mmol/L Carbon Dioxide (22-30) mmol/L Anion Gap (5-15) MEQ/L BUN (7-17) mg/dL Creatinine (0.52-1.04) mg/dL Estimated GFR ML/MIN Glucose (74-106) mg/dL Lactic Acid (0.4-2.0) Calcium (8.4-10.2) mg/dL Total Bilirubin (0.2-1.3) mg/dL AST (14-36) U/L ALT (0-35) U/L Alkaline Phosphatase (38-126) U/L Troponin I 0.035 H* (0.000-0.033) ng/mL NT-Pro-B Natriuret Pep 2050 (<300) pg/mL Serum Total Protein (6.3-8.2) g/dL Albumin (3.5-5.0) g/dL Urine Color (Yellow) Urine Appearance (Clear) Urine pH (4.6-8.0) Ur Specific [place] (1.005-1.030) Urine Protein (Negative) Urine Glucose (UA) (Negative) mg/dL Urine Ketones (Negative) Urine Blood (Negative) Urine Nitrite (Negative) Urine Bilirubin (Negative) Urine Urobilinogen (0.2) mg/dL Ur Leukocyte Esterase (Negative) U Hyaline Cast (Auto) (0-2) /LPF Urine Microscopic RBC (0-5) /HPF Urine Microscopic WBC (0-5) /HPF Ur Epithelial Cells (None Seen) /HPF Urine Bacteria (None Seen) /HPF Urine Culture Reflexed (NO) Influenza Type A Ag (NEGATIVE) Influenza Type B Ag (NEGATIVE) RSV (PCR) (NEGATIVE) SARS-CoV-2 (PCR) (NEGATIVE) 12/29/23 12/29/23 12/29/23 Range/Units 19:45 19:50 21:42 WBC (4.0-10.5) x10^3/uL RBC (4.1-5.4) x10^6/uL Hgb (12.0-16.0) g/dL Hct (35-47) % MCV (78-100) fL MCH (26-32) pg MCHC (32-36) g/dL RDW (11.5-14.0) % Plt Count (150-450) x10^3/uL MPV (7.5-11.0) fL Gran % (36.0-66.0) % Immature Gran % (Auto) (0.00-0.4) % Nucleat RBC Rel Count (0.00-0.1) % Eos # (Auto) (0-0.5) x10^3/uL Immature Gran # (Auto) (0.00-0.03) x10^3u/L Absolute Lymphs (auto) (1.0-4.6) x10^3/uL Absolute Monos (auto) (0.0-1.3) x10^3/uL Absolute Nucleated RBC (0.00-0.01) x10^3u/L Lymphocytes % (24.0-44.0) % Monocytes % (0.0-12.0) % Eosinophils % (0.00-5.0) % Basophils % (0.0-0.4) % Absolute Granulocytes (1.4-6.9) x10^3/uL Basophils # (0-0.4) x10^3/uL D-Dimer (0.0-0.50) mg/L Sodium (135-145) mmol/L Potassium (3.5-5.1) mmol/L Chloride (98-107) mmol/L Carbon Dioxide (22-30) mmol/L Anion Gap (5-15) MEQ/L BUN (7-17) mg/dL Creatinine (0.52-1.04) mg/dL Estimated GFR ML/MIN Glucose (74-106) mg/dL Lactic Acid (0.4-2.0) Calcium (8.4-10.2) mg/dL Total Bilirubin (0.2-1.3) mg/dL AST (14-36) U/L ALT (0-35) U/L Alkaline Phosphatase (38-126) U/L Troponin I 0.032 (0.000-0.033) ng/mL NT-Pro-B Natriuret Pep (<300) pg/mL Serum Total Protein (6.3-8.2) g/dL Albumin (3.5-5.0) g/dL Urine Color Yellow (Yellow) Urine Appearance Clear (Clear) Urine pH 6.0 (4.6-8.0) Ur Specific [place] 1.025 (1.005-1.030) Urine Protein Trace A (Negative) Urine Glucose (UA) >=1000 A (Negative) mg/dL Urine Ketones 15 A (Negative) Urine Blood Negative (Negative) Urine Nitrite Negative (Negative) Urine Bilirubin Negative (Negative) Urine Urobilinogen 1.0 A (0.2) mg/dL Ur Leukocyte Esterase Small A (Negative) U Hyaline Cast (Auto) NONE SEEN (0-2) /LPF Urine Microscopic RBC 0-2 (0-5) /HPF Urine Microscopic WBC 6-10 A (0-5) /HPF Ur Epithelial Cells Rare (None Seen) /HPF Urine Bacteria None Seen (None Seen) /HPF Urine Culture Reflexed YES (NO) Influenza Type A Ag NEGATIVE (NEGATIVE) Influenza Type B Ag NEGATIVE (NEGATIVE) RSV (PCR) NEGATIVE (NEGATIVE) SARS-CoV-2 (PCR) NEGATIVE (NEGATIVE) - Radiology Impressions Radiology Exams & Impressions: Radiology Procedures Category Date Time Status CHEST WITH CONTRAST [CT] Stat Exams 12/29/23 20:49 Taken - Other Procedures and Tests Respiratory Therapy 12/29/23 20:00 Respiratory Therapy Assessment DAILY Assessment/Plan (1) Pneumonia Current Visit: Yes Status: Acute Assessment & Plan: 1. Ceftriaxone + Azithro 2. Supplemental O2 Code(s): J18.9 - PNEUMONIA, UNSPECIFIED ORGANISM Telemedicine Encounter - Telemedicine Encounter Telemedicine Encounter: The entirety of this encounter was performed via Telemedicine"
[2023-12-29] MEDS ORDERED: Sodium Chloride 0.9% 1000 ML 1,000 ML ONE (23:40)
[2023-12-29] MEDS: Sodium Chloride 0.9% 1000 ML 1,000 ML IV SCH (23:50)
[2023-12-30] MEDS: ROCEPHIN 1 GM / 100 ML NaCl 1 GM/100 ML IVPB IV SCH
[2023-12-30 04:42] LABS: Hematocrit 39.2 % (35-47); Hemoglobin 12.6 g/dL (12.0-16.0); Mean Corpuscular Hemoglobin 27.3 pg (26-32); Mean Corpuscular Hgb Concent. 32.1 g/dL (32-36); Mean Platelet Volume 10.4 fL (7.5-11.0); Platelet Count 192 x10^3/uL (150-450); Red Blood Count 4.61 x10^6/uL (4.1-5.4); Red Cell Distribution Width 14.6 % (11.5-14.0); White Blood Count 6.6 x10^3/uL (4.0-10.5)
[2023-12-30 04:57] LABS: ALBUMIN 3.6 g/dL (3.5-5.0); BILIRUBIN,TOTAL 0.4 mg/dL (0.2-1.3); Calcium 8.4 mg/dL (8.4-10.2); Creatinine 1 1.13 mg/dL (0.52-1.04); Potassium 4.1 mmol/L (3.5-5.1); Total Protein 6.5 g/dL (6.3-8.2)
[2023-12-30] MEDS: Carafate 1 GM PO SCH (08:38)
[2023-12-30] MEDS: Glucophage XR 500 MG PO SCH (08:38)
[2023-12-30] MEDS: Glucotrol 5 MG PO SCH (08:38)
--- NOTE | 2023-12-30 08:51 | XRAY ---
Indication: Short of breath. Elevated d-dimer. Multiple contiguous axial images obtained through the chest using 80 cc Isovue 370 contrast and PE protocol. Comparison: November 06, 2020 Good opacification of the pulmonary arteries to include the lobar and segmental branches. No pulmonary embolus. Heart not enlarged. Aorta again mildly arteriosclerotic without aneurysm/dissection. Stable tiny mediastinal and bilateral hilar calcified nodes. No pathologic mediastinal/hilar lymphadenopathy. Lungs demonstrate new patchy right middle lobe airspace disease and tiny right effusion. Remaining lungs demonstrate minimal bilateral dependent atelectasis, minimal bilateral peripheral fibrosis/scarring, and a few tiny calcified granulomas. Bony thorax again demonstrates osteopenia, mild degenerative changes throughout spine, and T7-T10 kyphoplasty. Previous sternal fracture now appears nonunited. Limited upper abdomen again demonstrates left renal atrophy and tiny peripheral right lobe hepatic cyst/hemangioma. Impression: 1. Negative pulmonary embolus. 2. New patchy right middle lobe airspace disease with tiny effusion. 3. Chronic findings including pulmonary fibrosis/scarring, arteriosclerotic disease, left renal atrophy, tiny hepatic cyst/hemangioma, chronic bony findings, and old granulomatous disease.
[2023-12-30] MEDS ORDERED: CALCIUM CARBONATE PO SCH (10:00)
[2023-12-30] MEDS ORDERED: [UNRECOGNIZED DRUG - OTHER] PO SCH (10:00)
[2023-12-30] MEDS ORDERED: NON-FORMULARY ITEM (Metformin Hcl [Metformin Hcl Er] 750 MG Tab.Er.24h) PO SCH (10:00)
[2023-12-30] MEDS ORDERED: BABY ASPIRIN 81 MG CHEW PO SCH (10:00)
[2023-12-30] MEDS ORDERED: NON-FORMULARY ITEM (Cyanocobalamin (Vitamin B-12) [Vitamin B-12] 1,000 MCG Tablet) SL SCH (10:00)
[2023-12-30] MEDS ORDERED: NON-FORMULARY ITEM (Nebivolol Hcl [Bystolic] 10 MG Tablet) PO SCH (10:00)
[2023-12-30] MEDS ORDERED: VITAMIN D3 PO SCH (10:00)
[2023-12-30] MEDS ORDERED: TABL PO SCH (10:00)
[2023-12-30] MEDS ORDERED: GLIPIZIDE 10 MG PO SCH (10:00)
[2023-12-30] MEDS ORDERED: SYNTHROID 50 MCG PO SCH (10:00)
[2023-12-30] MEDS: ECOTRIN 81 MG PO SCH (10:40)
[2023-12-30] MEDS: Vitamin B-12 500 MCG PO SCH (10:40)
[2023-12-30] MEDS: Calcium 500MG W/Vit D Tablet PO SCH (10:40)
[2023-12-30] MEDS: Bystolic 5 MG PO SCH (10:40)
[2023-12-30] MEDS: PLAVIX Tablet PO SCH (10:40)
[2023-12-30] MEDS: MAG-OX 400 PO SCH (10:41)
[2023-12-30] MEDS: Ranexa 500 MG PO SCH (10:41)
[2023-12-30] MEDS: Januvia 50 MG PO SCH (10:41)
[2023-12-30] MEDS: Protonix 40MG Tablet PO SCH (10:41)
[2023-12-30] MEDS: SYNTHROID 75 MCG PO SCH (10:42)
[2023-12-30] MEDS: JARDIANCE PO SCH (10:42)
[2023-12-30 11:50] VITALS: PULSE 84; RESP 23; TEMP 96.7; O2SAT 94
[2023-12-30 11:51] VITALS: BP 114/56
--- NOTE | 2023-12-30 12:23 | PCM.DS ---
Discharge Summary Date of Admission: 12/29/23 22:43 Date of Discharge: 12/30/23 Admitting Physician: RANDOLPH SPANN MD Primary Care Provider: CHANI SPANN Allergies Allergies No Known Drug Allergies Allergy (Verified 11/13/22 13:01) Hospital Summary - Hospital Course Hospital Course: Ms. Gomez is an 83 year old female with a pmhx of HLD, HTN, VT, DMII, hypothyroidism, and esophageal cancer who presented to ED 12/29/23 with progressive shortness of breath, fever, and cough admitted with CT demonstrating pneumonia. Patient stating dyspnea and cough have improved. She has remained afebrile during admission. Patient is requesting discharge home today. We have set her up with home oxygen and will dismiss her with cefpodoxime, azithromycin, and medrol dose pack. She is to follow up with her pcp next week for evaluation of resolution. Patient agreeable to plan and stable for discharge. Discharge Note New Diagnosis: Pneumonia New Medications: Cefpodoxime/medrol dose pack/azithromycin Follow Up: PCP Latest Assessment & Plan (1) Pneumonia Current Visit: Yes Status: Acute Assessment & Plan: 1. Ceftriaxone + Azithro 2. Supplemental O2 #diabetes -Advised patient to monitor blood glucose levels closely at home while on steroids #CAD Continue home meds #hypothyroid -Continue home meds # acute respiratory failure -Supplemental oxygen with spo2 goal > 92%, patient does qualify for home oxygen I spent 35 minutes [id number] with the patient on the day of discharge performing discharge exam, discussing hospital stay and discharge instructions with patient and caregivers, preparation of discharge records, prescriptions & referral forms and addressing any questions/concerns the patient had as documented above. - Vitals & Intake/Output Vital Signs: Vital Signs Temperature 96.7 F 12/30/23 11:49 Pulse Rate 84 12/30/23 11:49 Respiratory Rate 23 12/30/23 11:49 Blood Pressure 114/56 12/30/23 11:49 O2 Sat by Pulse Oximetry 94 L 12/30/23 11:49 Intake & Output: Intake & Output 12/28/23 12/29/23 12/30/23 12/31/23 11:59 11:59 11:59 11:59 Intake Total 986 Output Total 600 Balance 386 Weight 66.9 kg - Lab Result Diagrams: 12/30/23 04:05 12/30/23 04:05 Lab Results-Last 24 Hrs: Lab Results-Last 24 Hours 12/29/23 12/29/23 12/29/23 Range/Units 19:23 19:40 19:40 WBC 8.9 (4.0-10.5) x10^3/uL RBC 4.70 (4.1-5.4) x10^6/uL Hgb 12.6 (12.0-16.0) g/dL Hct 40.0 (35-47) % MCV 85.1 (78-100) fL MCH 26.8 (26-32) pg MCHC 31.5 L (32-36) g/dL RDW 14.2 H (11.5-14.0) % Plt Count 192 (150-450) x10^3/uL MPV 9.9 (7.5-11.0) fL Gran % 66.4 H (36.0-66.0) % Immature Gran % (Auto) 0.4 (0.00-0.4) % Nucleat RBC Rel Count 0.0 (0.00-0.1) % Eos # (Auto) 0.04 (0-0.5) x10^3/uL Immature Gran # (Auto) 0.04 H (0.00-0.03) x10^3u/L Absolute Lymphs (auto) 1.57 (1.0-4.6) x10^3/uL Absolute Monos (auto) 1.33 H (0.0-1.3) x10^3/uL Absolute Nucleated RBC 0.00 (0.00-0.01) x10^3u/L Lymphocytes % 17.6 L (24.0-44.0) % Monocytes % 14.9 H (0.0-12.0) % Eosinophils % 0.4 (0.00-5.0) % Basophils % 0.3 (0.0-0.4) % Absolute Granulocytes 5.91 (1.4-6.9) x10^3/uL Basophils # 0.03 (0-0.4) x10^3/uL D-Dimer (0.0-0.50) mg/L Sodium 131 L (135-145) mmol/L Potassium 4.1 (3.5-5.1) mmol/L Chloride 92 L (98-107) mmol/L Carbon Dioxide 29 (22-30) mmol/L Anion Gap 13.8 (5-15) MEQ/L BUN 20 H (7-17) mg/dL Creatinine 1.16 H (0.52-1.04) mg/dL Estimated GFR 46.5 ML/MIN Glucose 108 H (74-106) mg/dL POC Glucometer (74 to 106) mg/dL Lactic Acid 1.1 (0.4-2.0) Calcium 9.0 (8.4-10.2) mg/dL Total Bilirubin 0.50 (0.2-1.3) mg/dL AST 32 (14-36) U/L ALT 19 (0-35) U/L Alkaline Phosphatase 64 (38-126) U/L Troponin I (0.000-0.033) ng/mL NT-Pro-B Natriuret Pep (<300) pg/mL Serum Total Protein 7.0 (6.3-8.2) g/dL Albumin 3.8 (3.5-5.0) g/dL Urine Color (Yellow) Urine Appearance (Clear) Urine pH (4.6-8.0) Ur Specific [place] (1.005-1.030) Urine Protein (Negative) Urine Glucose (UA) (Negative) mg/dL Urine Ketones (Negative) Urine Blood (Negative) Urine Nitrite (Negative) Urine Bilirubin (Negative) Urine Urobilinogen (0.2) mg/dL Ur Leukocyte Esterase (Negative) U Hyaline Cast (Auto) (0-2) /LPF Urine Microscopic RBC (0-5) /HPF Urine Microscopic WBC (0-5) /HPF Ur Epithelial Cells (None Seen) /HPF Urine Bacteria (None Seen) /HPF Urine Culture Reflexed (NO) Influenza Type A Ag (NEGATIVE) Influenza Type B Ag (NEGATIVE) RSV (PCR) (NEGATIVE) SARS-CoV-2 (PCR) (NEGATIVE) 12/29/23 12/29/23 12/29/23 Range/Units 19:40 19:40 19:40 WBC (4.0-10.5) x10^3/uL RBC (4.1-5.4) x10^6/uL Hgb (12.0-16.0) g/dL Hct (35-47) % MCV (78-100) fL MCH (26-32) pg MCHC (32-36) g/dL RDW (11.5-14.0) % Plt Count (150-450) x10^3/uL MPV (7.5-11.0) fL Gran % (36.0-66.0) % Immature Gran % (Auto) (0.00-0.4) % Nucleat RBC Rel Count (0.00-0.1) % Eos # (Auto) (0-0.5) x10^3/uL Immature Gran # (Auto) (0.00-0.03) x10^3u/L Absolute Lymphs (auto) (1.0-4.6) x10^3/uL Absolute Monos (auto) (0.0-1.3) x10^3/uL Absolute Nucleated RBC (0.00-0.01) x10^3u/L Lymphocytes % (24.0-44.0) % Monocytes % (0.0-12.0) % Eosinophils % (0.00-5.0) % Basophils % (0.0-0.4) % Absolute Granulocytes (1.4-6.9) x10^3/uL Basophils # (0-0.4) x10^3/uL D-Dimer 0.91 H* (0.0-0.50) mg/L Sodium (135-145) mmol/L Potassium (3.5-5.1) mmol/L Chloride (98-107) mmol/L Carbon Dioxide (22-30) mmol/L Anion Gap (5-15) MEQ/L BUN (7-17) mg/dL Creatinine (0.52-1.04) mg/dL Estimated GFR ML/MIN Glucose (74-106) mg/dL POC Glucometer (74 to 106) mg/dL Lactic Acid (0.4-2.0) Calcium (8.4-10.2) mg/dL Total Bilirubin (0.2-1.3) mg/dL AST (14-36) U/L ALT (0-35) U/L Alkaline Phosphatase (38-126) U/L Troponin I 0.035 H* (0.000-0.033) ng/mL NT-Pro-B Natriuret Pep 2050 (<300) pg/mL Serum Total Protein (6.3-8.2) g/dL Albumin (3.5-5.0) g/dL Urine Color (Yellow) Urine Appearance (Clear) Urine pH (4.6-8.0) Ur Specific [place] (1.005-1.030) Urine Protein (Negative) Urine Glucose (UA) (Negative) mg/dL Urine Ketones (Negative) Urine Blood (Negative) Urine Nitrite (Negative) Urine Bilirubin (Negative) Urine Urobilinogen (0.2) mg/dL Ur Leukocyte Esterase (Negative) U Hyaline Cast (Auto) (0-2) /LPF Urine Microscopic RBC (0-5) /HPF Urine Microscopic WBC (0-5) /HPF Ur Epithelial Cells (None Seen) /HPF Urine Bacteria (None Seen) /HPF Urine Culture Reflexed (NO) Influenza Type A Ag (NEGATIVE) Influenza Type B Ag (NEGATIVE) RSV (PCR) (NEGATIVE) SARS-CoV-2 (PCR) (NEGATIVE) 12/29/23 12/29/23 12/29/23 Range/Units 19:45 19:50 21:42 WBC (4.0-10.5) x10^3/uL RBC (4.1-5.4) x10^6/uL Hgb (12.0-16.0) g/dL Hct (35-47) % MCV (78-100) fL MCH (26-32) pg MCHC (32-36) g/dL RDW (11.5-14.0) % Plt Count (150-450) x10^3/uL MPV (7.5-11.0) fL Gran % (36.0-66.0) % Immature Gran % (Auto) (0.00-0.4) % Nucleat RBC Rel Count (0.00-0.1) % Eos # (Auto) (0-0.5) x10^3/uL Immature Gran # (Auto) (0.00-0.03) x10^3u/L Absolute Lymphs (auto) (1.0-4.6) x10^3/uL Absolute Monos (auto) (0.0-1.3) x10^3/uL Absolute Nucleated RBC (0.00-0.01) x10^3u/L Lymphocytes % (24.0-44.0) % Monocytes % (0.0-12.0) % Eosinophils % (0.00-5.0) % Basophils % (0.0-0.4) % Absolute Granulocytes (1.4-6.9) x10^3/uL Basophils # (0-0.4) x10^3/uL D-Dimer (0.0-0.50) mg/L Sodium (135-145) mmol/L Potassium (3.5-5.1) mmol/L Chloride (98-107) mmol/L Carbon Dioxide (22-30) mmol/L Anion Gap (5-15) MEQ/L BUN (7-17) mg/dL Creatinine (0.52-1.04) mg/dL Estimated GFR ML/MIN Glucose (74-106) mg/dL POC Glucometer (74 to 106) mg/dL Lactic Acid (0.4-2.0) Calcium (8.4-10.2) mg/dL Total Bilirubin (0.2-1.3) mg/dL AST (14-36) U/L ALT (0-35) U/L Alkaline Phosphatase (38-126) U/L Troponin I 0.032 (0.000-0.033) ng/mL NT-Pro-B Natriuret Pep (<300) pg/mL Serum Total Protein (6.3-8.2) g/dL Albumin (3.5-5.0) g/dL Urine Color Yellow (Yellow) Urine Appearance Clear (Clear) Urine pH 6.0 (4.6-8.0) Ur Specific [place] 1.025 (1.005-1.030) Urine Protein Trace A (Negative) Urine Glucose (UA) >=1000 A (Negative) mg/dL Urine Ketones 15 A (Negative) Urine Blood Negative (Negative) Urine Nitrite Negative (Negative) Urine Bilirubin Negative (Negative) Urine Urobilinogen 1.0 A (0.2) mg/dL Ur Leukocyte Esterase Small A (Negative) U Hyaline Cast (Auto) NONE SEEN (0-2) /LPF Urine Microscopic RBC 0-2 (0-5) /HPF Urine Microscopic WBC 6-10 A (0-5) /HPF Ur Epithelial Cells Rare (None Seen) /HPF Urine Bacteria None Seen (None Seen) /HPF Urine Culture Reflexed YES (NO) Influenza Type A Ag NEGATIVE (NEGATIVE) Influenza Type B Ag NEGATIVE (NEGATIVE) RSV (PCR) NEGATIVE (NEGATIVE) SARS-CoV-2 (PCR) NEGATIVE (NEGATIVE) 12/30/23 12/30/23 12/30/23 Range/Units 04:05 04:05 04:05 WBC 6.6 (4.0-10.5) x10^3/uL RBC 4.61 (4.1-5.4) x10^6/uL Hgb 12.6 (12.0-16.0) g/dL Hct 39.2 (35-47) % MCV 85.0 (78-100) fL MCH 27.3 (26-32) pg MCHC 32.1 (32-36) g/dL RDW 14.6 H (11.5-14.0) % Plt Count 192 (150-450) x10^3/uL MPV 10.4 (7.5-11.0) fL Gran % (36.0-66.0) % Immature Gran % (Auto) (0.00-0.4) % Nucleat RBC Rel Count (0.00-0.1) % Eos # (Auto) (0-0.5) x10^3/uL Immature Gran # (Auto) (0.00-0.03) x10^3u/L Absolute Lymphs (auto) (1.0-4.6) x10^3/uL Absolute Monos (auto) (0.0-1.3) x10^3/uL Absolute Nucleated RBC (0.00-0.01) x10^3u/L Lymphocytes % (24.0-44.0) % Monocytes % (0.0-12.0) % Eosinophils % (0.00-5.0) % Basophils % (0.0-0.4) % Absolute Granulocytes (1.4-6.9) x10^3/uL Basophils # (0-0.4) x10^3/uL D-Dimer (0.0-0.50) mg/L Sodium 134 L (135-145) mmol/L Potassium 4.1 (3.5-5.1) mmol/L Chloride 98 (98-107) mmol/L Carbon Dioxide 21 L (22-30) mmol/L Anion Gap 19.0 H (5-15) MEQ/L BUN 23 H (7-17) mg/dL Creatinine 1.13 H (0.52-1.04) mg/dL Estimated GFR 48.0 ML/MIN Glucose 220 H (74-106) mg/dL POC Glucometer (74 to 106) mg/dL Lactic Acid (0.4-2.0) Calcium 8.4 (8.4-10.2) mg/dL Total Bilirubin 0.40 (0.2-1.3) mg/dL AST 31 (14-36) U/L ALT 21 (0-35) U/L Alkaline Phosphatase 53 (38-126) U/L Troponin I 0.017 (0.000-0.033) ng/mL NT-Pro-B Natriuret Pep (<300) pg/mL Serum Total Protein 6.5 (6.3-8.2) g/dL Albumin 3.6 (3.5-5.0) g/dL Urine Color (Yellow) Urine Appearance (Clear) Urine pH (4.6-8.0) Ur Specific [place] (1.005-1.030) Urine Protein (Negative) Urine Glucose (UA) (Negative) mg/dL Urine Ketones (Negative) Urine Blood (Negative) Urine Nitrite (Negative) Urine Bilirubin (Negative) Urine Urobilinogen (0.2) mg/dL Ur Leukocyte Esterase (Negative) U Hyaline Cast (Auto) (0-2) /LPF Urine Microscopic RBC (0-5) /HPF Urine Microscopic WBC (0-5) /HPF Ur Epithelial Cells (None Seen) /HPF Urine Bacteria (None Seen) /HPF Urine Culture Reflexed (NO) Influenza Type A Ag (NEGATIVE) Influenza Type B Ag (NEGATIVE) RSV (PCR) (NEGATIVE) SARS-CoV-2 (PCR) (NEGATIVE) 12/30/23 12/30/23 12/30/23 Range/Units 06:35 11:29 11:29 WBC (4.0-10.5) x10^3/uL RBC (4.1-5.4) x10^6/uL Hgb (12.0-16.0) g/dL Hct (35-47) % MCV (78-100) fL MCH (26-32) pg MCHC (32-36) g/dL RDW (11.5-14.0) % Plt Count (150-450) x10^3/uL MPV (7.5-11.0) fL Gran % (36.0-66.0) % Immature Gran % (Auto) (0.00-0.4) % Nucleat RBC Rel Count (0.00-0.1) % Eos # (Auto) (0-0.5) x10^3/uL Immature Gran # (Auto) (0.00-0.03) x10^3u/L Absolute Lymphs (auto) (1.0-4.6) x10^3/uL Absolute Monos (auto) (0.0-1.3) x10^3/uL Absolute Nucleated RBC (0.00-0.01) x10^3u/L Lymphocytes % (24.0-44.0) % Monocytes % (0.0-12.0) % Eosinophils % (0.00-5.0) % Basophils % (0.0-0.4) % Absolute Granulocytes (1.4-6.9) x10^3/uL Basophils # (0-0.4) x10^3/uL D-Dimer (0.0-0.50) mg/L Sodium (135-145) mmol/L Potassium (3.5-5.1) mmol/L Chloride (98-107) mmol/L Carbon Dioxide (22-30) mmol/L Anion Gap (5-15) MEQ/L BUN (7-17) mg/dL Creatinine (0.52-1.04) mg/dL Estimated GFR ML/MIN Glucose (74-106) mg/dL POC Glucometer 210 H 295 H 295 H (74 to 106) mg/dL Lactic Acid (0.4-2.0) Calcium (8.4-10.2) mg/dL Total Bilirubin (0.2-1.3) mg/dL AST (14-36) U/L ALT (0-35) U/L Alkaline Phosphatase (38-126) U/L Troponin I (0.000-0.033) ng/mL NT-Pro-B Natriuret Pep (<300) pg/mL Serum Total Protein (6.3-8.2) g/dL Albumin (3.5-5.0) g/dL Urine Color (Yellow) Urine Appearance (Clear) Urine pH (4.6-8.0) Ur Specific [place] (1.005-1.030) Urine Protein (Negative) Urine Glucose (UA) (Negative) mg/dL Urine Ketones (Negative) Urine Blood (Negative) Urine Nitrite (Negative) Urine Bilirubin (Negative) Urine Urobilinogen (0.2) mg/dL Ur Leukocyte Esterase (Negative) U Hyaline Cast (Auto) (0-2) /LPF Urine Microscopic RBC (0-5) /HPF Urine Microscopic WBC (0-5) /HPF Ur Epithelial Cells (None Seen) /HPF Urine Bacteria (None Seen) /HPF Urine Culture Reflexed (NO) Influenza Type A Ag (NEGATIVE) Influenza Type B Ag (NEGATIVE) RSV (PCR) (NEGATIVE) SARS-CoV-2 (PCR) (NEGATIVE) Micro Results-Entire Visit: Accuchecks Date 12/30/23 Date 12/30/23 Time 11:49 Time 07:17 - Radiology Exams Ordered Rad Exams-Entire Visit: Radiology Procedures Category Date Time Status CHEST WITH CONTRAST [CT] Stat Exams 12/29/23 20:49 Completed - Procedures and Test Procedures and Tests throughout Hospitalization: Therapy Orders & Screens 12/29/23 20:00 Respiratory Therapy Assessment DAILY Comment: 12/29/23 23:17 Respiratory Therapy Consult ROUTINE Comment: Reason For Exam: Diagnosis: Pneumonia, fever, hypoxia 12/30/23 00:28 Oxygen Nasal Cannula 2 lpm Comment: Diagnosis: Pneumonia, fever, hypoxia 12/30/23 00:41 ST Screen per Nursing Assess ONCE Comment: Protocol Order Physician Instructions: Greater than [address] Admission Screening Reason For Exam: Triggered on Admission Diagnosis: Pneumonia, fever, hypoxia CVA/Dyshpagia/Aphasia: No Cognitive Deficits: No Dehydration/Nutrition Deficit: No Reflux: No Oral-Motor Difficulties: No Pneumonia: Yes Alf Resident: No Total Points: 5 12/30/23 08:27 Incentive Spirometry TID Comment: Diagnosis: Pneumonia, fever, hypoxia 12/30/23 11:16 Qualify for Home Oxygen TODAY Comment: Diagnosis: Pneumonia, fever, hypoxia Discharge Exam General Appearance: no apparent distress Neurologic Exam: alert, oriented x 3, cooperative Eye Exam: PERRL Ears, Nose, Throat Exam: normal ENT inspection Neck Exam: normal inspection Respiratory Exam: crackles/rales Cardiovascular Exam: regular rate/rhythm, normal heart sounds Gastrointestinal/Abdomen Exam: soft, normal bowel sounds Pelvic Exam: deferred Rectal Exam: deferred Back Exam: normal inspection Extremity Exam: normal inspection Skin Exam: normal color Final Diagnosis/Problem List - Final Discharge Diagnosis/Problem (1) Pneumonia Current Visit: Yes Status: Acute Code(s): J18.9 - PNEUMONIA, UNSPECIFIED ORGANISM (2) Acute respiratory failure Current Visit: Yes Status: Acute Code(s): J96.00 - ACUTE RESPIRATORY FAILURE, UNSP W HYPOXIA OR HYPERCAPNIA (3) Diabetes mellitus Current Visit: Yes Status: Chronic Code(s): E11.9 - TYPE 2 DIABETES MELLITUS WITHOUT COMPLICATIONS (4) CAD (coronary artery disease) Current Visit: Yes Status: Chronic Code(s): I25.10 - ATHSCL HEART DISEASE OF LIME CORONARY ARTERY W/O ANG PCTRS (5) Hypothyroid Current Visit: Yes Status: Chronic Code(s): E03.9 - HYPOTHYROIDISM, UNSPECIFIED (6) HLD (hyperlipidemia) Current Visit: Yes Status: Chronic Code(s): E78.5 - HYPERLIPIDEMIA, UNSPECIFIED (7) History of esophageal cancer Current Visit: Yes Status: Chronic Code(s): Z85.01 - PERSONAL HISTORY OF MALIGNANT NEOPLASM OF ESOPHAGUS - Discharge Disposition: Home, Self-Care Condition: Stable Prescriptions: New Methylprednisolone Packet [Medrol Dosepack] 4 mg PO UD #30 packet Cefpodoxime Proxetil 200 mg [Vantin 200 mg] 200 mg PO BID 7 Days #14 tablet Azithromycin 250 mg [Zithromax 250 MG TABLET] 250 mg PO DAILY 5 Days #5 tablet Continue Sucralfate 1 gm [Carafate 1 GM] 1 gm PO BID Nebivolol HCl [Bystolic] 5 mg PO BID Aspirin 81 mg PO DAILY Levothyroxine Sodium 50 Mcg [Synthroid 50 Mcg] 75 mcg PO DAILY Hydrocodone/Acetaminophen [Hydrocodone-Acetamin 5-325 mg ###] 1 tab PO Q4-6H PRN PRN PRN Reason: Pain Cyanocobalamin (Vitamin B-12) [Vitamin B-12] 500 mcg SL DAILY Magnesium Chloride [Slow-Mag] 143 mg PO HS Simvastatin 20 mg PO HS Clopidogrel Bisulfate [Clopidogrel] 75 mg PO DAILY Calcium Carbonate/Vitamin D3 [Caltrate 600 Plus D3 Tablet] 1 each PO BID PANTOPRAZOLE 40 mg Tablet [Protonix 40MG Tablet] 40 mg PO BID Ranolazine 500 MG [Ranexa 500 MG] 1 tab PO DAILY glipiZIDE [Glucotrol] 10 mg PO BID Diphenoxylate HCl/Atropine [Lomotil] 1 tab PO Q12H PRN PRN PRN Reason: Diarrhea Empagliflozin [Jardiance] 25 mg PO DAILY Sitagliptin Phosphate 50 MG [Januvia 50 MG] 50 mg PO BID Metformin HCl [Metformin HCl ER] 750 mg PO BID Follow up with: CHANI SPANN [Primary Care Provider] - 01/06/24 2:00 pm
[2023-12-30] MEDS ORDERED: ZOCOR 20MG PO SCH (22:00)
[2023-12-30] MEDS ORDERED: Zithromax 500 MG/ 250 ML NaCl Premix 500 MG/250 ML IVPB IV SCH (22:00)
[2023-12-30] MEDS ORDERED: MAGNESIUM CHLORIDE 71.5 MG PO SCH (22:00)
[2023-12-30] MEDS ORDERED: ROCEPHIN 1 GM / 100 ML NaCl 1 GM/100 ML IVPB IV SCH (22:00)
== END 2023-12-30 14:30 | disposition home health service (06) ==
LOC: ED 18:53 → UNDOADMOB 22:43 → MED SURG 22:43
PROVIDERS: ADMIT Student in an Organized Health Care Education/Training Program; ATTEND Student in an Organized Health Care Education/Training Program
DX: J18.9 Pneumonia, unspecified organism (principal); J96.00 Acute respiratory failure, unspecified whether with hypoxia or hypercapnia; E11.9 Type 2 diabetes mellitus without complications; I25.10 Atherosclerotic heart disease of native coronary artery without angina pectoris; E03.9 Hypothyroidism, unspecified; E78.5 Hyperlipidemia, unspecified; I25.2 Old myocardial infarction; Z85.01 Personal history of malignant neoplasm of esophagus; Z79.899 Other long term (current) drug therapy
CPT/HCPCS: 0241U; 36000; 36415; 71260; 80053; 81001; 82947; 83605; 83880; 84484; 85025; 85027; 85379; 87040; 87086; 93005; 93041; 93268; 94640; 94760; 94762; 96365; 96368; 96374; 99285; G0378; Q3014; 96360; J0456; J0696; J2919; A9270-GY